=== PATIENT | female | born 1960 | race American Indian/Alaskan Native ===

== ENCOUNTER 2019-02-01 16:46 | Inpatient (IN) | payer MEDICAID, OTHER ==
[2019-02-01] MEDS ORDERED: NACL 0.9% 1000 ML 1,000 ML IV ONE (17:26)
--- NOTE | 2019-02-01 17:33 | Emergency Department Report ---
HPI - General Chief Complaint: Dyspnea/Respdistress Time Seen by Provider: 02/01/19 17:18 - HPI HPI: Room 24 The patient is a 58-year-old female presenting with a chief complaint of chest pain. Patient states she has felt weak for a long time. When asked for how long she's felt weak the patient replies "forever." The patient states she came to the emergency department this for the past week she's had a constant chest pain. Patient will not describe the quality of pain but states she also feels short of breath and dizzy. Patient denies nausea or vomiting. The patient has a history of metastatic breast CA and states she last received radiation one week ago HPI update Family at bedside states the patient was recently discharged from [facility] last week and was diagnosed with a lower extremity DVT. They state the patient does not have any advanced directives and she is Full Code Location: [See above] Duration: [See above] Quality: [See above] Severity: [See above] Modifying factors: [see above] Context: [see above] Mode of transportation: [not driving] ED Past Medical Hx - Past Medical History Hx of Cancer: Yes (breast CA) - Family History Family history: no significant - Social History Smoking Status: Never Smoker Substance Use Type: None - Medications Home Medications: Home Medications Medication Instructions Recorded Confirmed Last Taken Type No Known Home Medications [No 02/06/19 02/06/19 Unknown History Reported Home Medications] ED Review of Systems ROS: Stated complaint: SOB OF BREATH Other details as noted in HPI Constitutional: weakness Eyes: denies: eye pain ENT: denies: throat pain Respiratory: shortness of breath Cardiovascular: chest pain Endocrine: no symptoms reported Gastrointestinal: denies: nausea, vomiting Genitourinary: denies: dysuria Musculoskeletal: denies: back pain Neurological: denies: headache Physical Exam - Physical Exam Vital Signs: Vital Signs 02/01/19 02/01/19 17:11 17:14 Temperature 98.6 F 98.6 F Pulse Rate 125 H 125 H Respiratory 27 H 27 H Rate Blood Pressure 131/83 Blood Pressure 131/83 [Right] O2 Sat by Pulse 97 97 Oximetry Physical Exam: GENERAL: The patient is well-developed well-nourished female lying on stretcher exhibiting increased work of breathing. [] HEENT: Normocephalic. Atraumatic. Extraocular motions are intact. Patient has moist mucous membranes. NECK: Trachea midline CHEST/LUNGS: Increased work of breathing. Accessory muscle use HEART/CARDIOVASCULAR: Regular. There is tachycardia. There is no gallop rub or murmur. ABDOMEN: Abdomen is soft, nontender. Patient has normal bowel sounds. There is no abdominal distention. SKIN: There is no rash. There is no diaphoresis. NEURO: The patient is awake, alert, and oriented. The patient is cooperative. The patient has normal speech MUSCULOSKELETAL: There is no evidence of acute injury. ED Course Vital Signs 02/01/19 02/01/19 17:11 17:14 Temperature 98.6 F 98.6 F Pulse Rate 125 H 125 H Respiratory 27 H 27 H Rate Blood Pressure 131/83 Blood Pressure 131/83 [Right] O2 Sat by Pulse 97 97 Oximetry ED Medical Decision Making - Lab Data Result diagrams: 02/05/19 04:35 02/05/19 04:35 - EKG Data -: EKG Interpreted by Me EKG shows normal: sinus rhythm Rate: tachycardia - EKG Data When compared to previous EKG there are: previous EKG unavailable Interpretation: other (no ischemic changes seen) - Radiology Data Radiology results: report reviewed (chest x-ray), image reviewed (chest x-ray) interpreted by me: Chest x-ray-left lower lobe haziness. No pneumothorax [facility] [address] [place] [address] XRay Report Signed Patient: SUSAN MÉNDEZ MR#: [id number] 3 : 1960 Acct:[id number] Age/Sex: 58 / F ADM Date: 02/01/19 Loc: ED Attending Dr: Ordering Physician: PASCALE ANTOINE MD Date of Service: 02/01/19 Procedure(s): XR chest 1V ap Accession Number(s): [id number] cc: PASCALE ANTOINE MD Fluoro Time In Minutes: CHEST 1 VIEW 5:34 PM INDICATION / CLINICAL INFORMATION: Shortness of breath. COMPARISON: None available. FINDINGS: SUPPORT DEVICES: None. HEART / MEDIASTINUM: There is mild cardiomegaly with a left ventricular configuration. Pulmonary vasculature is borderline. LUNGS / PLEURA: There is dense consolidation in the left lower lobe with obscuration of the hemidiaphragm. There may be a small left pleural effusion. No pneumothorax. ADDITIONAL FINDINGS: There are bilateral rib fractures which are of uncertain age. There is moderate thoracolumbar scoliosis. There is mild mottled lucency in the distal right clavicle with a possible fracture present. There are also may be a lytic lesion in the distal left clavicle. IMPRESSION: 1. Left lower lobe pneumonia. 2. Bilateral rib fractures. Possible fracture of the distal right clavicle could be pathologic. Possible lytic lesion in the distal left clavicle. Signer Name: Mango Llanes MD Signed: 02/01/2019 5:53 PM Workstation Name: [id number] Transcribed By: RT Dictated By: Mango Llanes MD Electronically Authenticated By: Mango Llanes MD Signed Date/Time: 02/01/191752 DD/ 48 TD/TT: [facility] [address] [id number] Cat Scan Report Signed Patient: SUSAN MÉNDEZ MR#: [id number] 3 : 1960 Acct:[id number] Age/Sex: 58 / F ADM Date: 02/01/19 Loc: ED Attending Dr: Ordering Physician: PASCALE ANTOINE MD Date of Service: 02/01/19 Procedure(s): CT angio chest Accession Number(s): [id number] cc: PASCALE ANTOINE MD CTA CHEST WITH IV CONTRAST INDICATION: shortness of breath. Metastatic breast CA. TECHNIQUE: Axial CT images were obtained through the chest after injection of 100 cc Omni 350 IV contrast. 3 plane MIP reconstructions were produced. All CT scans at this location are performed using CT dose reduction for ALARA by means of automated exposure control. COMPARISON: None available. FINDINGS: PULMONARY ARTERIES: No pulmonary emboli. THORACIC AORTA: No acute abnormality. HEART: Heart is moderately enlarged CORONARY ARTERIES: No significant calcification. PLEURA: Small bilateral pleural effusions No pneumothorax. LYMPH NODES: No significant adenopathy. LUNGS: Compressive and linear bilateral atelectasis. ADDITIONAL FINDINGS: None. UPPER ABDOMEN: No acute findings. SKELETAL STRUCTURES: Extensive lytic metastases are seen throughout the rib cage bilaterally and along the th oracic vertebral bodies. There is an acute displaced fracture involving the left 10th rib. Multiple old healed bilateral rib fracture deformities are noted. IMPRESSION: 1. No CT evidence for pulmonary embolism. 2. Extensive lytic skeletal metastases with acute probable pathologic fracture involving the left 10th posterior rib. 3. Cardiomegaly with small bilateral pleural effusions. Signer Name: Yair Jansen MD Signed: 02/01/2019 10:08 PM Workstation Name: [id number] Transcribed By: TL Dictated By: Yair Jansen MD Electronically Authenticated By: Yair Jansen MD Signed Date/Time: 02/01/192207 DD/ 99 TD/TT: - Differential Diagnosis ACS, PE, pneumonia, sepsis Critical care attestation.: If time is entered above; I have spent that time in minutes in the direct care of this critically ill patient, excluding procedure time. ED Disposition Clinical Impression: Chest pain, Rib fractures, Pathologic fracture of clavicle Disposition: OP ADMIT IP TO THIS HOSP Is pt being admited?: Yes Does the pt Need Aspirin: Yes Condition: Fair
--- NOTE | 2019-02-01 17:57 | XRay Report ---
CHEST 1 VIEW 5:34 PM INDICATION / CLINICAL INFORMATION: Shortness of breath. COMPARISON: None available. FINDINGS: SUPPORT DEVICES: None. HEART / MEDIASTINUM: There is mild cardiomegaly with a left ventricular configuration. Pulmonary vasc ulature is borderline. LUNGS / PLEURA: There is dense consolidation in the left lower lobe with obscuration of the hemidiaph ragm. There may be a small left pleural effusion. No pneumothorax. ADDITIONAL FINDINGS: There are bilateral rib fractures which are of uncertain age. There is moderate thoracolumbar scoliosis. There is mild mottled lucency in the distal right clavicle with a possible f racture present. There are also may be a lytic lesion in the distal left clavicle. IMPRESSION: 1. Left lower lobe pneumonia. 2. Bilateral rib fractures. Possible fracture of the distal right clavicle could be pathologic. Possi ble lytic lesion in the distal left clavicle. Signer Name: Mango Llanes MD Signed: 02/01/2019 5:53 PM Workstation Name: [id number]
[2019-02-01 18:08] LABS: Hematocrit 30.1 % (30.3-42.9); Hemoglobin 10.1 gm/dl (10.1-14.3); Mean Corpuscular HGB Conc 34 % (30-34); Mean Corpuscular Volume 95 fl (79-97); Platelet Count 123 K/mm3 (140-440); Red Blood Count 3.18 M/mm3 (3.65-5.03)
[2019-02-01 18:11] LABS: Red Cell Distribution Width 25.1 % (13.2-15.2)
[2019-02-01 18:18] LABS: INR 1.22 (0.87-1.13)
[2019-02-01 18:19] LABS: Partial Thromboplastin Time 27.2 Sec. (24.2-36.6)
[2019-02-01 18:25] LABS: Creatine Kinase MB 3.8 ng/mL (0.0-4.0)
[2019-02-01 18:26] LABS: Alanine Aminotransferase 23 units/L (7-56); Albumin 3.2 g/dL (3.9-5); BUN/Creatinine Ratio 37; Blood Urea Nitrogen 11 mg/dL (7-17); Calcium 9.5 mg/dL (8.4-10.2); Hemolysis Index 36
[2019-02-01] MEDS ORDERED: ZITHROMAX 500 MG in NACL 0.9% 250ML 250 ML IV ONE (18:36)
[2019-02-01] MEDS ORDERED: ROCEPHIN/NS 2 GM/100 ML 2 GM/100 ML BAG IV ONE (18:36)
[2019-02-01 19:16] LABS: Anisocytosis 1+; Basophils % (Manual) 0 % (0.0-1.8); Dimorphic RBC Yes; Eosinophils % (Manual) 0 % (0.0-4.3); Ovalocytes Few; Target Cells 1+; Total Cells Counted 100
[2019-02-01 19:17] LABS: Large Platelets 1+; Platelet Estimate Consistent w Auto
--- NOTE | 2019-02-01 22:12 | Cat Scan Report ---
CTA CHEST WITH IV CONTRAST INDICATION: shortness of breath. Metastatic breast CA. TECHNIQUE: Axial CT images were obtained through the chest after injection of 100 cc Omni 350 IV contrast. 3 sol ne MIP reconstructions were produced. All CT scans at this location are performed using CT dose reduc tion for ALARA by means of automated exposure control. COMPARISON: None available. FINDINGS: PULMONARY ARTERIES: No pulmonary emboli. THORACIC AORTA: No acute abnormality. HEART: Heart is moderately enlarged CORONARY ARTERIES: No significant calcification. PLEURA: Small bilateral pleural effusions No pneumothorax. LYMPH NODES: No significant adenopathy. LUNGS: Compressive and linear bilateral atelectasis. ADDITIONAL FINDINGS: None. UPPER ABDOMEN: No acute findings. SKELETAL STRUCTURES: Extensive lytic metastases are seen throughout the rib cage bilaterally and narinder g the thoracic vertebral bodies. There is an acute displaced fracture involving the left 10th rib. Mu ltiple old healed bilateral rib fracture deformities are noted. IMPRESSION: 1. No CT evidence for pulmonary embolism. 2. Extensive lytic skeletal metastases with acute probable pathologic fracture involving the left 10t h posterior rib. 3. Cardiomegaly with small bilateral pleural effusions. Signer Name: Yair Jansen MD Signed: 02/01/2019 10:08 PM Workstation Name: [id number]
[2019-02-01] MEDS ORDERED: TORADOL IV ONE (22:15)
--- NOTE | 2019-02-01 22:18 | History and Physical Report ---
History of Present Illness Date of examination: 02/01/19 History of present illness: 58-year-old with a history of hypertension, metastatic breast cancer, because emergency room with complaints of chest pain located across the chest that started 3 months ago. francisco was diagnosed with breast cancer in 2013, status post lumpectomy, but over the last 3 months her cancer has metastasized, since then she has been having shortness of breath, started on home oxygen and chest pain secondary to metastases to the ribs and other bones. Also complaining of pain into the shoulders which are sharp, intermittent every 5 minutes, intensity 7/10, no radiation, relieved with Percocet at home. The patient also complaining of shortness of breath 2 months, she was placed on home oxygen. In the ER patient was placed on BiPAP She was admitted at [facility] January 21, she had presenting symptoms are shortness breath, chest pain. I have requested and reviewed the records. She had a V/Q which was negative for PE, Doppler was negative for DVT. 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 The patient was started on palliative radiation treatment 4 days ago. She was discharged to hospice from [facility], unclear if this was started Review of systems Constitutional: no weight loss, chills, fever Ears, eyes, nose, mouth and throat: no nasal congestion, no nasal discharge, no sinus pressure, no vision change, no red eye. Neck: No neck pain or rigidity. Cardiovascular: no palpitations, chest pain Respiratory: no cough, shortness of breath Gastrointestinal: no hematochezia, abdominal pain Genitourinary : no frequency , no hematuria Musculoskeletal: no joint swelling or muscle ache Integumentary: no rash, no pruritis Neurological: no parathesias, no focal weakness Endocrine: no cold or heat intolerance, no polyuria or polydipsia Hematologic/Lymphatic: no easy bruising, no easy bleeding, no gland swelling Allergic/Immunologic: no urticaria, no angioedema. PAST MEDICAL HISTORY:hypertension, metastatic breast cancer PAST SURGICAL HISTORY: Lumpectomy SOCIAL HISTORY: Denies alcohol, drugs, tobacco FAMILY HISTORY: Hypertension Medications and Allergies Allergies Allergy/AdvReac Type Severity Reaction Status Date / Time No Known Allergies Allergy Unverified 07/06/13 15:54 Home Medications Medication Instructions Recorded Confirmed Last Taken Type No Known Home Medications [No 02/06/19 02/06/19 Unknown History Reported Home Medications] Active Meds: Active Medications Ketorolac Tromethamine (Toradol) 15 mg IV ONCE ONE Stop: 02/01/19 22:16 Exam - Physical Exam Narrative exam: General Apperance: The patient lying in bed, breathing comfortable HEENT: Normocephalic, atraumatic. Pupils equally round and reactive to light, EOMI, no sclericterus or JVD or thyromegaly or nodule. , no carotid bruit, mucous membranes moist, no exudate or erythema Heart: S1-S2, regular is rhythm Lungs: Clear to auscultation bilaterally, breathing comfortable Abdomen: Positive bowel sounds, soft, nontender, nondistended, no organomegaly Extremities: No edema cyanosis clubbing Skin: no rash, nodule, warm and dry Neuro: cranial nerves 2-12 intact, speech is fluent, moves all four extremities - Constitutional Vitals: Temp Pulse Resp BP Pulse Ox 98.4 F 133 H 16 116/78 100 02/01/19 19:22 02/01/19 20:30 02/01/19 20:30 02/01/19 20:30 02/01/19 20:30 Results - Labs CBC & Chem 7: 02/08/19 04:20 02/08/19 04:20 Labs: Abnormal lab results 02/01/19 02/01/19 02/01/19 Range/Units 18:00 18:00 18:00 RBC 3.18 L (3.65-5.03) M/mm3 Hct 30.1 L (30.3-42.9) % RDW 25.1 H (13.2-15.2) % Plt Count 123 L (140-440) K/mm3 Seg Neuts % (Manual) 76.0 H (40.0-70.0) % Lymphocytes % (Manual) 12.0 L (13.4-35.0) % Monocytes % (Manual) 10.0 H (0.0-7.3) % Nucleated RBC % 15.0 H (0.0-0.9) % Lymphocytes # (Manual) 1.0 L (1.2-5.4) K/mm3 Monocytes # (Manual) 0.9 H (0.0-0.8) K/mm3 PT 15.1 H (12.2-14.9) Sec. INR 1.22 H (0.87-1.13) D-Dimer 6342.18 H (0-234) ng/mlDDU POC ABG pCO2 (35-45) POC ABG pO2 (80-105) Carbon Dioxide 32 H (22-30) mmol/L Creatinine 0.3 L (0.7-1.2) mg/dL Glucose 106 H (65-100) mg/dL AST 85 H (5-40) units/L NT-Pro-B Natriuret Pep 1304 H (0-900) pg/mL Albumin 3.2 L (3.9-5) g/dL 02/01/19 Range/Units 20:53 RBC (3.65-5.03) M/mm3 Hct (30.3-42.9) % RDW (13.2-15.2) % Plt Count (140-440) K/mm3 Seg Neuts % (Manual) (40.0-70.0) % Lymphocytes % (Manual) (13.4-35.0) % Monocytes % (Manual) (0.0-7.3) % Nucleated RBC % (0.0-0.9) % Lymphocytes # (Manual) (1.2-5.4) K/mm3 Monocytes # (Manual) (0.0-0.8) K/mm3 PT (12.2-14.9) Sec. INR (0.87-1.13) D-Dimer (0-234) ng/mlDDU POC ABG pCO2 52.0 H (35-45) POC ABG pO2 111 H (80-105) Carbon Dioxide (22-30) mmol/L Creatinine (0.7-1.2) mg/dL Glucose (65-100) mg/dL AST (5-40) units/L NT-Pro-B Natriuret Pep (0-900) pg/mL Albumin (3.9-5) g/dL - Imaging and Cardiology EKG: image reviewed Chest x-ray: image reviewed CT scan - chest: report reviewed Assessment and Plan Assessment Acute respiratory failure Chest pain secondary to multiple lytic lesions in the ribs Possible pathological fracture of rib 10 Metastatic breast cancer Plan Admit to medicine Consult sample case porter for hospice Continue BiPAP, DVT rophalaxis
[2019-02-01] MEDS ORDERED: NORCO 5/325 PO PRN (23:33)
[2019-02-01] MEDS ORDERED: SODIUM CHLORIDE FLUSH SYRINGE 10 ML IV PRN (23:33)
[2019-02-01] MEDS ORDERED: ZOFRAN IV PRN (23:33)
[2019-02-01] MEDS ORDERED: TYLENOL PO PRN (23:33)
[2019-02-02 04:59] LABS: Hemoglobin 9.5 gm/dl (10.1-14.3); Mean Corpuscular HGB Conc 34 % (30-34); Mean Corpuscular Volume 94 fl (79-97); Platelet Count 105 K/mm3 (140-440); Red Blood Count 2.97 M/mm3 (3.65-5.03)
[2019-02-02 05:14] LABS: BUN/Creatinine Ratio 37; Blood Urea Nitrogen 11 mg/dL (7-17); Hemolysis Index 4
[2019-02-02 05:27] LABS: Red Cell Distribution Width 24.8 % (13.2-15.2)
[2019-02-02] MEDS ORDERED: LOVENOX SUB-Q SCH (10:00)
[2019-02-02 12:10] LABS: Anisocytosis 2+; Basophils % (Manual) 0 % (0.0-1.8); Eosinophils % (Manual) 0 % (0.0-4.3); Total Cells Counted 100
[2019-02-02 12:11] LABS: Hypochromasia 1+; Macrocytosis 1+; Platelet Estimate Consistent w Auto
[2019-02-02] MEDS: D5/0.45NS 1,000 ML IV SCH (14:16)
[2019-02-02] MEDS: SODIUM CHLORIDE FLUSH SYRINGE 10 ML IV SCH ×2 (14:16→21:12)
--- NOTE | 2019-02-02 14:37 | Event Note ---
Date: 02/02/19 Long discussion at bedside, over 30 minutes discussing Pulmonary status and Intubation. Daughter, Brother and Sister at bedside. They claim to understand the current disease state but feel that the patient should be full code and resuscitated. RT has attempted several times to wean from bipap, each time she has failed. Per report and the daughter at the bedside, she was admitted to [place] with the same diagnosis and given the same prognosis. Per the daughter she was "doped up" and sent home with hospice. They have since rescinded and a re here now. I explained to them that intubation would not fix the underlying problem of Stage IV malignancy of the breast. I also explained to them that doing CPR (chest compressions and shocks) are going to cause more harm than good for the patient as they too do not fix the underlying problem as listed above. I never once told the family that they had to make a choice between breathing and feeding. what I explained to them that feeding is contraindicated on a patient with continuous bipap therapy as they are at a higher risk of aspiration. The family began to ask me about other option for feeding and I had to stop because that is not why I was consulted. The family requests that she remain a full code and this is documented. At this time, she is on 12/6 and 35%. She will likely progress, the time frame I do not know. When she requires intubation, will intubate and then transfer to unit for further care. Daughter was very upset when I left and I apologized if I made her upset, but my job is to explain the current clinical situation to the best of my abilities to help the family understand the severity. Please call if questions.
--- NOTE | 2019-02-02 16:51 | Progress Note ---
Assessment and Plan Assessment and plan: 58-year-old Tuval[place] female with medical history significant for stage IV breast cancer, metastasis to the bone and to the spinal cord with spinal compression is interested to the emergency department with complaints of shortness of breath. CTA was done in the emergency department and no PE was shown. Patient was recently discharged from [facility] to hospice care. I get the record from [facility] and she was admitted with the same problems. patient is full code and family wants everything to be done and don't want hospice care instead they want HH at discharge Acute on chronic hypoxic respiratory failure - Patient was on home oxygen - Continue BiPAP - Pulmonary consult appreciated - If patient deteriorates will intubate her Persistent tachycardia - Continue on Lopressor IV when necessary Stage IV breast cancer, with metastatsis to the bone and spine - Supportive care - Was treated with palliative intent therapy at [facility] - patient is on D5 half normal saline - Patient refused NG tube feeding - We can now take off the BiPAP because patient is desaturating CODE STATUS full Disposition; continue inpatient care. Patient is high risk of deterioration. The high probability of a clinically significant, sudden or life threatening deterioration of the [respiratory, CVS] system(s) required my full and direct attention, intervention and personal management. The aggregate critical care time was [45] minutes. This time is in addition to time spent performing report ed procedures but includes the following: [x] Data Review and interpretation [x] Patient assessment and monitoring of vital signs [x] Documentation [x] Medication orders and management History Interval history: Patient was seen and evaluated this morning, patient is in no respiratory distress. She is on BiPAP. Hospitalist Physical - Physical exam Narrative exam: patient is in respiratory distress. The patient appeared well nourished and normally developed. Vital signs as documented. Head exam is unremarkable. No scleral icterus . Neck is without jugular venous distension, thyromegaly, or carotid bruits. Lungs are clear to auscultation. Cardiac exam reveals tachycardia. Abdominal exam reveals normal bowel sounds, no masses, no organomegaly and no aortic enlargement. Extremities are nonedematous and both femoral and pedal pulses are normal. DIVISION CONTROLLER: Alert and oriented 3. No focal weakness. - Constitutional Vitals: Temp Pulse Resp BP Pulse Ox 97.9 F 133 H 31 H 121/73 98 02/02/19 12:39 02/02/19 15:36 02/02/19 15:36 02/02/19 12:39 02/02/19 15:36 Results - Labs CBC & Chem 7: 02/02/19 03:54 02/02/19 03:54 Labs: Laboratory Last Values WBC 5.6 K/mm3 (4.5-11.0) 02/02/19 03:54 RBC 2.97 M/mm3 (3.65-5.03) L 02/02/19 03:54 Hgb 9.5 gm/dl (10.1-14.3) L 02/02/19 03:54 Hct 28.0 % (30.3-42.9) L 02/02/19 03:54 MCV 94 fl (79-97) 02/02/19 03:54 MCH 32 pg (28-32) 02/02/19 03:54 MCHC 34 % (30-34) 02/02/19 03:54 RDW 24.8 % (13.2-15.2) H 02/02/19 03:54 Plt Count 105 K/mm3 (140-440) L 02/02/19 03:54 [place] % (Auto) Die Cast Operator 02/02/19 03:54 Add Manual Diff Complete 02/02/19 03:54 Total Counted 100 02/02/19 03:54 Seg Neuts % (Manual) 79.0 % (40.0-70.0) H 02/02/19 03:54 3.0 % 02/02/19 03:54 5.0 % (13.4-35.0) L 02/02/19 03:54 Reactive Lymphs % (Man) 0 % 02/02/19 03:54 12.0 % (0.0-7.3) H 02/02/19 03:54 0 % (0.0-4.3) 02/02/19 03:54 0 % (0.0-1.8) 02/02/19 03:54 0 % 02/02/19 03:54 1.0 % 02/02/19 03:54 0 % 02/02/19 03:54 0 % 02/02/19 03:54 Nucleated RBC % 31.0 % (0.0-0.9) H 02/02/19 03:54 Seg Neutrophils # Man 0.0 K/mm3 (1.8-7.7) L 02/02/19 03:54 Band Neutrophils # 0.0 K/mm3 02/02/19 03:54 0.0 K/mm3 (1.2-5.4) L 02/02/19 03:54 Abs React Lymphs (Man) 0.0 K/mm3 02/02/19 03:54 0.0 K/mm3 (0.0-0.8) 02/02/19 03:54 0.0 K/mm3 (0.0-0.4) 02/02/19 03:54 0.0 K/mm3 (0.0-0.1) 02/02/19 03:54 0.0 K/mm3 02/02/19 03:54 0.0 K/mm3 02/02/19 03:54 0.0 K/mm3 02/02/19 03:54 Blast Cells # 0.0 K/mm3 02/02/19 03:54 WBC Morphology Not Reportable 02/02/19 03:54 Hypersegmented Neuts Not Reportable 02/02/19 03:54 Hyposegmented Neuts Not Reportable 02/02/19 03:54 Hypogranular Neuts Not Reportable 02/02/19 03:54 Not Reportable 02/02/19 03:54 Not Reportable 02/02/19 03:54 Not Reportable 02/02/19 03:54 Not Reportable 02/02/19 03:54 Not Reportable 02/02/19 03:54 Not Reportable 02/02/19 03:54 Consistent w auto 02/02/19 03:54 Not Reportable 02/02/19 03:54 Plt Clumps, EDTA Not Reportable 02/02/19 03:54 Not Reportable 02/02/19 03:54 Not Reportable 02/02/19 03:54 Not Reportable 02/02/19 03:54 Plt Morphology Comment Not Reportable 02/02/19 03:54 RBC Morphology Not Reportable 02/02/19 03:54 Dimorphic RBCs Not Reportable 02/02/19 03:54 Few 02/02/19 03:54 1+ 02/02/19 03:54 Not Reportable 02/02/19 03:54 2+ 02/02/19 03:54 Not Reportable 02/02/19 03:54 1+ 02/02/19 03:54 Not Reportable 02/02/19 03:54 Not Reportable 02/02/19 03:54 Not Reportable 02/02/19 03:54 Not Reportable 02/02/19 03:54 Not Reportable 02/02/19 03:54 Not Reportable 02/02/19 03:54 Not Reportable 02/02/19 03:54 Not Reportable 02/02/19 03:54 Not Reportable 02/02/19 03:54 Not Reportable 02/02/19 03:54 Not Reportable 02/02/19 03:54 Not Reportable 02/02/19 03:54 Not Reportable 02/02/19 03:54 Acanthocytes (Spur) Not Reportable 02/02/19 03:54 Rouleaux Not Reportable 02/02/19 03:54 Not Reportable 02/02/19 03:54 Not Reportable 02/02/19 03:54 Not Reportable 02/02/19 03:54 Not Reportable 02/02/19 03:54 Hem Pathologist Commnt No 02/02/19 03:54 PT 15.1 Sec. (12.2-14.9) H 02/01/19 18:00 INR 1.22 (0.87-1.13) H 02/01/19 18:00 APTT 27.2 Sec. (24.2-36.6) 02/01/19 18:00 6342.18 ng/mlDDU (0-234) H 02/01/19 18:00 POC ABG pH 7.449 (7.35-7.45) 02/02/19 09:49 POC ABG pCO2 39.9 (35-45) 02/02/19 09:49 POC ABG pO2 72 (80-105) L 02/02/19 09:49 POC ABG HCO3 27.6 (22-26 mml/L) 02/02/19 09:49 POC ABG Total CO2 29 (23-27mmol/L) 02/02/19 09:49 POC ABG O2 Sat 95 02/02/19 09:49 POC ABG Base Excess 4 ((-2) - (+3)mmol/L) 02/02/19 09:49 35 % 02/02/19 09:49 Sodium 145 mmol/L (137-145) 02/02/19 03:54 Potassium 3.9 mmol/L (3.6-5.0) 02/02/19 03:54 Chloride 105.5 mmol/L (98-107) 02/02/19 03:54 Carbon Dioxide 29 mmol/L (22-30) 02/02/19 03:54 14 mmol/L 02/02/19 03:54 BUN 11 mg/dL (7-17) 02/02/19 03:54 0.3 mg/dL (0.7-1.2) L 02/02/19 03:54 Estimated GFR > 60 ml/min 02/02/19 03:54 37 % 02/02/19 03:54 Glucose 103 mg/dL (65-100) H 02/02/19 03:54 Calcium 9.0 mg/dL (8.4-10.2) 02/02/19 03:54 0.80 mg/dL (0.1-1.2) 02/01/19 18:00 AST 85 units/L (5-40) H 02/01/19 18:00 ALT 23 units/L (7-56) 02/01/19 18:00 99 units/L (35-129) 02/01/19 18:00 132 units/L (30-135) 02/01/19 18:00 CK-MB (CK-2) 3.8 ng/mL (0.0-4.0) 02/01/19 18:00 CK-MB (CK-2) Rel Index 2.8 (0-4) 02/01/19 18:00 < 0.010 ng/mL (0.00-0.029) 02/01/19 18:00 NT-Pro-B Natriuret Pep 1304 pg/mL (0-900) H 02/01/19 18:00 6.6 g/dL (6.3-8.2) 02/01/19 18:00 3.2 g/dL (3.9-5) L 02/01/19 18:00 0.9 % 02/01/19 18:00 Active Medications - Current Medications Current Medications: Generic Name Dose Route Start Last Admin Trade Name Freq PRN Reason Stop Dose Admin Acetaminophen 650 mg 02/01/19 23:33 Tylenol PO Q4H PRN Pain MILD(1-3)/Fever >100.5/PEREZ Acetaminophen/Hydrocodone Bitart 2 each 02/01/19 23:33 [place] 5/325 PO Q6H PRN Pain, Moderate (4-6) Hydromorphone HCl 0.5 mg 02/02/19 09:04 Dilaudid IV Q3H PRN Pain , Severe (7-10) Dextrose/Sodium Chloride 1,000 mls @ 75 mls/hr 02/02/19 14:00 02/02/19 14:16 D5/0.45ns IV 75 mls/hr DIRECT AYO Administration Metoprolol Tartrate 2.5 mg 02/02/19 16:33 Lopressor IV Q6HR PRN tachycardia Ondansetron HCl 4 mg 02/01/19 23:33 Zofran IV Q8H PRN Nausea And Vomiting Sodium Chloride 10 ml 02/02/19 10:00 02/02/19 14:16 Sodium Chloride Flush Syringe 10 Ml IV 10 ml BID AYO Administration Sodium Chloride 10 ml 02/01/19 23:33 Sodium Chloride Flush Syringe 10 Ml IV PRN PRN LINE FLUSH Nutrition/Malnutrition Assess - Dietary Evaluation Nutrition/Malnutrition Findings: Nutrition Notes Start: 02/02/19 15:14 Freq: Status: Active Protocol: Document 02/02/19 15:14 RM (Rec: 02/02/19 15:15 RM [id number]) Nutrition Notes Need for Assessment generated from: [facility] Initial or Follow up Brief Note Subjective/Other Information Screened for malnutrition. Pt w/MD at time of visit. Nutrition Intervention Follow-Up By: 02/03/19 Additional Comments Follow for malnutrition assessment
[2019-02-02] MEDS: DILAUDID IV PRN (16:59)
[2019-02-02] MEDS: LOPRESSOR IV PRN (17:43)
[2019-02-03] MEDS: D5/0.45NS 1,000 ML IV SCH ×2 (02:26→17:53)
[2019-02-03] MEDS: LOPRESSOR IV PRN (05:14)
[2019-02-03 05:40] LABS: Hematocrit 26.5 % (30.3-42.9); Hemoglobin 8.7 gm/dl (10.1-14.3); Mean Corpuscular HGB Conc 33 % (30-34); Mean Corpuscular Volume 95 fl (79-97)
[2019-02-03 05:43] LABS: Red Cell Distribution Width 24.5 % (13.2-15.2)
[2019-02-03 05:48] LABS: BUN/Creatinine Ratio 43; Blood Urea Nitrogen 13 mg/dL (7-17); Calcium 8.7 mg/dL (8.4-10.2); Hemolysis Index 83
[2019-02-03] MEDS: DILAUDID IV PRN (06:10)
[2019-02-03 08:26] LABS: Anisocytosis 2+; Basophils % (Manual) 0 % (0.0-1.8); Total Cells Counted 100
[2019-02-03 08:27] LABS: Poikilocytosis 1+; Target Cells 1+
[2019-02-03 08:28] LABS: Platelet Count 108 K/mm3 (140-440); Platelet Estimate Consistent w Auto; Schistocytes Rare
--- NOTE | 2019-02-03 15:28 | Progress Note ---
Assessment and Plan Assessment and plan: 58-year-old [place] female with medical history significant for stage IV breast cancer, metastasis to the bone and to the spinal cord with spinal compression is interested to the emergency department with complaints of shortness of breath. CTA was done in the emergency department and no PE was shown. Patient was recently discharged from [facility] to hospice care. I get the record from [facility] and she was admitted with the same problems. patient is full code and family wants everything to be done and don't want hospice care instead they want HH at discharge Acute on chronic hypoxic respiratory failure - Patient was on home oxygen - Continue BiPAP - Pulmonary consult appreciated - If patient deteriorates will intubate her Persistent tachycardia - Continue on Lopressor IV when necessary Stage IV breast cancer, with metastatsis to the bone and spine, paraplegia - Supportive care - Was treated with palliative intent therapy at [facility] - patient is on D5 half normal saline - Patient refused NG tube feeding - We can now take off the BiPAP because patient is desaturating CODE STATUS full Disposition; continue inpatient care. History Interval history: Patient was seen and evaluated this morning, patient is in no respiratory distress. She is on BiPAP. Hospitalist Physical - Physical exam Narrative exam: patient is in respiratory distress. The patient appeared well nourished and normally developed. Vital signs as documented. Head exam is unremarkable. No scleral icterus . Neck is without jugular venous distension, thyromegaly, or carotid bruits. Lungs are clear to auscultation. Cardiac exam reveals tachycardia. Abdominal exam reveals normal bowel sounds, no masses, no organomegaly and no aortic enlargement. Extremities are nonedematous and both femoral and pedal pulses are normal. 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 - Constitutional Vitals: Temp Pulse Resp BP Pulse Ox 97.3 F L 117 H 19 114/76 98 02/02/19 23:54 02/03/19 07:03 02/03/19 07:03 02/02/19 23:54 02/03/19 07:03 Results - Labs CBC & Chem 7: 02/03/19 04:43 02/03/19 04:43 Labs: Laboratory Last Values WBC 6.5 K/mm3 (4.5-11.0) 02/03/19 04:43 RBC 2.80 M/mm3 (3.65-5.03) L 02/03/19 04:43 Hgb 8.7 gm/dl (10.1-14.3) L 02/03/19 04:43 Hct 26.5 % (30.3-42.9) L 02/03/19 04:43 MCV 95 fl (79-97) 02/03/19 04:43 MCH 31 pg (28-32) 02/03/19 04:43 MCHC 33 % (30-34) 02/03/19 04:43 RDW 24.5 % (13.2-15.2) H 02/03/19 04:43 Plt Count 108 K/mm3 (140-440) L 02/03/19 04:43 Lymph % (Auto) Swine Nutritionist 02/03/19 04:43 [place] % (Auto) Swine Nutritionist 02/03/19 04:43 Eos % (Auto) Swine Nutritionist 02/03/19 04:43 Baso % (Auto) Swine Nutritionist 02/03/19 04:43 Lymph # Swine Nutritionist 02/03/19 04:43 [place] # Swine Nutritionist 02/03/19 04:43 Eos # Swine Nutritionist 02/03/19 04:43 Baso # Swine Nutritionist 02/03/19 04:43 Add Manual Diff Complete 02/03/19 04:43 Total Counted 100 02/03/19 04:43 Seg Neutrophils % Swine Nutritionist 02/03/19 04:43 Seg Neuts % (Manual) 70.0 % (40.0-70.0) 02/03/19 04:43 2.0 % 02/03/19 04:43 8.0 % (13.4-35.0) L 02/03/19 04:43 Reactive Lymphs % (Man) 0 % 02/03/19 04:43 16.0 % (0.0-7.3) H 02/03/19 04:43 1.0 % (0.0-4.3) 02/03/19 04:43 0 % (0.0-1.8) 02/03/19 04:43 3.0 % 02/03/19 04:43 0 % 02/03/19 04:43 0 % 02/03/19 04:43 0 % 02/03/19 04:43 Nucleated RBC % 43.0 % (0.0-0.9) H 02/03/19 04:43 Seg Neutrophils # Swine Nutritionist 02/03/19 04:43 Seg Neutrophils # Man 0.0 K/mm3 (1.8-7.7) L 02/03/19 04:43 Band Neutrophils # 0.0 K/mm3 02/03/19 04:43 0.0 K/mm3 (1.2-5.4) L 02/03/19 04:43 Abs React Lymphs (Man) 0.0 K/mm3 02/03/19 04:43 0.0 K/mm3 (0.0-0.8) 02/03/19 04:43 0.0 K/mm3 (0.0-0.4) 02/03/19 04:43 0.0 K/mm3 (0.0-0.1) 02/03/19 04:43 0.0 K/mm3 02/03/19 04:43 0.0 K/mm3 02/03/19 04:43 0.0 K/mm3 02/03/19 04:43 Blast Cells # 0.0 K/mm3 02/03/19 04:43 WBC Morphology Not Reportable 02/03/19 04:43 Hypersegmented Neuts Not Reportable 02/03/19 04:43 Hyposegmented Neuts Not Reportable 02/03/19 04:43 Hypogranular Neuts Not Reportable 02/03/19 04:43 Not Reportable 02/03/19 04:43 Not Reportable 02/03/19 04:43 Not Reportable 02/03/19 04:43 Not Reportable 02/03/19 04:43 Not Reportable 02/03/19 04:43 Not Reportable 02/03/19 04:43 Consistent w auto 02/03/19 04:43 Not Reportable 02/03/19 04:43 Plt Clumps, EDTA Not Reportable 02/03/19 04:43 Not Reportable 02/03/19 04:43 Not Reportable 02/03/19 04:43 Not Reportable 02/03/19 04:43 Plt Morphology Comment Not Reportable 02/03/19 04:43 RBC Morphology Not Reportable 02/03/19 04:43 Dimorphic RBCs Not Reportable 02/03/19 04:43 Few 02/03/19 04:43 Not Reportable 02/03/19 04:43 1+ 02/03/19 04:43 2+ 02/03/19 04:43 Not Reportable 02/03/19 04:43 Not Reportable 02/03/19 04:43 Not Reportable 02/03/19 04:43 Not Reportable 02/03/19 04:43 Not Reportable 02/03/19 04:43 1+ 02/03/19 04:43 Not Reportable 02/03/19 04:43 Not Reportable 02/03/19 04:43 Not Reportable 02/03/19 04:43 Not Reportable 02/03/19 04:43 Not Reportable 02/03/19 04:43 Not Reportable 02/03/19 04:43 Not Reportable 02/03/19 04:43 Not Reportable 02/03/19 04:43 Not Reportable 02/03/19 04:43 Acanthocytes (Spur) Not Reportable 02/03/19 04:43 Rouleaux Not Reportable 02/03/19 04:43 Not Reportable 02/03/19 04:43 Rare 02/03/19 04:43 Not Reportable 02/03/19 04:43 Not Reportable 02/03/19 04:43 Hem Pathologist Commnt No 02/03/19 04:43 PT 15.1 Sec. (12.2-14.9) H 02/01/19 18:00 INR 1.22 (0.87-1.13) H 02/01/19 18:00 APTT 27.2 Sec. (24.2-36.6) 02/01/19 18:00 6342.18 ng/mlDDU (0-234) H 02/01/19 18:00 POC ABG pH 7.449 (7.35-7.45) 02/02/19 09:49 POC ABG pCO2 39.9 (35-45) 02/02/19 09:49 POC ABG pO2 72 (80-105) L 02/02/19 09:49 POC ABG HCO3 27.6 (22-26 mml/L) 02/02/19 09:49 POC ABG Total CO2 29 (23-27mmol/L) 02/02/19 09:49 POC ABG O2 Sat 95 02/02/19 09:49 POC ABG Base Excess 4 ((-2) - (+3)mmol/L) 02/02/19 09:49 35 % 02/02/19 09:49 Sodium 145 mmol/L (137-145) 02/03/19 04:43 Potassium 4.4 mmol/L (3.6-5.0) 02/03/19 04:43 Chloride 108.1 mmol/L (98-107) H 02/03/19 04:43 Carbon Dioxide 26 mmol/L (22-30) 02/03/19 04:43 15 mmol/L 02/03/19 04:43 BUN 13 mg/dL (7-17) 02/03/19 04:43 0.3 mg/dL (0.7-1.2) L 02/03/19 04:43 Estimated GFR > 60 ml/min 02/03/19 04:43 43 % 02/03/19 04:43 Glucose 145 mg/dL (65-100) H 02/03/19 04:43 Calcium 8.7 mg/dL (8.4-10.2) 02/03/19 04:43 0.80 mg/dL (0.1-1.2) 02/01/19 18:00 AST 85 units/L (5-40) H 02/01/19 18:00 ALT 23 units/L (7-56) 02/01/19 18:00 99 units/L (35-129) 02/01/19 18:00 132 units/L (30-135) 02/01/19 18:00 CK-MB (CK-2) 3.8 ng/mL (0.0-4.0) 02/01/19 18:00 CK-MB (CK-2) Rel Index 2.8 (0-4) 02/01/19 18:00 < 0.010 ng/mL (0.00-0.029) 02/01/19 18:00 NT-Pro-B Natriuret Pep 1304 pg/mL (0-900) H 02/01/19 18:00 6.6 g/dL (6.3-8.2) 02/01/19 18:00 3.2 g/dL (3.9-5) L 02/01/19 18:00 0.9 % 02/01/19 18:00 Active Medications - Current Medications Current Medications: Generic Name Dose Route Start Last Admin Trade Name Freq PRN Reason Stop Dose Admin Acetaminophen 650 mg 02/01/19 23:33 Tylenol PO Q4H PRN Pain MILD(1-3)/Fever >100.5/PEREZ Acetaminophen/Hydrocodone Bitart 2 each 02/01/19 23:33 [place] 5/325 PO Q6H PRN Pain, Moderate (4-6) Hydromorphone HCl 0.5 mg 02/02/19 09:04 02/03/19 06:10 Dilaudid IV 0.5 mg Q3H PRN Administration Pain , Severe (7-10) Dextrose/Sodium Chloride 1,000 mls @ 75 mls/hr 02/02/19 14:00 02/03/19 02:26 D5/0.45ns IV 75 mls/hr DIRECT AYO Administration Metoprolol Tartrate 2.5 mg 02/02/19 16:33 02/03/19 05:14 Lopressor IV 2.5 mg Q6HR PRN Administration tachycardia Ondansetron HCl 4 mg 02/01/19 23:33 Zofran IV Q8H PRN Nausea And Vomiting Sodium Chloride 10 ml 02/02/19 10:00 02/02/19 21:12 Sodium Chloride Flush Syringe 10 Ml IV 10 ml BID AYO Administration Sodium Chloride 10 ml 02/01/19 23:33 Sodium Chloride Flush Syringe 10 Ml IV PRN PRN LINE FLUSH Nutrition/Malnutrition Assess - Dietary Evaluation Nutrition/Malnutrition Findings: Nutrition Notes Start: 02/02/19 15:14 Freq: Status: Active Protocol: Document 02/02/19 15:14 RM (Rec: 02/02/19 15:15 [id number]) Nutrition Notes Need for Assessment generated from: [facility] Initial or Follow up Brief Note Subjective/Other Information Screened for malnutrition. Pt w/MD at time of visit. Nutrition Intervention Follow-Up By: 02/03/19 Additional Comments Follow for malnutrition assessment
[2019-02-03] MEDS: SODIUM CHLORIDE FLUSH SYRINGE 10 ML IV SCH (17:53)
[2019-02-04] MEDS: DILAUDID IV PRN ×2 (00:25→19:58)
[2019-02-04] MEDS: SODIUM CHLORIDE FLUSH SYRINGE 10 ML IV SCH ×3 (00:26→21:19)
[2019-02-04] MEDS: D5/0.45NS 1,000 ML IV SCH (04:57)
--- NOTE | 2019-02-04 13:30 | Progress Note ---
Assessment and Plan Assessment and plan: 58-year-old [place] female with medical history significant for stage IV breast cancer, metastasis to the bone and to the spinal cord with spinal compression is interested to the emergency department with complaints of shortness of breath. CTA was done in the emergency department and no PE was shown. Patient was recently discharged from [facility] to hospice care. I get the record from [facility] and she was admitted with the same problems. patient is full code and family wants everything to be done and don't want hospice care instead they want HH at discharge Acute on chronic hypoxic respiratory failure - Patient was on home oxygen - Continue BiPAP - Pulmonary consult appreciated - If patient deteriorates will intubate her Persistent tachycardia - Continue on Lopressor IV when necessary Stage IV breast cancer, with metastatsis to the bone and spine, paraplegia - Supportive care - Was treated with palliative intent therapy at [facility] - patient is on D5 half normal saline - Patient refused NG tube feeding - We can now take off the BiPAP because patient is desaturating CODE STATUS full Disposition; continue inpatient care. History Interval history: Patient was seen and evaluated this morning, patient is in no respiratory distress. She is on BiPAP. Hospitalist Physical - Physical exam Narrative exam: patient is in respiratory distress. The patient appeared well nourished and normally developed. Vital signs as documented. Head exam is unremarkable. No scleral icterus . Neck is without jugular venous distension, thyromegaly, or carotid bruits. Lungs are clear to auscultation. Cardiac exam reveals tachycardia. Abdominal exam reveals normal bowel sounds, no masses, no organomegaly and no aortic enlargement. Extremities are nonedematous and both femoral and pedal pulses are normal. ACCESS CONTROL OFFICER:paraplegic. - Constitutional Vitals: Temp Pulse Resp BP Pulse Ox 97.8 F 101 H 20 126/75 99 02/04/19 08:57 02/04/19 10:00 02/04/19 08:57 02/04/19 08:57 02/04/19 08:57 Results - Labs CBC & Chem 7: 02/03/19 04:43 02/03/19 04:43 Labs: Laboratory Last Values WBC 6.5 K/mm3 (4.5-11.0) 02/03/19 04:43 RBC 2.80 M/mm3 (3.65-5.03) L 02/03/19 04:43 Hgb 8.7 gm/dl (10.1-14.3) L 02/03/19 04:43 Hct 26.5 % (30.3-42.9) L 02/03/19 04:43 MCV 95 fl (79-97) 02/03/19 04:43 MCH 31 pg (28-32) 02/03/19 04:43 MCHC 33 % (30-34) 02/03/19 04:43 RDW 24.5 % (13.2-15.2) H 02/03/19 04:43 Plt Count 108 K/mm3 (140-440) L 02/03/19 04:43 Lymph % (Auto) Bilingual Instructor 02/03/19 04:43 [place] % (Auto) Bilingual Instructor 02/03/19 04:43 Eos % (Auto) Bilingual Instructor 02/03/19 04:43 Baso % (Auto) Bilingual Instructor 02/03/19 04:43 Lymph # Bilingual Instructor 02/03/19 04:43 Mobile # Bilingual Instructor 02/03/19 04:43 Eos # Bilingual Instructor 02/03/19 04:43 Baso # Bilingual Instructor 02/03/19 04:43 Add Manual Diff Complete 02/03/19 04:43 Total Counted 100 02/03/19 04:43 Seg Neutrophils % Bilingual Instructor 02/03/19 04:43 Seg Neuts % (Manual) 70.0 % (40.0-70.0) 02/03/19 04:43 2.0 % 02/03/19 04:43 8.0 % (13.4-35.0) L 02/03/19 04:43 Reactive Lymphs % (Man) 0 % 02/03/19 04:43 16.0 % (0.0-7.3) H 02/03/19 04:43 1.0 % (0.0-4.3) 02/03/19 04:43 0 % (0.0-1.8) 02/03/19 04:43 3.0 % 02/03/19 04:43 0 % 02/03/19 04:43 0 % 02/03/19 04:43 0 % 02/03/19 04:43 Nucleated RBC % 43.0 % (0.0-0.9) H 02/03/19 04:43 Seg Neutrophils # Bilingual Instructor 02/03/19 04:43 Seg Neutrophils # Man 0.0 K/mm3 (1.8-7.7) L 02/03/19 04:43 Band Neutrophils # 0.0 K/mm3 02/03/19 04:43 0.0 K/mm3 (1.2-5.4) L 02/03/19 04:43 Abs React Lymphs (Man) 0.0 K/mm3 02/03/19 04:43 0.0 K/mm3 (0.0-0.8) 02/03/19 04:43 0.0 K/mm3 (0.0-0.4) 02/03/19 04:43 0.0 K/mm3 (0.0-0.1) 02/03/19 04:43 0.0 K/mm3 02/03/19 04:43 0.0 K/mm3 02/03/19 04:43 0.0 K/mm3 02/03/19 04:43 Blast Cells # 0.0 K/mm3 02/03/19 04:43 WBC Morphology Not Reportable 02/03/19 04:43 Hypersegmented Neuts Not Reportable 02/03/19 04:43 Hyposegmented Neuts Not Reportable 02/03/19 04:43 Hypogranular Neuts Not Reportable 02/03/19 04:43 Not Reportable 02/03/19 04:43 Not Reportable 02/03/19 04:43 Not Reportable 02/03/19 04:43 Not Reportable 02/03/19 04:43 Not Reportable 02/03/19 04:43 Not Reportable 02/03/19 04:43 Consistent w auto 02/03/19 04:43 Not Reportable 02/03/19 04:43 Plt Clumps, EDTA Not Reportable 02/03/19 04:43 Not Reportable 02/03/19 04:43 Not Reportable 02/03/19 04:43 Not Reportable 02/03/19 04:43 Plt Morphology Comment Not Reportable 02/03/19 04:43 RBC Morphology Not Reportable 02/03/19 04:43 Dimorphic RBCs Not Reportable 02/03/19 04:43 Few 02/03/19 04:43 Not Reportable 02/03/19 04:43 1+ 02/03/19 04:43 2+ 02/03/19 04:43 Not Reportable 02/03/19 04:43 Not Reportable 02/03/19 04:43 Not Reportable 02/03/19 04:43 Not Reportable 02/03/19 04:43 Not Reportable 02/03/19 04:43 1+ 02/03/19 04:43 Not Reportable 02/03/19 04:43 Not Reportable 02/03/19 04:43 Not Reportable 02/03/19 04:43 Not Reportable 02/03/19 04:43 Not Reportable 02/03/19 04:43 Not Reportable 02/03/19 04:43 Not Reportable 02/03/19 04:43 Not Reportable 02/03/19 04:43 Not Reportable 02/03/19 04:43 Acanthocytes (Spur) Not Reportable 02/03/19 04:43 Rouleaux Not Reportable 02/03/19 04:43 Not Reportable 02/03/19 04:43 Rare 02/03/19 04:43 Not Reportable 02/03/19 04:43 Not Reportable 02/03/19 04:43 Hem Pathologist Commnt No 02/03/19 04:43 PT 15.1 Sec. (12.2-14.9) H 02/01/19 18:00 INR 1.22 (0.87-1.13) H 02/01/19 18:00 APTT 27.2 Sec. (24.2-36.6) 02/01/19 18:00 6342.18 ng/mlDDU (0-234) H 02/01/19 18:00 POC ABG pH 7.449 (7.35-7.45) 02/02/19 09:49 POC ABG pCO2 39.9 (35-45) 02/02/19 09:49 POC ABG pO2 72 (80-105) L 02/02/19 09:49 POC ABG HCO3 27.6 (22-26 mml/L) 02/02/19 09:49 POC ABG Total CO2 29 (23-27mmol/L) 02/02/19 09:49 POC ABG O2 Sat 95 02/02/19 09:49 POC ABG Base Excess 4 ((-2) - (+3)mmol/L) 02/02/19 09:49 35 % 02/02/19 09:49 Sodium 145 mmol/L (137-145) 02/03/19 04:43 Potassium 4.4 mmol/L (3.6-5.0) 02/03/19 04:43 Chloride 108.1 mmol/L (98-107) H 02/03/19 04:43 Carbon Dioxide 26 mmol/L (22-30) 02/03/19 04:43 15 mmol/L 02/03/19 04:43 BUN 13 mg/dL (7-17) 02/03/19 04:43 0.3 mg/dL (0.7-1.2) L 02/03/19 04:43 Estimated GFR > 60 ml/min 02/03/19 04:43 43 % 02/03/19 04:43 Glucose 145 mg/dL (65-100) H 02/03/19 04:43 Calcium 8.7 mg/dL (8.4-10.2) 02/03/19 04:43 0.80 mg/dL (0.1-1.2) 02/01/19 18:00 AST 85 units/L (5-40) H 02/01/19 18:00 ALT 23 units/L (7-56) 02/01/19 18:00 99 units/L (35-129) 02/01/19 18:00 132 units/L (30-135) 02/01/19 18:00 CK-MB (CK-2) 3.8 ng/mL (0.0-4.0) 02/01/19 18:00 CK-MB (CK-2) Rel Index 2.8 (0-4) 02/01/19 18:00 < 0.010 ng/mL (0.00-0.029) 02/01/19 18:00 NT-Pro-B Natriuret Pep 1304 pg/mL (0-900) H 02/01/19 18:00 6.6 g/dL (6.3-8.2) 02/01/19 18:00 3.2 g/dL (3.9-5) L 02/01/19 18:00 0.9 % 02/01/19 18:00 Active Medications - Current Medications Current Medications: Generic Name Dose Route Start Last Admin Trade Name Freq PRN Reason Stop Dose Admin Acetaminophen 650 mg 07/17/19 23:33 Tylenol PO Q4H PRN Pain MILD(1-3)/Fever >100.5/PEREZ Acetaminophen/Hydrocodone Bitart 2 each 02/01/19 23:33 [place] 5/325 PO Q6H PRN Pain, Moderate (4-6) Hydromorphone HCl 0.5 mg 02/02/19 09:04 02/04/19 00:25 Dilaudid IV 0.5 mg Q3H PRN Administration Pain , Severe (7-10) Dextrose/Sodium Chloride 1,000 mls @ 75 mls/hr 02/02/19 14:00 02/04/19 04:57 D5/0.45ns IV 75 mls/hr DIRECT AYO Administration Metoprolol Tartrate 2.5 mg 02/02/19 16:33 02/03/19 05:14 Lopressor IV 2.5 mg Q6HR PRN Administration tachycardia Ondansetron HCl 4 mg 02/01/19 23:33 Zofran IV Q8H PRN Nausea And Vomiting Sodium Chloride 10 ml 02/02/19 10:00 02/04/19 09:20 Sodium Chloride Flush Syringe 10 Ml IV 10 ml BID AYO Administration Sodium Chloride 10 ml 02/01/19 23:33 Sodium Chloride Flush Syringe 10 Ml IV PRN PRN LINE FLUSH Nutrition/Malnutrition Assess - Dietary Evaluation Nutrition/Malnutrition Findings: Nutrition Notes Start: 02/02/19 15:14 Freq: Status: Active Protocol: Document 02/03/19 17:55 RM (Rec: 02/03/19 18:27 RM [id number]) Nutrition Notes Initial or Follow up Assessment Current Diagnosis Hypertension,Respiratory Failure Other Pertinent Diagnosis Metastatic breast CA, CP Current Diet Regular Labs/Tests Reviewed Pertinent Medications Reviewed Height 5 ft 6 in Weight 69.3 kg Usual Body Weight 81.82 kg [place] Body Weight (kg) 59.09 BMI 24.6 Weight change and time frame 15.3% wt loss X 1 year Subjective/Other Information Pt and pt daughter in room at time of visit. Pt on BiPAP at time of visit. Pt daughter helped answer questions. Pt has been drinking 3 Ensure daily w/fruit METAL MOULDER'S ASSISTANT. Pt has also drunk an Ensure since admission. Nurse told bid writer that pt does not tolerate being off BiPAP well for even brief periods of time and oxygen levels drop. Pt daughter stated pt UBW was 180 lbs 1 year ago. Noted slight temporal wasting. Pt daughter requested that pt be started on TPN. Insurance Customer Service Specialist explained that TPN is not appropriate yet d/t pt being able to tolerate PO intake recently METAL MOULDER'S ASSISTANT. Insurance Customer Service Specialist recommended to wait to see if breathing improves first. Burn Absent Trauma Absent #1 Nutrition Diagnosis Malnutrition Etiology metastatic breast CA As Evidenced by Signs and Symptoms pt METAL MOULDER'S ASSISTANT only consuming 3 Ensure Enlive w/fruit daily, slight temporal wasting Is patient on ventilator? No Is Patient Ambulatory and/or Out of Bed No REE-([place]-St. Jeor-confined to bed) 1546.536 [facility] Additional Notes Protein Needs: 83-104g (1.2-1. 5g/kg) Fluid Needs: 1 ml/kcal Nutrition Intervention Change Diet Order: Diet advancement/Improvement of SOB Goal #1 Diet advancement Follow-Up By: 02/06/19 Additional Comments Follow for diet advancement/ improvement of SOB
[2019-02-05] MEDS: LOPRESSOR IV PRN (00:35)
[2019-02-05 06:04] LABS: Hematocrit 24.8 % (30.3-42.9); Hemoglobin 8.3 gm/dl (10.1-14.3); Mean Corpuscular HGB Conc 34 % (30-34); Mean Corpuscular Volume 94 fl (79-97); Platelet Count 134 K/mm3 (140-440); Red Blood Count 2.65 M/mm3 (3.65-5.03)
[2019-02-05 06:10] LABS: Red Cell Distribution Width 24.3 % (13.2-15.2)
[2019-02-05 06:24] LABS: BUN/Creatinine Ratio 33; Blood Urea Nitrogen 10 mg/dL (7-17); Calcium 8.8 mg/dL (8.4-10.2); Hemolysis Index 1
[2019-02-05 09:22] LABS: Basophils % (Manual) 0 % (0.0-1.8); Total Cells Counted 100
[2019-02-05 09:23] LABS: Hypochromasia Few; Target Cells 1+
[2019-02-05 09:24] LABS: Giant Platelets Few; Platelet Estimate Consistent w Auto
[2019-02-05] MEDS: D5/0.45NS 1,000 ML IV SCH ×2 (12:02→18:56)
[2019-02-05] MEDS: SODIUM CHLORIDE FLUSH SYRINGE 10 ML IV SCH ×2 (15:13→21:37)
--- NOTE | 2019-02-05 16:29 | Progress Note ---
Assessment and Plan Assessment and plan: 58-year-old [place] female with medical history significant for stage IV breast cancer, metastasis to the bone and to the spinal cord with spinal compression is interested to the emergency department with complaints of shortness of breath. CTA was done in the emergency department and no PE was shown. Patient was recently discharged from [facility] to hospice care. I get the record from [facility] and she was admitted with the same problems. patient is full code and family wants everything to be done and don't want hospice care instead they want HH at discharge Acute on chronic hypoxic respiratory failure - Patient was on home oxygen - Continue BiPAP - Pulmonary consult appreciated - If patient deteriorates will intubate her Persistent tachycardia - Continue on Lopressor IV when necessary Stage IV breast cancer, with metastatsis to the bone and spine, paraplegia - Supportive care - Was treated with palliative intent therapy at [facility] - patient is on D5 half normal saline - Patient refused NG tube feeding - We can now take off the BiPAP because patient is desaturating CODE STATUS full Disposition; continue inpatient care. History Interval history: Patient was seen and evaluated this morning, patient is in no respiratory distress. She is on BiPAP. Hospitalist Physical - Physical exam Narrative exam: patient is in respiratory distress. The patient appeared well nourished and normally developed. Vital signs as documented. Head exam is unremarkable. No scleral icterus . Neck is without jugular venous distension, thyromegaly, or carotid bruits. Lungs are clear to auscultation. Cardiac exam reveals tachycardia. Abdominal exam reveals normal bowel sounds, no masses, no organomegaly and no aortic enlargement. Extremities are nonedematous and both femoral and pedal pulses are normal. PARKING ATTENDANT:paraplegic. Hospitalist Physical - Constitutional Vitals: Temp Pulse Resp BP Pulse Ox 98.2 F 111 H 22 123/72 96 02/05/19 12:54 02/05/19 12:54 02/05/19 12:54 02/05/19 12:54 02/05/19 12:54 Results - Labs CBC & Chem 7: 02/05/19 04:35 02/05/19 04:35 Labs: Laboratory Last Values WBC 9.6 K/mm3 (4.5-11.0) 02/05/19 04:35 RBC 2.65 M/mm3 (3.65-5.03) L 02/05/19 04:35 Hgb 8.3 gm/dl (10.1-14.3) L 02/05/19 04:35 Hct 24.8 % (30.3-42.9) L 02/05/19 04:35 MCV 94 fl (79-97) 02/05/19 04:35 MCH 32 pg (28-32) 02/05/19 04:35 MCHC 34 % (30-34) 02/05/19 04:35 RDW 24.3 % (13.2-15.2) H 02/05/19 04:35 Plt Count 134 K/mm3 (140-440) L 02/05/19 04:35 Lymph % (Auto) Harbor Department Manager 02/03/19 04:43 [place] % (Auto) Harbor Department Manager 02/03/19 04:43 Eos % (Auto) Harbor Department Manager 02/03/19 04:43 Baso % (Auto) Harbor Department Manager 02/03/19 04:43 Lymph # Harbor Department Manager 02/03/19 04:43 [place] # Harbor Department Manager 02/03/19 04:43 Eos # Harbor Department Manager 02/03/19 04:43 Baso # Harbor Department Manager 02/03/19 04:43 Add Manual Diff Complete 02/05/19 04:35 Total Counted 100 02/05/19 04:35 Seg Neutrophils % Harbor Department Manager 02/03/19 04:43 Seg Neuts % (Manual) 83.0 % (40.0-70.0) H 02/05/19 04:35 0 % 02/05/19 04:35 9.0 % (13.4-35.0) L 02/05/19 04:35 Reactive Lymphs % (Man) 1.0 % 02/05/19 04:35 5.0 % (0.0-7.3) 02/05/19 04:35 1.0 % (0.0-4.3) 02/05/19 04:35 0 % (0.0-1.8) 02/05/19 04:35 1.0 % 02/05/19 04:35 0 % 02/05/19 04:35 0 % 02/05/19 04:35 0 % 02/05/19 04:35 Nucleated RBC % 29.0 % (0.0-0.9) H 02/05/19 04:35 Seg Neutrophils # Harbor Department Manager 02/03/19 04:43 Seg Neutrophils # Man 8.0 K/mm3 (1.8-7.7) H 02/05/19 04:35 Band Neutrophils # 0.0 K/mm3 02/05/19 04:35 0.9 K/mm3 (1.2-5.4) L 02/05/19 04:35 Abs React Lymphs (Man) 0.1 K/mm3 02/05/19 04:35 0.5 K/mm3 (0.0-0.8) 02/05/19 04:35 0.1 K/mm3 (0.0-0.4) 02/05/19 04:35 0.0 K/mm3 (0.0-0.1) 02/05/19 04:35 0.1 K/mm3 02/05/19 04:35 0.0 K/mm3 02/05/19 04:35 0.0 K/mm3 02/05/19 04:35 Blast Cells # 0.0 K/mm3 02/05/19 04:35 WBC Morphology Not Reportable 02/05/19 04:35 Hypersegmented Neuts Not Reportable 02/05/19 04:35 Hyposegmented Neuts Not Reportable 02/05/19 04:35 Hypogranular Neuts Not Reportable 02/05/19 04:35 Not Reportable 02/05/19 04:35 Not Reportable 02/05/19 04:35 Not Reportable 02/05/19 04:35 Not Reportable 02/05/19 04:35 Not Reportable 02/05/19 04:35 Not Reportable 02/05/19 04:35 Consistent w auto 02/05/19 04:35 Not Reportable 02/05/19 04:35 Plt Clumps, EDTA Not Reportable 02/05/19 04:35 Not Reportable 02/05/19 04:35 Few 02/05/19 04:35 Not Reportable 02/05/19 04:35 Plt Morphology Comment Not Reportable 02/05/19 04:35 RBC Morphology Not Reportable 02/05/19 04:35 Dimorphic RBCs Not Reportable 02/05/19 04:35 Few 02/05/19 04:35 Few 02/05/19 04:35 Not Reportable 02/05/19 04:35 Not Reportable 02/05/19 04:35 Not Reportable 02/05/19 04:35 Not Reportable 02/05/19 04:35 Not Reportable 02/05/19 04:35 Not Reportable 02/05/19 04:35 Not Reportable 02/05/19 04:35 1+ 02/05/19 04:35 Not Reportable 02/05/19 04:35 Not Reportable 02/05/19 04:35 Not Reportable 02/05/19 04:35 Not Reportable 02/05/19 04:35 Not Reportable 02/05/19 04:35 Not Reportable 02/05/19 04:35 Not Reportable 02/05/19 04:35 Not Reportable 02/05/19 04:35 Not Reportable 02/05/19 04:35 Acanthocytes (Spur) Not Reportable 02/05/19 04:35 Rouleaux Not Reportable 02/05/19 04:35 Not Reportable 02/05/19 04:35 Not Reportable 02/05/19 04:35 Not Reportable 02/05/19 04:35 Not Reportable 02/05/19 04:35 Hem Pathologist Commnt No 02/05/19 04:35 PT 15.1 Sec. (12.2-14.9) H 02/01/19 18:00 INR 1.22 (0.87-1.13) H 02/01/19 18:00 APTT 27.2 Sec. (24.2-36.6) 02/01/19 18:00 6342.18 ng/mlDDU (0-234) H 02/01/19 18:00 POC ABG pH 7.449 (7.35-7.45) 02/02/19 09:49 POC ABG pCO2 39.9 (35-45) 02/02/19 09:49 POC ABG pO2 72 (80-105) L 02/02/19 09:49 POC ABG HCO3 27.6 (22-26 mml/L) 02/02/19 09:49 POC ABG Total CO2 29 (23-27mmol/L) 02/02/19 09:49 POC ABG O2 Sat 95 02/02/19 09:49 POC ABG Base Excess 4 ((-2) - (+3)mmol/L) 02/02/19 09:49 35 % 02/02/19 09:49 Sodium 139 mmol/L (137-145) 02/05/19 04:35 Potassium 3.6 mmol/L (3.6-5.0) 02/05/19 04:35 Chloride 102.2 mmol/L (98-107) 02/05/19 04:35 Carbon Dioxide 26 mmol/L (22-30) 02/05/19 04:35 14 mmol/L 02/05/19 04:35 BUN 10 mg/dL (7-17) 02/05/19 04:35 0.3 mg/dL (0.7-1.2) L 02/05/19 04:35 Estimated GFR > 60 ml/min 02/05/19 04:35 33 % 02/05/19 04:35 Glucose 93 mg/dL (65-100) 02/05/19 04:35 Calcium 8.8 mg/dL (8.4-10.2) 02/05/19 04:35 0.80 mg/dL (0.1-1.2) 02/01/19 18:00 AST 85 units/L (5-40) H 02/01/19 18:00 ALT 23 units/L (7-56) 02/01/19 18:00 99 units/L (35-129) 02/01/19 18:00 132 units/L (30-135) 02/01/19 18:00 CK-MB (CK-2) 3.8 ng/mL (0.0-4.0) 02/01/19 18:00 CK-MB (CK-2) Rel Index 2.8 (0-4) 02/01/19 18:00 < 0.010 ng/mL (0.00-0.029) 02/01/19 18:00 NT-Pro-B Natriuret Pep 1304 pg/mL (0-900) H 02/01/19 18:00 6.6 g/dL (6.3-8.2) 02/01/19 18:00 3.2 g/dL (3.9-5) L 02/01/19 18:00 0.9 % 02/01/19 18:00 Active Medications - Current Medications Current Medications: Generic Name Dose Route Start Last Admin Trade Name Freq PRN Reason Stop Dose Admin Acetaminophen 650 mg 02/01/19 23:33 Tylenol PO Q4H PRN Pain MILD(1-3)/Fever >100.5/PEREZ Acetaminophen/Hydrocodone Bitart 2 each 02/01/19 23:33 [place] 5/325 PO Q6H PRN Pain, Moderate (4-6) Hydromorphone HCl 0.5 mg 02/02/19 09:04 02/04/19 19:58 Dilaudid IV 0.5 mg Q3H PRN Administration Pain , Severe (7-10) Dextrose/Sodium Chloride 1,000 mls @ 75 mls/hr 02/02/19 14:00 02/05/19 12:02 D5/0.45ns IV 75 mls/hr DIRECT AYO Administration Metoprolol Tartrate 2.5 mg 02/02/19 16:33 02/05/19 00:35 Lopressor IV 2.5 mg Q6HR PRN Administration tachycardia Ondansetron HCl 4 mg 02/01/19 23:33 Zofran IV Q8H PRN Nausea And Vomiting Sodium Chloride 10 ml 02/02/19 10:00 02/05/19 15:13 Sodium Chloride Flush Syringe 10 Ml IV 10 ml BID AYO Administration Sodium Chloride 10 ml 02/01/19 23:33 Sodium Chloride Flush Syringe 10 Ml IV PRN PRN LINE FLUSH Nutrition/Malnutrition Assess - Dietary Evaluation Nutrition/Malnutrition Findings: Nutrition Notes Start: 02/02/19 15:14 Freq: Status: Active Protocol: Document 02/03/19 17:55 RM (Rec: 02/03/19 18:27 RM [id number]) Nutrition Notes Initial or Follow up Assessment Current Diagnosis Hypertension,Respiratory Failure Other Pertinent Diagnosis Metastatic breast CA, CP Current Diet Regular Labs/Tests Reviewed Pertinent Medications Reviewed Height 5 ft 6 in Weight 69.3 kg Usual Body Weight 81.82 kg [place] Body Weight (kg) 59.09 BMI 24.6 Weight change and time frame 15.3% wt loss X 1 year Subjective/Other Information Pt and pt daughter in room at time of visit. Pt on BiPAP at time of visit. Pt daughter helped answer questions. Pt has been drinking 3 Ensure daily w/fruit SANDWICH COUNTER ATTENDANT. Pt has also drunk an Ensure since admission. Nurse told curriculum writer that pt does not tolerate being off BiPAP well for even brief periods of time and oxygen levels drop. Pt daughter stated pt UBW was 180 lbs 1 year ago. Noted slight temporal wasting. Pt daughter requested that pt be started on TPN. Production Machine Shop Supervisor explained that TPN is not appropriate yet d/t pt being able to tolerate PO intake recently SANDWICH COUNTER ATTENDANT. Production Machine Shop Supervisor recommended to wait to see if breathing improves first. Burn Absent Trauma Absent #1 Nutrition Diagnosis Malnutrition Etiology metastatic breast CA As Evidenced by Signs and Symptoms pt SANDWICH COUNTER ATTENDANT only consuming 3 Ensure Enlive w/fruit daily, slight temporal wasting Is patient on ventilator? No Is Patient Ambulatory and/or Out of Bed No REE-([place]-[facility]. Jeor-confined to bed) 1546.536 [facility] Additional Notes Protein Needs: 83-104g (1.2-1. 5g/kg) Fluid Needs: 1 ml/kcal Nutrition Intervention Change Diet Order: Diet advancement/Improvement of SOB Goal #1 Diet advancement Follow-Up By: 02/06/19 Additional Comments Follow for diet advancement/ improvement of SOB
[2019-02-06] MEDS: D5/0.45NS 1,000 ML IV SCH ×2 (08:34→22:12)
[2019-02-06] MEDS: DILAUDID IV PRN (08:44)
[2019-02-06] MEDS: SODIUM CHLORIDE FLUSH SYRINGE 10 ML IV SCH ×2 (13:36→22:14)
--- NOTE | 2019-02-06 14:59 | Progress Note ---
Assessment and Plan Assessment and plan: 58-year-old Afghan female with medical history significant for stage IV breast cancer, metastasis to the bone and to the spinal cord with spinal compression is interested to the emergency department with complaints of shortness of breath. CTA was done in the emergency department and no PE was shown. Patient was recently discharged from [facility] to hospice care. I get the record from [facility] and she was admitted with the same problems. patient is full code and family wants everything to be done and don't want hospice care instead they want HH at discharge Acute on chronic hypoxic respiratory failure - Patient was on home oxygen - Continue BiPAP - Pulmonary consult appreciated - If patient deteriorates will intubate her Persistent tachycardia - Continue on Lopressor IV when necessary Stage IV breast cancer, with metastatsis to the bone and spine, paraplegia - Supportive care - Was treated with palliative intent therapy at [facility] - patient is on D5 half normal saline - Patient refused NG tube feeding - We can not take off the BiPAP because patient is desaturating CODE STATUS full Disposition; continue inpatient care. Poor prognosis, dw family, recommend that she return to hospice History Interval history: Patient was seen and evaluated this morning, patient is in no respiratory distress. She is on BiPAP. Hospitalist Physical - Physical exam Narrative exam: patient is in respiratory distress. The patient appeared well nourished and normally developed. Vital signs as documented. Head exam is unremarkable. No scleral icterus . Neck is without jugular venous distension, thyromegaly, or carotid bruits. Lungs are clear to auscultation. Cardiac exam reveals tachycardia. Abdominal exam reveals normal bowel sounds, no masses, no organomegaly and no aortic enlargement. Extremities are nonedematous and both femoral and pedal pulses are normal. 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 Hospitalist Physical - Constitutional Vitals: Temp Pulse Resp BP Pulse Ox 97.9 F 113 H 19 129/84 99 02/06/19 11:57 02/06/19 12:00 02/06/19 12:00 02/06/19 11:57 02/06/19 12:00 Results - Labs CBC & Chem 7: 02/05/19 04:35 02/05/19 04:35 Labs: Laboratory Last Values WBC 9.6 K/mm3 (4.5-11.0) 02/05/19 04:35 RBC 2.65 M/mm3 (3.65-5.03) L 02/05/19 04:35 Hgb 8.3 gm/dl (10.1-14.3) L 02/05/19 04:35 Hct 24.8 % (30.3-42.9) L 02/05/19 04:35 MCV 94 fl (79-97) 02/05/19 04:35 MCH 32 pg (28-32) 02/05/19 04:35 MCHC 34 % (30-34) 02/05/19 04:35 RDW 24.3 % (13.2-15.2) H 02/05/19 04:35 Plt Count 134 K/mm3 (140-440) L 02/05/19 04:35 Lymph % (Auto) Windows Server Support Technician 02/03/19 04:43 [place] % (Auto) Windows Server Support Technician 02/03/19 04:43 Eos % (Auto) Windows Server Support Technician 02/03/19 04:43 Baso % (Auto) Windows Server Support Technician 02/03/19 04:43 Lymph # Windows Server Support Technician 02/03/19 04:43 [place] # Windows Server Support Technician 02/03/19 04:43 Eos # Windows Server Support Technician 02/03/19 04:43 Baso # Windows Server Support Technician 02/03/19 04:43 Add Manual Diff Complete 02/05/19 04:35 Total Counted 100 02/05/19 04:35 Seg Neutrophils % Windows Server Support Technician 02/03/19 04:43 Seg Neuts % (Manual) 83.0 % (40.0-70.0) H 02/05/19 04:35 0 % 02/05/19 04:35 9.0 % (13.4-35.0) L 02/05/19 04:35 Reactive Lymphs % (Man) 1.0 % 02/05/19 04:35 5.0 % (0.0-7.3) 02/05/19 04:35 1.0 % (0.0-4.3) 02/05/19 04:35 0 % (0.0-1.8) 02/05/19 04:35 1.0 % 02/05/19 04:35 0 % 02/05/19 04:35 0 % 02/05/19 04:35 0 % 02/05/19 04:35 Nucleated RBC % 29.0 % (0.0-0.9) H 02/05/19 04:35 Seg Neutrophils # Windows Server Support Technician 02/03/19 04:43 Seg Neutrophils # Man 8.0 K/mm3 (1.8-7.7) H 02/05/19 04:35 Band Neutrophils # 0.0 K/mm3 02/05/19 04:35 0.9 K/mm3 (1.2-5.4) L 02/05/19 04:35 Abs React Lymphs (Man) 0.1 K/mm3 02/05/19 04:35 0.5 K/mm3 (0.0-0.8) 02/05/19 04:35 0.1 K/mm3 (0.0-0.4) 02/05/19 04:35 0.0 K/mm3 (0.0-0.1) 02/05/19 04:35 0.1 K/mm3 02/05/19 04:35 0.0 K/mm3 02/05/19 04:35 0.0 K/mm3 02/05/19 04:35 Blast Cells # 0.0 K/mm3 02/05/19 04:35 WBC Morphology Not Reportable 02/05/19 04:35 Hypersegmented Neuts Not Reportable 02/05/19 04:35 Hyposegmented Neuts Not Reportable 02/05/19 04:35 Hypogranular Neuts Not Reportable 02/05/19 04:35 Not Reportable 02/05/19 04:35 Not Reportable 02/05/19 04:35 Not Reportable 02/05/19 04:35 Not Reportable 02/05/19 04:35 Not Reportable 02/05/19 04:35 Not Reportable 02/05/19 04:35 Consistent w auto 02/05/19 04:35 Not Reportable 02/05/19 04:35 Plt Clumps, EDTA Not Reportable 02/05/19 04:35 Not Reportable 02/05/19 04:35 Few 02/05/19 04:35 Not Reportable 02/05/19 04:35 Plt Morphology Comment Not Reportable 02/05/19 04:35 RBC Morphology Not Reportable 02/05/19 04:35 Dimorphic RBCs Not Reportable 02/05/19 04:35 Few 02/05/19 04:35 Few 02/05/19 04:35 Not Reportable 02/05/19 04:35 Not Reportable 02/05/19 04:35 Not Reportable 02/05/19 04:35 Not Reportable 02/05/19 04:35 Not Reportable 02/05/19 04:35 Not Reportable 02/05/19 04:35 Not Reportable 02/05/19 04:35 1+ 02/05/19 04:35 Not Reportable 02/05/19 04:35 Not Reportable 02/05/19 04:35 Not Reportable 02/05/19 04:35 Not Reportable 02/05/19 04:35 Not Reportable 02/05/19 04:35 Not Reportable 02/05/19 04:35 Not Reportable 02/05/19 04:35 Not Reportable 02/05/19 04:35 Not Reportable 02/05/19 04:35 Acanthocytes (Spur) Not Reportable 02/05/19 04:35 Rouleaux Not Reportable 02/05/19 04:35 Not Reportable 02/05/19 04:35 Not Reportable 02/05/19 04:35 Not Reportable 02/05/19 04:35 Not Reportable 02/05/19 04:35 Hem Pathologist Commnt No 02/05/19 04:35 PT 15.1 Sec. (12.2-14.9) H 02/01/19 18:00 INR 1.22 (0.87-1.13) H 02/01/19 18:00 APTT 27.2 Sec. (24.2-36.6) 02/01/19 18:00 6342.18 ng/mlDDU (0-234) H 02/01/19 18:00 POC ABG pH 7.449 (7.35-7.45) 02/02/19 09:49 POC ABG pCO2 39.9 (35-45) 02/02/19 09:49 POC ABG pO2 72 (80-105) L 02/02/19 09:49 POC ABG HCO3 27.6 (22-26 mml/L) 02/02/19 09:49 POC ABG Total CO2 29 (23-27mmol/L) 02/02/19 09:49 POC ABG O2 Sat 95 02/02/19 09:49 POC ABG Base Excess 4 ((-2) - (+3)mmol/L) 02/02/19 09:49 35 % 02/02/19 09:49 Sodium 139 mmol/L (137-145) 02/05/19 04:35 Potassium 3.6 mmol/L (3.6-5.0) 02/05/19 04:35 Chloride 102.2 mmol/L (98-107) 02/05/19 04:35 Carbon Dioxide 26 mmol/L (22-30) 02/05/19 04:35 14 mmol/L 02/05/19 04:35 BUN 10 mg/dL (7-17) 02/05/19 04:35 0.3 mg/dL (0.7-1.2) L 02/05/19 04:35 Estimated GFR > 60 ml/min 02/05/19 04:35 33 % 02/05/19 04:35 Glucose 93 mg/dL (65-100) 02/05/19 04:35 POC Glucose 104 (70-105) 02/06/19 12:03 Calcium 8.8 mg/dL (8.4-10.2) 02/05/19 04:35 0.80 mg/dL (0.1-1.2) 02/01/19 18:00 AST 85 units/L (5-40) H 02/01/19 18:00 ALT 23 units/L (7-56) 02/01/19 18:00 99 units/L (35-129) 02/01/19 18:00 132 units/L (30-135) 02/01/19 18:00 CK-MB (CK-2) 3.8 ng/mL (0.0-4.0) 02/01/19 18:00 CK-MB (CK-2) Rel Index 2.8 (0-4) 02/01/19 18:00 < 0.010 ng/mL (0.00-0.029) 02/01/19 18:00 NT-Pro-B Natriuret Pep 1304 pg/mL (0-900) H 02/01/19 18:00 6.6 g/dL (6.3-8.2) 02/01/19 18:00 3.2 g/dL (3.9-5) L 02/01/19 18:00 0.9 % 02/01/19 18:00 Active Medications - Current Medications Current Medications: Generic Name Dose Route Start Last Admin Trade Name Freq PRN Reason Stop Dose Admin Acetaminophen 650 mg 02/01/19 23:33 Tylenol PO Q4H PRN Pain MILD(1-3)/Fever >100.5/PEREZ Acetaminophen/Hydrocodone Bitart 2 each 02/01/19 23:33 [place] 5/325 PO Q6H PRN Pain, Moderate (4-6) Hydromorphone HCl 0.5 mg 02/02/19 09:04 02/06/19 08:44 Dilaudid IV 0.5 mg Q3H PRN Administration Pain , Severe (7-10) Dextrose/Sodium Chloride 1,000 mls @ 75 mls/hr 02/02/19 14:00 02/06/19 08:34 D5/0.45ns IV 75 mls/hr DIRECT AYO Administration Metoprolol Tartrate 2.5 mg 02/02/19 16:33 02/05/19 00:35 Lopressor IV 2.5 mg Q6HR PRN Administration tachycardia Ondansetron HCl 4 mg 02/01/19 23:33 Zofran IV Q8H PRN Nausea And Vomiting Sodium Chloride 10 ml 02/02/19 10:00 02/06/19 13:36 Sodium Chloride Flush Syringe 10 Ml IV 10 ml BID AYO Administration Sodium Chloride 10 ml 02/01/19 23:33 Sodium Chloride Flush Syringe 10 Ml IV PRN PRN LINE FLUSH Nutrition/Malnutrition Assess - Dietary Evaluation Nutrition/Malnutrition Findings: Nutrition Notes Start: 02/02/19 15:14 Freq: Status: Active Protocol: Document 02/06/19 13:52 NIECY (Rec: 02/06/19 13:57 NIECY [email or web address]) Nutrition Notes Initial or Follow up Reassessment Other Pertinent Diagnosis Acute on chronic resp failure, metastatic breast CA Current Diet Regular Labs/Tests Reviewed Pertinent Medications Reviewed Height 5 ft 6 in Weight 72.4 kg [place] Body Weight (kg) 59.09 BMI 25.7 Subjective/Other Information Pt BiPap at time of visit this am. Pt agrees that it is easier to drink than chew food at this time. Her son has been feeding her smoothies made from whole foods; says pt is on a "holistic" diet and cannot eat the foods served in [facility]. Burn Absent Trauma Absent #1 Nutrition Diagnosis Malnutrition Diagnosis Progress(for reassessment Continues documentation) Is patient on ventilator? No Is Patient Ambulatory and/or Out of Bed No REE-([facility]-confined to bed) [phone] Calculation Used for Recommendations [facility] Additional Notes Pro needs 1-1.2g/k-87g/ day Fluid needs 1ml/kcal Nutrition Intervention Change Diet Order: Continue current diet order Goal #1 PO intakes to meet nutrient needs as best possible Follow-Up By: 02/09/19 Additional Comments F/U: intakes
[2019-02-07] MEDS: DILAUDID IV PRN ×2 (08:53→18:50)
[2019-02-07] MEDS: SODIUM CHLORIDE FLUSH SYRINGE 10 ML IV SCH ×2 (09:05→23:32)
[2019-02-07] MEDS: D5/0.45NS 1,000 ML IV SCH ×2 (10:23→23:33)
--- NOTE | 2019-02-07 13:44 | Progress Note ---
Assessment and Plan Assessment and plan: 58-year-old Cypriot female with medical history significant for stage IV breast cancer, metastasis to the bone and to the spinal cord with spinal compression is interested to the emergency department with complaints of shortness of breath. CTA was done in the emergency department and no PE was shown. Patient was recently discharged from [facility] to hospice care. I get the record from [facility] and she was admitted with the same problems. patient is full code and family wants everything to be done and don't want hospice care instead they want HH at discharge Acute on chronic hypoxic respiratory failure - Patient was on home oxygen - Continue BiPAP - Pulmonary consult appreciated - If patient deteriorates will intubate her Persistent tachycardia - Continue on Lopressor IV when necessary Stage IV breast cancer, with metastatsis to the bone and spine, paraplegia - Supportive care - Was treated with palliative intent therapy at [facility] - patient is on D5 half normal saline - Patient refused NG tube feeding - We can not take off the BiPAP because patient is desaturating CODE STATUS full Disposition; continue inpatient care. Poor prognosis, dw family, recommend that she return to hospice History Interval history: Patient was seen and evaluated this morning, patient is in no respiratory distress. She is on BiPAP. Hospitalist Physical - Physical exam Narrative exam: patient is in respiratory distress. The patient appeared well nourished and normally developed. Vital signs as documented. Head exam is unremarkable. No scleral icterus . Neck is without jugular venous distension, thyromegaly, or carotid bruits. Lungs are clear to auscultation. Cardiac exam reveals tachycardia. Abdominal exam reveals normal bowel sounds, no masses, no organomegaly and no aortic enlargement. Extremities are nonedematous and both femoral and pedal pulses are normal. 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 Hospitalist Physical - Constitutional Vitals: Temp Pulse Resp BP Pulse Ox 98.9 F 110 H 20 106/58 98 02/07/19 11:46 02/07/19 12:00 02/07/19 12:00 02/07/19 11:46 02/07/19 12:00 Results - Labs CBC & Chem 7: 02/05/19 04:35 02/05/19 04:35 Labs: Laboratory Last Values WBC 9.6 K/mm3 (4.5-11.0) 02/05/19 04:35 RBC 2.65 M/mm3 (3.65-5.03) L 02/05/19 04:35 Hgb 8.3 gm/dl (10.1-14.3) L 02/05/19 04:35 Hct 24.8 % (30.3-42.9) L 02/05/19 04:35 MCV 94 fl (79-97) 02/05/19 04:35 MCH 32 pg (28-32) 02/05/19 04:35 MCHC 34 % (30-34) 02/05/19 04:35 RDW 24.3 % (13.2-15.2) H 02/05/19 04:35 Plt Count 134 K/mm3 (140-440) L 02/05/19 04:35 Lymph % (Auto) Top Printing Press Operator 02/03/19 04:43 Door % (Auto) Top Printing Press Operator 02/03/19 04:43 Eos % (Auto) Top Printing Press Operator 02/03/19 04:43 Baso % (Auto) Top Printing Press Operator 02/03/19 04:43 Lymph # [employer] Printing Press Operator 02/03/19 04:43 Door # Top Printing Press Operator 02/03/19 04:43 Eos # Top Printing Press Operator 02/03/19 04:43 Baso # Top Printing Press Operator 02/03/19 04:43 Add Manual Diff Complete 02/05/19 04:35 Total Counted 100 02/05/19 04:35 Seg Neutrophils % [employer] Printing Press Operator 02/03/19 04:43 Seg Neuts % (Manual) 83.0 % (40.0-70.0) H 02/05/19 04:35 0 % 02/05/19 04:35 9.0 % (13.4-35.0) L 02/05/19 04:35 Reactive Lymphs % (Man) 1.0 % 02/05/19 04:35 5.0 % (0.0-7.3) 02/05/19 04:35 1.0 % (0.0-4.3) 02/05/19 04:35 0 % (0.0-1.8) 02/05/19 04:35 1.0 % 02/05/19 04:35 0 % 02/05/19 04:35 0 % 02/05/19 04:35 0 % 02/05/19 04:35 Nucleated RBC % 29.0 % (0.0-0.9) H 02/05/19 04:35 Seg Neutrophils # Top Printing Press Operator 02/03/19 04:43 Seg Neutrophils # Man 8.0 K/mm3 (1.8-7.7) H 02/05/19 04:35 Band Neutrophils # 0.0 K/mm3 02/05/19 04:35 0.9 K/mm3 (1.2-5.4) L 02/05/19 04:35 Abs React Lymphs (Man) 0.1 K/mm3 02/05/19 04:35 0.5 K/mm3 (0.0-0.8) 02/05/19 04:35 0.1 K/mm3 (0.0-0.4) 02/05/19 04:35 0.0 K/mm3 (0.0-0.1) 02/05/19 04:35 0.1 K/mm3 02/05/19 04:35 0.0 K/mm3 02/05/19 04:35 0.0 K/mm3 02/05/19 04:35 Blast Cells # 0.0 K/mm3 02/05/19 04:35 WBC Morphology Not Reportable 02/05/19 04:35 Hypersegmented Neuts Not Reportable 02/05/19 04:35 Hyposegmented Neuts Not Reportable 02/05/19 04:35 Hypogranular Neuts Not Reportable 02/05/19 04:35 Not Reportable 02/05/19 04:35 Not Reportable 02/05/19 04:35 Not Reportable 02/05/19 04:35 Not Reportable 02/05/19 04:35 Not Reportable 02/05/19 04:35 Not Reportable 02/05/19 04:35 Consistent w auto 02/05/19 04:35 Not Reportable 02/05/19 04:35 Plt Clumps, EDTA Not Reportable 02/05/19 04:35 Not Reportable 02/05/19 04:35 Few 02/05/19 04:35 Not Reportable 02/05/19 04:35 Plt Morphology Comment Not Reportable 02/05/19 04:35 RBC Morphology Not Reportable 02/05/19 04:35 Dimorphic RBCs Not Reportable 02/05/19 04:35 Few 02/05/19 04:35 Few 02/05/19 04:35 Not Reportable 02/05/19 04:35 Not Reportable 02/05/19 04:35 Not Reportable 02/05/19 04:35 Not Reportable 02/05/19 04:35 Not Reportable 02/05/19 04:35 Not Reportable 02/05/19 04:35 Not Reportable 02/05/19 04:35 1+ 02/05/19 04:35 Not Reportable 02/05/19 04:35 Not Reportable 02/05/19 04:35 Not Reportable 02/05/19 04:35 Not Reportable 02/05/19 04:35 Not Reportable 02/05/19 04:35 Not Reportable 02/05/19 04:35 Not Reportable 02/05/19 04:35 Not Reportable 02/05/19 04:35 Not Reportable 02/05/19 04:35 Acanthocytes (Spur) Not Reportable 02/05/19 04:35 Rouleaux Not Reportable 02/05/19 04:35 Not Reportable 02/05/19 04:35 Not Reportable 02/05/19 04:35 Not Reportable 02/05/19 04:35 Not Reportable 02/05/19 04:35 Hem Pathologist Commnt No 02/05/19 04:35 PT 15.1 Sec. (12.2-14.9) H 02/01/19 18:00 INR 1.22 (0.87-1.13) H 02/01/19 18:00 APTT 27.2 Sec. (24.2-36.6) 02/01/19 18:00 6342.18 ng/mlDDU (0-234) H 02/01/19 18:00 POC ABG pH 7.449 (7.35-7.45) 02/02/19 09:49 POC ABG pCO2 39.9 (35-45) 02/02/19 09:49 POC ABG pO2 72 (80-105) L 02/02/19 09:49 POC ABG HCO3 27.6 (22-26 mml/L) 02/02/19 09:49 POC ABG Total CO2 29 (23-27mmol/L) 02/02/19 09:49 POC ABG O2 Sat 95 02/02/19 09:49 POC ABG Base Excess 4 ((-2) - (+3)mmol/L) 02/02/19 09:49 35 % 02/02/19 09:49 Sodium 139 mmol/L (137-145) 02/05/19 04:35 Potassium 3.6 mmol/L (3.6-5.0) 02/05/19 04:35 Chloride 102.2 mmol/L (98-107) 02/05/19 04:35 Carbon Dioxide 26 mmol/L (22-30) 02/05/19 04:35 14 mmol/L 02/05/19 04:35 BUN 10 mg/dL (7-17) 02/05/19 04:35 0.3 mg/dL (0.7-1.2) L 02/05/19 04:35 Estimated GFR > 60 ml/min 02/05/19 04:35 33 % 02/05/19 04:35 Glucose 93 mg/dL (65-100) 02/05/19 04:35 POC Glucose 134 (70-105) H 02/06/19 16:41 Calcium 8.8 mg/dL (8.4-10.2) 02/05/19 04:35 0.80 mg/dL (0.1-1.2) 02/01/19 18:00 AST 85 units/L (5-40) H 02/01/19 18:00 ALT 23 units/L (7-56) 02/01/19 18:00 99 units/L (35-129) 02/01/19 18:00 132 units/L (30-135) 02/01/19 18:00 CK-MB (CK-2) 3.8 ng/mL (0.0-4.0) 02/01/19 18:00 CK-MB (CK-2) Rel Index 2.8 (0-4) 02/01/19 18:00 < 0.010 ng/mL (0.00-0.029) 02/01/19 18:00 NT-Pro-B Natriuret Pep 1304 pg/mL (0-900) H 02/01/19 18:00 6.6 g/dL (6.3-8.2) 02/01/19 18:00 3.2 g/dL (3.9-5) L 02/01/19 18:00 0.9 % 02/01/19 18:00 Active Medications - Current Medications Current Medications: Generic Name Dose Route Start Last Admin Trade Name Freq PRN Reason Stop Dose Admin Acetaminophen 650 mg 02/01/19 23:33 Tylenol PO Q4H PRN Pain MILD(1-3)/Fever >100.5/PEREZ Acetaminophen/Hydrocodone Bitart 2 each 02/01/19 23:33 [place] 5/325 PO Q6H PRN Pain, Moderate (4-6) Hydromorphone HCl 0.5 mg 02/02/19 09:04 02/07/19 08:53 Dilaudid IV 0.5 mg Q3H PRN Administration Pain , Severe (7-10) Dextrose/Sodium Chloride 1,000 mls @ 75 mls/hr 02/02/19 14:00 02/07/19 10:23 D5/0.45ns IV 75 mls/hr DIRECT AYO Administration Metoprolol Tartrate 2.5 mg 02/02/19 16:33 02/05/19 00:35 Lopressor IV 2.5 mg Q6HR PRN Administration tachycardia Ondansetron HCl 4 mg 02/01/19 23:33 Zofran IV Q8H PRN Nausea And Vomiting Sodium Chloride 10 ml 02/02/19 10:00 02/07/19 09:05 Sodium Chloride Flush Syringe 10 Ml IV 10 ml BID AYO Administration Sodium Chloride 10 ml 02/01/19 23:33 Sodium Chloride Flush Syringe 10 Ml IV PRN PRN LINE FLUSH Nutrition/Malnutrition Assess - Dietary Evaluation Nutrition/Malnutrition Findings: Nutrition Notes Start: 02/02/19 15:14 Freq: Status: Active Protocol: Document 02/06/19 13:52 NIECY (Rec: 02/06/19 13:57 NIECY [email or web address]) Nutrition Notes Initial or Follow up Reassessment Other Pertinent Diagnosis Acute on chronic resp failure, metastatic breast CA Current Diet Regular Labs/Tests Reviewed Pertinent Medications Reviewed Height 5 ft 6 in Weight 72.4 kg [place] Body Weight (kg) 59.09 BMI 25.7 Subjective/Other Information Pt BiPap at time of visit this am. Pt agrees that it is easier to drink than chew food at this time. Her son has been feeding her smoothies made from whole foods; says pt is on a "holistic" diet and cannot eat the foods served in [facility]. Burn Absent Trauma Absent #1 Nutrition Diagnosis Malnutrition Diagnosis Progress(for reassessment Continues documentation) Is patient on ventilator? No Is Patient Ambulatory and/or Out of Bed No REE-([facility]-confined to bed) [phone] Calculation Used for Recommendations [facility] Additional Notes Pro needs 1-1.2g/k-87g/ day Fluid needs 1ml/kcal Nutrition Intervention Change Diet Order: Continue current diet order Goal #1 PO intakes to meet nutrient needs as best possible Follow-Up By: 02/09/19 Additional Comments F/U: intakes
[2019-02-08] MEDS: DILAUDID IV PRN ×3 (03:24→21:08)
[2019-02-08 05:20] LABS: Hematocrit 26.7 % (30.3-42.9); Hemoglobin 8.8 gm/dl (10.1-14.3); Mean Corpuscular HGB Conc 33 % (30-34); Mean Corpuscular Volume 93 fl (79-97); Platelet Count 140 K/mm3 (140-440); Red Blood Count 2.86 M/mm3 (3.65-5.03)
[2019-02-08 05:24] LABS: Red Cell Distribution Width 23.5 % (13.2-15.2)
[2019-02-08 05:48] LABS: BUN/Creatinine Ratio 20; Blood Urea Nitrogen 6 mg/dL (7-17); Calcium 8.6 mg/dL (8.4-10.2); Hemolysis Index 7
[2019-02-08 09:20] LABS: Basophils % (Manual) 0 % (0.0-1.8); Eosinophils % (Manual) 0 % (0.0-4.3); Total Cells Counted 100
[2019-02-08 09:21] LABS: Hypochromasia Few; Platelet Estimate Consistent w Auto; Target Cells 1+
[2019-02-08] MEDS: SODIUM CHLORIDE FLUSH SYRINGE 10 ML IV SCH ×2 (11:36→22:39)
[2019-02-08] MEDS: ATIVAN IV PRN ×2 (11:36→17:32)
[2019-02-08] MEDS: D5/0.45NS 1,000 ML IV SCH (13:29)
--- NOTE | 2019-02-08 16:11 | Progress Note ---
Assessment and Plan 58-year-old Ivorian female with medical history significant for stage IV breast cancer, metastasis to the bone and to the spinal cord with spinal compression is interested to the emergency department with complaints of shortness of breath. CTA was done in the emergency department and no PE was shown. Patient was recently discharged from [facility] to hospice care. I get the record from [facility] and she was admitted with the same problems. patient is full code and family wants everything to be done and don't want hospice care instead they want HH at discharge Acute on chronic hypoxic respiratory failure - Patient was on home oxygen - Continue BiPAP - Pulmonary consult appreciated - If patient deteriorates will intubate her Persistent tachycardia - Continue on Lopressor IV when necessary Stage IV breast cancer, with metastatsis to the bone and spine, paraplegia - Supportive care - Was treated with palliative intent therapy at [facility] - patient is on D5 half normal saline - Patient refused NG tube feeding - We can not take off the BiPAP because patient is desaturating CODE STATUS full Disposition; continue inpatient care. Poor prognosis, dw family, recommend that she return to hospice Subjective Date of service: 02/08/19 Principal diagnosis: Acute resp failure Interval history: 58-year-old Ivorian female with medical history significant for stage IV breast cancer, metastasis to the bone and to the spinal cord with spinal compression is interested to the emergency department with complaints of shortness of breath. CTA was done in the emergency department and no PE was shown. Patient was recently discharged from [facility] to hospice care. I get the record from [facility] and she was admitted with the same problems. patient is full code and family wants everything to be done and don't want hospice care instead they want HH at discharge Objective - Exam Narrative Exam: On Bipap - Constitutional Vitals: Vital Signs - 12hr 02/08/19 02/08/19 02/08/19 04:13 04:25 07:55 Temperature 98.2 F Pulse Rate 111 H 118 H Respiratory 24 26 H 20 Rate Blood Pressure 126/85 O2 Sat by Pulse 98 92 Oximetry 02/08/19 02/08/19 02/08/19 08:00 08:39 13:06 Temperature 98.3 F 97.7 F Pulse Rate 110 H 96 H 119 H Respiratory 20 20 20 Rate Blood Pressure 100/64 116/80 O2 Sat by Pulse 92 96 99 Oximetry 02/08/19 02/08/19 13:38 15:31 Temperature Pulse Rate 103 H Respiratory 26 H Rate Blood Pressure O2 Sat by Pulse 97 97 Oximetry General appearance: Present: mild distress, well-nourished - EENT Eyes: PERRL, EOM intact ENT: hearing intact, clear oral mucosa Ears: bilateral: normal - Neck Neck: supple, normal ROM - Respiratory Respiratory effort: normal Respiratory: bilateral: CTA - Breasts Breasts: normal - Cardiovascular Heart rate: 78 Rhythm: regular Heart Sounds: Present: S1 & S2. Absent: gallop, rub Extremities: pulses intact, No edema, normal color, Full ROM - Gastrointestinal General gastrointestinal: Present: soft, non-tender, non-distended, normal bowel sounds - Genitourinary Female genitourinary: normal - Integumentary Integumentary: clear, warm, dry - Musculoskeletal Musculoskeletal: 1, strength equal bilaterally - Neurologic Neurologic: moves all extremities - Psychiatric Psychiatric: memory intact, appropriate mood/affect, intact judgment & insight - Labs CBC & Chem 7: 02/08/19 04:20 02/08/19 04:20 Labs: Abnormal lab results 02/08/19 02/08/19 Range/Units 04:20 04:20 RBC 2.86 L (3.65-5.03) M/mm3 Hgb 8.8 L (10.1-14.3) gm/dl Hct 26.7 L (30.3-42.9) % RDW 23.5 H (13.2-15.2) % Seg Neuts % (Manual) 83.0 H (40.0-70.0) % Lymphocytes % (Manual) 7.0 L (13.4-35.0) % Monocytes % (Manual) 8.0 H (0.0-7.3) % Nucleated RBC % 14.0 H (0.0-0.9) % Seg Neutrophils # Man 8.2 H (1.8-7.7) K/mm3 Lymphocytes # (Manual) 0.7 L (1.2-5.4) K/mm3 Sodium 134 L (137-145) mmol/L BUN 6 L (7-17) mg/dL Creatinine 0.3 L (0.7-1.2) mg/dL Glucose 106 H (65-100) mg/dL
[2019-02-09] MEDS: D5/0.45NS 1,000 ML IV SCH ×2 (02:43→16:31)
[2019-02-09] MEDS: ATIVAN IV PRN ×3 (04:30→17:49)
[2019-02-09] MEDS ORDERED: ATIVAN IV NR (08:27)
[2019-02-09] MEDS: SODIUM CHLORIDE FLUSH SYRINGE 10 ML IV SCH ×2 (09:43→22:20)
[2019-02-09] MEDS: DILAUDID IV PRN ×2 (12:21→17:48)
--- NOTE | 2019-02-09 18:30 | Progress Note ---
Assessment and Plan 58-year-old Bangladeshi female with medical history significant for stage IV breast cancer, metastasis to the bone and to the spinal cord with spinal compression is interested to the emergency department with complaints of shortness of breath. CTA was done in the emergency department and no PE was shown. Patient was recently discharged from [facility] to hospice care. I get the record from [facility] and she was admitted with the same problems. patient is full code and family wants everything to be done and don't want hospice care instead they want HH at discharge Acute on chronic hypoxic respiratory failure - Patient was on home oxygen - Continue BiPAP - Pulmonary consult appreciated - If patient deteriorates will intubate her Persistent tachycardia - Continue on Lopressor IV when necessary Stage IV breast cancer, with metastatsis to the bone and spine, paraplegia - Supportive care - Was treated with palliative intent therapy at [facility] - patient is on D5 half normal saline - Patient refused NG tube feeding - We can not take off the BiPAP because patient is desaturating CODE STATUS full Disposition; continue inpatient care. Poor prognosis, dw family, recommend that she return to hospice Subjective Date of service: 02/09/19 Principal diagnosis: Acute resp failure Interval history: 58-year-old Banglades[place] female with medical history significant for stage IV breast cancer, metastasis to the bone and to the spinal cord with spinal compression is interested to the emergency department with complaints of shortness of breath. CTA was done in the emergency department and no PE was shown. Patient was recently discharged from [facility] to hospice care. I get the record from [facility] and she was admitted with the same problems. patient is full code and family wants everything to be done and don't want hospice care instead they want HH at discharge Objective - Constitutional Vitals: Vital Signs - 12hr 02/09/19 02/09/19 02/09/19 07:29 07:33 07:38 Temperature 98.0 F Pulse Rate 109 H 109 H Pulse Rate [ Apical] Pulse Rate [ Left Posterior Tibial] Pulse Rate [ Left Radial] Pulse Rate [ Right Posterior Tibial] Pulse Rate [ Right Radial] Respiratory 18 26 H 26 H Rate Blood Pressure 105/81 O2 Sat by Pulse 100 100 Oximetry 02/09/19 02/09/19 02/09/19 08:47 10:00 12:00 Temperature Pulse Rate 111 H 108 H 100 H Pulse Rate [ 113 H Apical] Pulse Rate [ 113 H Left Posterior Tibial] Pulse Rate [ 113 H Left Radial] Pulse Rate [ 113 H Right Posterior Tibial] Pulse Rate [ 113 H Right Radial] Respiratory 24 Rate Blood Pressure 95/60 O2 Sat by Pulse 96 98 Oximetry 02/09/19 02/09/19 13:05 17:07 Temperature Pulse Rate 105 H 102 H Pulse Rate [ Apical] Pulse Rate [ Left Posterior Tibial] Pulse Rate [ Left Radial] Pulse Rate [ Right Posterior Tibial] Pulse Rate [ Right Radial] Respiratory 16 16 Rate Blood Pressure O2 Sat by Pulse 100 99 Oximetry - Labs CBC & Chem 7: 02/08/19 04:20 02/08/19 04:20
[2019-02-10] MEDS: D5/0.45NS 1,000 ML IV SCH ×2 (05:47→18:43)
[2019-02-10] MEDS: ATIVAN IV PRN ×3 (05:58→22:54)
[2019-02-10] MEDS: SODIUM CHLORIDE FLUSH SYRINGE 10 ML IV SCH ×2 (10:19→22:50)
[2019-02-10] MEDS: LOPRESSOR IV PRN (13:51)
--- NOTE | 2019-02-10 18:01 | Progress Note ---
Assessment and Plan 58-year-old Tong[place] female with medical history significant for stage IV breast cancer, metastasis to the bone and to the spinal cord with spinal compression is interested to the emergency department with complaints of shortness of breath. CTA was done in the emergency department and no PE was shown. Patient was recently discharged from [facility] to hospice care. I get the record from [facility] and she was admitted with the same problems. patient is full code and family wants everything to be done and don't want hospice care instead they want HH at discharge Acute on chronic hypoxic respiratory failure - Patient was on home oxygen - Continue BiPAP - Pulmonary consult appreciated - If patient deteriorates will intubate her Persistent tachycardia - Continue on Lopressor IV when necessary Stage IV breast cancer, with metastatsis to the bone and spine, paraplegia - Supportive care - Was treated with palliative intent therapy at [facility] - patient is on D5 half normal saline - Patient refused NG tube feeding - We can not take off the BiPAP because patient is desaturating CODE STATUS full Disposition; continue inpatient care. Poor prognosis, dw family, recommend that she return to hospice Subjective Date of service: 02/10/19 Principal diagnosis: Acute resp failure Interval history: 58-year-old [place] female with medical history significant for stage IV breast cancer, metastasis to the bone and to the spinal cord with spinal compression is interested to the emergency department with complaints of shortness of breath. CTA was done in the emergency department and no PE was shown. Patient was recently discharged from [facility] to hospice care. I get the record from [facility] and she was admitted with the same problems. patient is full code and family wants everything to be done and don't want hospice care instead they want HH at discharge Objective - Constitutional Vitals: Vital Signs - 12hr 02/10/19 02/10/19 02/10/19 08:54 09:07 10:00 Temperature 97.4 F L Pulse Rate 125 H 129 H Pulse Rate [ 115 H Apical] Pulse Rate [ 115 H Left Posterior Tibial] Pulse Rate [ 115 H Left Radial] Pulse Rate [ 115 H Right Posterior Tibial] Pulse Rate [ 115 H Right Radial] Respiratory 44 H 27 H Rate Blood Pressure 186/96 108/69 O2 Sat by Pulse 74 L 94 Oximetry 02/10/19 02/10/19 02/10/19 12:49 13:51 13:53 Temperature Pulse Rate 115 H 126 H 98 H Pulse Rate [ Apical] Pulse Rate [ Left Posterior Tibial] Pulse Rate [ Left Radial] Pulse Rate [ Right Posterior Tibial] Pulse Rate [ Right Radial] Respiratory 20 Rate Blood Pressure 151/85 151/85 O2 Sat by Pulse 96 91 Oximetry 02/10/19 17:09 Temperature Pulse Rate 96 H Pulse Rate [ Apical] Pulse Rate [ Left Posterior Tibial] Pulse Rate [ Left Radial] Pulse Rate [ Right Posterior Tibial] Pulse Rate [ Right Radial] Respiratory 27 H Rate Blood Pressure O2 Sat by Pulse 98 Oximetry General appearance: Present: no acute distress, well-nourished - EENT Eyes: PERRL, EOM intact ENT: hearing intact, clear oral mucosa Ears: bilateral: normal - Neck Neck: supple, normal ROM - Respiratory Respiratory effort: normal Respiratory: bilateral: CTA - Breasts Breasts: normal - Cardiovascular Rhythm: regular Heart Sounds: Present: S1 & S2. Absent: gallop, rub Extremities: pulses intact, No edema, normal color, Full ROM - Gastrointestinal General gastrointestinal: Present: soft, non-tender, non-distended, normal bowel sounds - Genitourinary Female genitourinary: normal - Integumentary Integumentary: clear, warm, dry - Musculoskeletal Musculoskeletal: 1, strength equal bilaterally - Neurologic Neurologic: moves all extremities - Psychiatric Psychiatric: memory intact, appropriate mood/affect, intact judgment & insight - Labs CBC & Chem 7: 02/08/19 04:20 02/08/19 04:20
[2019-02-11] MEDS: SODIUM CHLORIDE FLUSH SYRINGE 10 ML IV SCH ×2 (10:37→22:54)
[2019-02-11] MEDS: ATIVAN IV PRN (15:49)
--- NOTE | 2019-02-11 16:24 | Progress Note ---
Assessment and Plan Assesment and plan Acute on chronic hypoxic respiratory failure - Patient was on home oxygen - Continue BiPAP - Pulmonary consult appreciated - If patient deteriorates will intubate her Needs to be in Hospice Persistent tachycardia - Continue on Lopressor IV when necessary Stage IV breast cancer, with metastatsis to the bone and spine, paraplegia - Supportive care - Was treated with palliative intent therapy at [facility] - patient is on D5 half normal saline - Patient refused NG tube feeding - We can not take off the BiPAP because patient is desaturating CODE STATUS full Disposition; continue inpatient care. Poor prognosis, dw family, recommend that she return to hospice Subjective Date of service: 02/11/19 Principal diagnosis: Acute resp failure Interval history: 58-year-old [place] female with medical history significant for stage IV breast cancer, metastasis to the bone and to the spinal cord with spinal compression is interested to the emergency department with complaints of shortness of breath. CTA was done in the emergency department and no PE was shown. Patient was recently discharged from [facility] to hospice care. I get the record from [facility] and she was admitted with the same problems. patient is full code and family wants everything to be done and don't want hospice care instead they want HH at discharge Objective - Exam Narrative Exam: On Bipap - Constitutional Vitals: Vital Signs - 12hr 02/11/19 02/11/19 02/11/19 04:41 07:40 07:53 Temperature 98.3 F Pulse Rate 116 H 106 H Pulse Rate [ Apical] Pulse Rate [ Left Posterior Tibial] Pulse Rate [ Left Radial] Pulse Rate [ Right Posterior Tibial] Pulse Rate [ Right Radial] Respiratory 23 18 Rate Blood Pressure 88/58 Blood Pressure [Left] O2 Sat by Pulse 91 97 99 Oximetry 02/11/19 02/11/19 02/11/19 10:00 12:00 12:33 Temperature 97.8 F Pulse Rate 116 H 108 H 113 H Pulse Rate [ 116 H Apical] Pulse Rate [ 116 H Left Posterior Tibial] Pulse Rate [ 116 H Left Radial] Pulse Rate [ 116 H Right Posterior Tibial] Pulse Rate [ 116 H Right Radial] Respiratory 27 H 25 H 21 Rate Blood Pressure Blood Pressure 100/60 [Left] O2 Sat by Pulse 96 94 100 Oximetry General appearance: Present: mild distress, well-nourished - EENT Eyes: PERRL, EOM intact ENT: hearing intact, clear oral mucosa Ears: bilateral: normal - Neck Neck: supple, normal ROM - Respiratory Respiratory effort: normal Respiratory: bilateral: diminished, rhonchi, wheezing - Breasts Breasts: normal - Cardiovascular Heart rate: 98 Rhythm: regular Heart Sounds: Present: S1 & S2. Absent: gallop, rub Extremities: no ischemia, pulses intact, No edema, normal color, Full ROM - Gastrointestinal General gastrointestinal: Present: soft, non-tender, non-distended, normal bowel sounds - Genitourinary Female genitourinary: normal - Integumentary Integumentary: clear, warm, dry - Musculoskeletal Musculoskeletal: 1, strength equal bilaterally - Neurologic Neurologic: moves all extremities - Psychiatric Psychiatric: memory intact, appropriate mood/affect, intact judgment & insight - Labs CBC & Chem 7: 02/08/19 04:20 02/08/19 04:20
[2019-02-11] MEDS ORDERED: LASIX IV ONE (17:30)
[2019-02-12] MEDS: DILAUDID IV PRN (00:49)
--- NOTE | 2019-02-12 09:12 | Progress Note ---
Assessment and Plan Assesment and plan Acute on chronic hypoxic respiratory failure - Patient was on home oxygen - Continue BiPAP - Pulmonary consult appreciated - If patient deteriorates will intubate her Needs to be in Hospice Persistent tachycardia - Continue on Lopressor IV when necessary Stage IV breast cancer, with metastatsis to the bone and spine, paraplegia - Supportive care - Was treated with palliative intent therapy at [facility] - patient is on D5 half normal saline - Patient refused NG tube feeding - We can not take off the BiPAP because patient is desaturating CODE STATUS full Disposition; continue inpatient care. Poor prognosis, dw family, recommend that she return to hospice Subjective Date of service: 02/12/19 Principal diagnosis: Acute resp failure Interval history: 58-year-old [place] female with medical history significant for stage IV breast cancer, metastasis to the bone and to the spinal cord with spinal compression is interested to the emergency department with complaints of shortness of breath. CTA was done in the emergency department and no PE was shown. Patient was recently discharged from [facility] to hospice care. I get the record from [facility] and she was admitted with the same problems. patient is full code and family wants everything to be done and don't want hospice care instead they want HH at discharge Objective - Exam Narrative Exam: On Bipap - Constitutional Vitals: Vital Signs - 12hr 02/11/19 02/11/19 02/11/19 22:00 23:00 23:54 Temperature 98.6 F Pulse Rate 116 H 107 H Respiratory 16 Rate Blood Pressure 99/56 O2 Sat by Pulse 95 96 100 Oximetry 02/12/19 02/12/19 02/12/19 00:00 00:49 03:49 Temperature 99.4 F Pulse Rate 110 H 105 H Respiratory 33 H 22 18 Rate Blood Pressure 100/65 O2 Sat by Pulse 96 100 Oximetry 02/12/19 02/12/19 02/12/19 07:31 07:42 07:47 Temperature 98.4 F Pulse Rate 112 H 110 H Respiratory 18 27 H Rate Blood Pressure 97/63 O2 Sat by Pulse 94 100 100 Oximetry 02/12/19 08:40 Temperature Pulse Rate Respiratory 20 Rate Blood Pressure O2 Sat by Pulse 95 Oximetry General appearance: Present: no acute distress, well-nourished - EENT Eyes: PERRL, EOM intact ENT: hearing intact, clear oral mucosa Ears: bilateral: normal - Neck Neck: supple, normal ROM - Respiratory Respiratory effort: normal Respiratory: bilateral: CTA, rhonchi, wheezing - Breasts Breasts: normal - Cardiovascular Heart rate: 78 Rhythm: regular Heart Sounds: Present: S1 & S2. Absent: gallop, rub Extremities: no ischemia, pulses intact, No edema, normal color, Full ROM - Gastrointestinal General gastrointestinal: Present: soft, non-tender, non-distended, normal bowel sounds - Genitourinary Female genitourinary: normal - Integumentary Integumentary: clear, warm, dry - Musculoskeletal Musculoskeletal: 1, strength equal bilaterally - Neurologic Neurologic: moves all extremities - Psychiatric Psychiatric: memory intact, appropriate mood/affect, intact judgment & insight - Labs CBC & Chem 7: 02/08/19 04:20 02/08/19 04:20
[2019-02-12] MEDS: SODIUM CHLORIDE FLUSH SYRINGE 10 ML IV SCH (09:30)
[2019-02-12] MEDS: ATIVAN IV PRN (15:11)
[2019-02-12] MEDS ORDERED: LASIX IV ONE (16:00)
[2019-02-12] MEDS ORDERED: TYLENOL PR PRN (22:18)
[2019-02-13] MEDS: LOPRESSOR IV PRN (00:15)
[2019-02-13] MEDS: DILAUDID IV PRN (00:17)
[2019-02-13] MEDS: SODIUM CHLORIDE FLUSH SYRINGE 10 ML IV SCH ×2 (00:18→10:32)
[2019-02-13] MEDS: ATIVAN IV PRN ×2 (05:42→12:22)
[2019-02-13 05:59] LABS: Hematocrit 22.7 % (30.3-42.9); Hemoglobin 7.5 gm/dl (10.1-14.3); Mean Corpuscular HGB Conc 33 % (30-34); Mean Corpuscular Volume 93 fl (79-97); Red Blood Count 2.43 M/mm3 (3.65-5.03)
[2019-02-13 06:10] LABS: Platelet Count 91 K/mm3 (140-440); Red Cell Distribution Width 24.3 % (13.2-15.2)
[2019-02-13 06:25] LABS: Alanine Aminotransferase 25 units/L (7-56); Albumin 2.2 g/dL (3.9-5); BUN/Creatinine Ratio 33; Blood Urea Nitrogen 10 mg/dL (7-17); Calcium 8.8 mg/dL (8.4-10.2); Hemolysis Index 0
[2019-02-13 07:42] LABS: Basophils % (Manual) 0 % (0.0-1.8); Eosinophils % (Manual) 0 % (0.0-4.3); Total Cells Counted 100
[2019-02-13 07:43] LABS: Anisocytosis 2+; Poikilocytosis 1+
[2019-02-13 07:44] LABS: Platelet Estimate Consistent w Auto; Tear Drop Cells Few
--- NOTE | 2019-02-13 16:39 | Progress Note ---
Assessment and Plan 58-year-old Uz[place] female with medical history significant for stage IV breast cancer, metastasis to the bone and to the spinal cord with spinal compression is interested to the emergency department with complaints of shortness of breath. CTA was done in the emergency department and no PE was shown. Patient was recently discharged from [facility] to hospice care. I get the record from [facility] and she was admitted with the same problems. patient is full code and family wants everything to be done and don't want hospice care instead they want HH at discharge Acute on chronic hypoxic respiratory failure - Patient was on home oxygen - Continue BiPAP - Pulmonary consult appreciated - If patient deteriorates will intubate her Persistent tachycardia - Continue on Lopressor IV when necessary Stage IV breast cancer, with metastatsis to the bone and spine, paraplegia - Supportive care - Was treated with palliative intent therapy at [facility] - patient is on D5 half normal saline - Patient refused NG tube feeding - We can not take off the BiPAP because patient is desaturating CODE STATUS full Disposition; continue inpatient care. Poor prognosis, dw family, recommend that she return to hospice nEEDS icu AND THEN ltac d/W dR Che Subjective Date of service: 02/13/19 Principal diagnosis: Acute resp failure Interval history: 58-year-old Uz[place] female with medical history significant for stage IV breast cancer, metastasis to the bone and to the spinal cord with spinal compression is interested to the emergency department with complaints of shortness of breath. CTA was done in the emergency department and no PE was shown. Patient was recently discharged from [facility] [place] to hospice care. I get the record from [facility] and she was admitted with the same problems. patient is full code and family wants everything to be done and don't want hospice care instead they want HH at discharge sTILL ON bIPAP Objective - Constitutional Vitals: Vital Signs - 12hr 02/13/19 02/13/19 02/13/19 04:43 04:45 08:07 Temperature 98.6 F Pulse Rate 119 H 123 H Pulse Rate [ Apical] Pulse Rate [ Left Posterior Tibial] Pulse Rate [ Left Radial] Pulse Rate [ Right Posterior Tibial] Pulse Rate [ Right Radial] Respiratory 16 19 Rate Blood Pressure 106/67 O2 Sat by Pulse 96 96 Oximetry 02/13/19 02/13/19 02/13/19 08:21 10:00 11:00 Temperature 97.6 F Pulse Rate 125 H 129 H Pulse Rate [ 129 H Apical] Pulse Rate [ 129 H Left Posterior Tibial] Pulse Rate [ 129 H Left Radial] Pulse Rate [ 129 H Right Posterior Tibial] Pulse Rate [ 129 H Right Radial] Respiratory 18 16 Rate Blood Pressure 109/70 O2 Sat by Pulse 95 94 96 Oximetry 02/13/19 02/13/19 12:13 16:12 Temperature Pulse Rate 117 H 116 H Pulse Rate [ Apical] Pulse Rate [ Left Posterior Tibial] Pulse Rate [ Left Radial] Pulse Rate [ Right Posterior Tibial] Pulse Rate [ Right Radial] Respiratory 16 16 Rate Blood Pressure O2 Sat by Pulse 97 99 Oximetry General appearance: Present: severe distress - Cardiovascular Heart rate: 98 Rhythm: regular Extremities: no ischemia, pulses intact - Labs CBC & Chem 7: 02/13/19 05:22 02/13/19 05:22 Labs: Abnormal lab results 02/13/19 02/13/19 Range/Units 05:22 05:22 RBC 2.43 L (3.65-5.03) M/mm3 Hgb 7.5 L (10.1-14.3) gm/dl Hct 22.7 L (30.3-42.9) % RDW 24.3 H (13.2-15.2) % Plt Count 91 L (140-440) K/mm3 Seg Neuts % (Manual) 87.0 H (40.0-70.0) % Lymphocytes % (Manual) 3.0 L (13.4-35.0) % Nucleated RBC % 29.0 H (0.0-0.9) % Seg Neutrophils # Man 0.0 L (1.8-7.7) K/mm3 Lymphocytes # (Manual) 0.0 L (1.2-5.4) K/mm3 Creatinine 0.3 L (0.7-1.2) mg/dL Total Bilirubin 1.70 H (0.1-1.2) mg/dL AST 72 H (5-40) units/L Alkaline Phosphatase 138 H (35-129) units/L Total Protein 4.9 L (6.3-8.2) g/dL Albumin 2.2 L (3.9-5) g/dL
[2019-02-14] MEDS: DILAUDID IV PRN (01:35)
[2019-02-14] MEDS: SODIUM CHLORIDE FLUSH SYRINGE 10 ML IV SCH ×2 (01:36→11:43)
[2019-02-14] MEDS: ATIVAN IV PRN (11:41)
--- NOTE | 2019-02-14 12:48 | Progress Note ---
Assessment and Plan Assessment and plan: Acute on chronic hypoxic respiratory failure -Patient was on home oxygen -Continue BiPAP and taper off as tolerated -Poor prognosis Persistent sinus tachycardia -Continue Lopressor IV when necessary Stage IV breast cancer, with metastasis to the bone and spine -Status post lumpectomy -Cont supportive care. Pt was treated with palliative therapy at [facility] Chest pain/Dyspnea -CTA chest negative for acute PE Mild hyponatremia -Improved Abnormal LFT -Probably secondary to metastasis Anemia of chronic disease -We'll monitor his H&H Paraplegia -Continue supportive care Nutrition -cont IV D5 normal saline -Patient refused NG tube placement. However, she can't be taken off BiPAP for oral diet because she's desaturating CODE STATUS: full Disposition: Poor prognosis, hospice recommended. Plan is to continue discussion with family about discharge planning History Interval history: Patient seen today. She is unable to communicate appropriately. No significant change or new issues overnight. Hospitalist Physical - Constitutional Vitals: Temp Pulse Resp BP Pulse Ox 98.0 F 127 H 18 113/76 98 02/14/19 11:12 02/14/19 11:12 02/14/19 11:12 02/14/19 11:12 02/14/19 11:12 General appearance: Present: no acute distress - EENT Eyes: Present: PERRL, EOM intact ENT: clear oral mucosa - Neck Neck: Present: supple - Respiratory Respiratory effort: normal Respiratory: bilateral: diminished - Cardiovascular Rhythm: regular (with tachycardia) Heart Sounds: Present: S1 & S2 - Extremities Extremity abnormal: edema (in BLE) - Abdominal General gastrointestinal: soft, non-tender, normal bowel sounds - Integumentary Integumentary: Present: warm, dry - Neurologic Neurologic: other (paraplegic) Results - Labs CBC & Chem 7: 02/13/19 05:22 02/13/19 05:22 Labs: Laboratory Last Values WBC 10.6 K/mm3 (4.5-11.0) 02/13/19 05:22 RBC 2.43 M/mm3 (3.65-5.03) L 02/13/19 05:22 Hgb 7.5 gm/dl (10.1-14.3) L 02/13/19 05:22 Hct 22.7 % (30.3-42.9) L 02/13/19 05:22 MCV 93 fl (79-97) 02/13/19 05:22 MCH 31 pg (28-32) 02/13/19 05:22 MCHC 33 % (30-34) 02/13/19 05:22 RDW 24.3 % (13.2-15.2) H 02/13/19 05:22 Plt Count 91 K/mm3 (140-440) L 02/13/19 05:22 Lymph % (Auto) [employer] Cross[employer]ter 02/03/19 04:43 [place] % (Auto) [employer] Cross[employer]ter 02/03/19 04:43 Eos % (Auto) [employer] Cross[employer] 02/03/19 04:43 Baso % (Auto) [employer] 02/03/19 04:43 Lymph # [employer] 02/03/19 04:43 [place] # [employer] 02/03/19 04:43 Eos # [employer] 02/03/19 04:43 Baso # [employer] Cross[employer] 02/03/19 04:43 Add Manual Diff Complete 02/13/19 05:22 Total Counted 100 02/13/19 05:22 Seg Neutrophils % [employer] 02/03/19 04:43 Seg Neuts % (Manual) 87.0 % (40.0-70.0) H 02/13/19 05:22 1.0 % 02/13/19 05:22 3.0 % (13.4-35.0) L 02/13/19 05:22 Reactive Lymphs % (Man) 0 % 02/13/19 05:22 5.0 % (0.0-7.3) 02/13/19 05:22 0 % (0.0-4.3) 02/13/19 05:22 0 % (0.0-1.8) 02/13/19 05:22 4.0 % 02/13/19 05:22 0 % 02/13/19 05:22 0 % 02/13/19 05:22 0 % 02/13/19 05:22 Nucleated RBC % 29.0 % (0.0-0.9) H 02/13/19 05:22 Seg Neutrophils # [employer] Cross[employer] 02/03/19 04:43 Seg Neutrophils # Man 0.0 K/mm3 (1.8-7.7) L 02/13/19 05:22 Band Neutrophils # 0.0 K/mm3 02/13/19 05:22 0.0 K/mm3 (1.2-5.4) L 02/13/19 05:22 Abs React Lymphs (Man) 0.0 K/mm3 02/13/19 05:22 0.0 K/mm3 (0.0-0.8) 02/13/19 05:22 0.0 K/mm3 (0.0-0.4) 02/13/19 05:22 0.0 K/mm3 (0.0-0.1) 02/13/19 05:22 0.0 K/mm3 02/13/19 05:22 0.0 K/mm3 02/13/19 05:22 0.0 K/mm3 02/13/19 05:22 Blast Cells # 0.0 K/mm3 02/13/19 05:22 WBC Morphology Not Reportable 02/13/19 05:22 Hypersegmented Neuts Not Reportable 02/13/19 05:22 Hyposegmented Neuts Not Reportable 02/13/19 05:22 Hypogranular Neuts Not Reportable 02/13/19 05:22 Not Reportable 02/13/19 05:22 Not Reportable 02/13/19 05:22 Not Reportable 02/13/19 05:22 Not Reportable 02/13/19 05:22 Not Reportable 02/13/19 05:22 Not Reportable 02/13/19 05:22 Consistent w auto 02/13/19 05:22 Not Reportable 02/13/19 05:22 Plt Clumps, EDTA Not Reportable 02/13/19 05:22 Not Reportable 02/13/19 05:22 Not Reportable 02/13/19 05:22 Not Reportable 02/13/19 05:22 Plt Morphology Comment Not Reportable 02/13/19 05:22 RBC Morphology Not Reportable 02/13/19 05:22 Dimorphic RBCs Not Reportable 02/13/19 05:22 Not Reportable 02/13/19 05:22 Not Reportable 02/13/19 05:22 1+ 02/13/19 05:22 2+ 02/13/19 05:22 Not Reportable 02/13/19 05:22 Not Reportable 02/13/19 05:22 Not Reportable 02/13/19 05:22 Not Reportable 02/13/19 05:22 Not Reportable 02/13/19 05:22 Not Reportable 02/13/19 05:22 Few 02/13/19 05:22 Not Reportable 02/13/19 05:22 Not Reportable 02/13/19 05:22 Not Reportable 02/13/19 05:22 Not Reportable 02/13/19 05:22 Not Reportable 02/13/19 05:22 Not Reportable 02/13/19 05:22 Not Reportable 02/13/19 05:22 Few 02/13/19 05:22 Acanthocytes (Spur) Not Reportable 02/13/19 05:22 Rouleaux Not Reportable 02/13/19 05:22 Not Reportable 02/13/19 05:22 Not Reportable 02/13/19 05:22 Not Reportable 02/13/19 05:22 Not Reportable 02/13/19 05:22 Hem Pathologist Commnt No 02/13/19 05:22 PT 15.1 Sec. (12.2-14.9) H 02/01/19 18:00 INR 1.22 (0.87-1.13) H 02/01/19 18:00 APTT 27.2 Sec. (24.2-36.6) 02/01/19 18:00 6342.18 ng/mlDDU (0-234) H 02/01/19 18:00 POC ABG pH 7.449 (7.35-7.45) 02/02/19 09:49 POC ABG pCO2 39.9 (35-45) 02/02/19 09:49 POC ABG pO2 72 (80-105) L 02/02/19 09:49 POC ABG HCO3 27.6 (22-26 mml/L) 02/02/19 09:49 POC ABG Total CO2 29 (23-27mmol/L) 02/02/19 09:49 POC ABG O2 Sat 95 02/02/19 09:49 POC ABG Base Excess 4 ((-2) - (+3)mmol/L) 02/02/19 09:49 35 % 02/02/19 09:49 Sodium 137 mmol/L (137-145) 02/13/19 05:22 Potassium 4.7 mmol/L (3.6-5.0) 02/13/19 05:22 Chloride 104.0 mmol/L (98-107) 02/13/19 05:22 Carbon Dioxide 22 mmol/L (22-30) 02/13/19 05:22 16 mmol/L 02/13/19 05:22 BUN 10 mg/dL (7-17) 02/13/19 05:22 0.3 mg/dL (0.7-1.2) L 02/13/19 05:22 Estimated GFR > 60 ml/min 02/13/19 05:22 33 % 02/13/19 05:22 Glucose 75 mg/dL (65-100) 02/13/19 05:22 POC Glucose 134 (70-105) H 02/06/19 16:41 Calcium 8.8 mg/dL (8.4-10.2) 02/13/19 05:22 1.70 mg/dL (0.1-1.2) H 02/13/19 05:22 AST 72 units/L (5-40) H 02/13/19 05:22 ALT 25 units/L (7-56) 02/13/19 05:22 138 units/L (35-129) H 02/13/19 05:22 132 units/L (30-135) 02/01/19 18:00 CK-MB (CK-2) 3.8 ng/mL (0.0-4.0) 02/01/19 18:00 CK-MB (CK-2) Rel Index 2.8 (0-4) 02/01/19 18:00 < 0.010 ng/mL (0.00-0.029) 02/01/19 18:00 NT-Pro-B Natriuret Pep 1304 pg/mL (0-900) H 02/01/19 18:00 4.9 g/dL (6.3-8.2) L 02/13/19 05:22 2.2 g/dL (3.9-5) L 02/13/19 05:22 0.8 % 02/13/19 05:22 Active Medications - Current Medications Current Medications: Generic Name Dose Route Start Last Admin Trade Name Freq PRN Reason Stop Dose Admin Acetaminophen 650 mg 02/01/19 23:33 Tylenol PO Q4H PRN Pain MILD(1-3)/Fever >100.5/PEREZ Acetaminophen 650 mg 02/12/19 22:18 02/13/19 00:15 Tylenol [place] 650 mg Q4H PRN Administration Pain, Mild (1-3) Acetaminophen/Hydrocodone Bitart 2 each 02/01/19 23:33 [place] 5/325 PO Q6H PRN Pain, Moderate (4-6) Hydromorphone HCl 0.5 mg 02/02/19 09:04 02/14/19 01:35 Dilaudid IV 0.5 mg Q3H PRN Administration Pain , Severe (7-10) Lorazepam 1 mg 02/08/19 11:30 02/14/19 11:41 Ativan IV 1 mg Q6H PRN Administration Anxiety Metoprolol Tartrate 2.5 mg 02/02/19 16:33 02/13/19 00:15 Lopressor IV 2.5 mg Q6HR PRN Administration tachycardia Ondansetron HCl 4 mg 02/01/19 23:33 Zofran IV Q8H PRN Nausea And Vomiting Sodium Chloride 10 ml 02/02/19 10:00 02/14/19 11:43 Sodium Chloride Flush Syringe 10 Ml IV 10 ml BID AYO Administration Sodium Chloride 10 ml 02/01/19 23:33 Sodium Chloride Flush Syringe 10 Ml IV PRN PRN LINE FLUSH Nutrition/Malnutrition Assess - Dietary Evaluation Nutrition/Malnutrition Findings: Nutrition Notes Start: 02/02/19 15:14 Freq: Status: Active Protocol: Document 02/13/19 15:09 RM (Rec: 02/13/19 15:11 RM [id number]) Nutrition Notes Initial or Follow up Reassessment Current Diagnosis Hypertension,Respiratory Failure Other Pertinent Diagnosis Acute on chronic resp failure, metastatic breast CA, Sacral PU Current Diet Regular w/Ensure Enlive BID Labs/Tests Reviewed Pertinent Medications Lasix Height 5 ft 6 in Weight 80.6 kg [place] Body Weight (kg) 59.09 BMI 28.6 Subjective/Other Information Per nurse pt is only sipping fluids including the Ensure Enlive d/t being unable to come off BiPAP for more that a few seconds. Per nurse MD is planning to speak with family about starting hospice. Burn Absent Trauma Absent #1 Nutrition Diagnosis Malnutrition Diagnosis Progress(for reassessment Continues documentation) Is patient on ventilator? No Is Patient Ambulatory and/or Out of Bed No REE-([facility]-confined to bed) 6721.691 Calculation Used for Recommendations Helena Newell Additional Notes Pro needs 1-1.2g/k-87g/ day Fluid needs 1ml/kcal Nutrition Intervention Change Diet Order: Continue current diet order Add Supplement/Snack (indicate name/kcal Ensure Enlive 1 daily /protein ) Provides kCal: 350 Provides Protein (gm) 20 Goal #1 PO intakes to meet nutrient needs as best possible Follow-Up By: 02/15/19 Additional Comments Follow for POC
[2019-02-14] MEDS: LOPRESSOR IV PRN ×2 (13:52→23:35)
[2019-02-14] MEDS: D5NS 1,000 ML IV SCH (17:12)
[2019-02-15] MEDS: D5NS 1,000 ML IV SCH (08:37)
--- NOTE | 2019-02-15 14:35 | Progress Note ---
Assessment and Plan Assessment and plan: Acute on chronic hypoxic respiratory failure -Continue BiPAP, unable to taper off -Poor prognosis Persistent sinus tachycardia -Continue Lopressor IV when necessary Stage IV breast cancer, with metastasis to the bone and spine -Status post lumpectomy -Cont supportive care. Pt was treated with palliative therapy at [facility] Chest pain/Dyspnea -CTA chest negative for acute PE Mild hyponatremia -Improved Abnormal LFT -Probably secondary to metastasis Anemia of chronic disease -H&H stable Paraplegia -Continue supportive care Nutrition -IV dextrose fluid -Patient refused NG tube placement. However, she can't be taken off BiPAP for oral diet because she's desaturating CODE STATUS: full Disposition: Poor prognosis, hospice recommended. A meeting is scheduled with the family members today. History Interval history: Patient is unable to communicate appropriately. She is more tachypneic this morning. It was also reported that PICC line placement was unsuccessful and that patient is without any IV access. Hospitalist Physical - Constitutional Vitals: Temp Pulse Resp BP Pulse Ox 97.9 F 101 H 18 115/61 100 02/15/19 07:30 02/15/19 12:00 02/15/19 12:00 02/15/19 07:30 02/15/19 12:00 General appearance: Present: mild distress - EENT Eyes: Present: PERRL ENT: clear oral mucosa - Neck Neck: Present: supple - Respiratory Respiratory effort: labored Respiratory: bilateral: diminished - Cardiovascular Rhythm: regular (with tachycardia) Heart Sounds: Present: S1 & S2 - Extremities Extremity abnormal: edema (in bilateral upper and lower extremities) - Abdominal General gastrointestinal: soft, non-tender, normal bowel sounds - Integumentary Integumentary: Present: clear, warm, dry - Psychiatric Psychiatric: other (unable to communicate) - Neurologic Neurologic: moves all extremities Results - Labs CBC & Chem 7: 02/13/19 05:22 02/13/19 05:22 Labs: Laboratory Last Values WBC 10.6 K/mm3 (4.5-11.0) 02/13/19 05:22 RBC 2.43 M/mm3 (3.65-5.03) L 02/13/19 05:22 Hgb 7.5 gm/dl (10.1-14.3) L 02/13/19 05:22 Hct 22.7 % (30.3-42.9) L 02/13/19 05:22 MCV 93 fl (79-97) 02/13/19 05:22 MCH 31 pg (28-32) 02/13/19 05:22 MCHC 33 % (30-34) 02/13/19 05:22 RDW 24.3 % (13.2-15.2) H 02/13/19 05:22 Plt Count 91 K/mm3 (140-440) L 02/13/19 05:22 Lymph % (Auto) [employer] 02/03/19 04:43 [place] % (Auto) [employer] 02/03/19 04:43 Eos % (Auto) [place] [place] [employer] 02/03/19 04:43 Baso % (Auto) [place] [place] [employer] 02/03/19 04:43 Lymph # [place] 02/03/19 04:43 [place] # [employer] 02/03/19 04:43 Eos # [place] 02/03/19 04:43 Baso # [place] 02/03/19 04:43 Add Manual Diff Complete 02/13/19 05:22 Total Counted 100 02/13/19 05:22 Seg Neutrophils % [employer] 02/03/19 04:43 Seg Neuts % (Manual) 87.0 % (40.0-70.0) H 02/13/19 05:22 1.0 % 02/13/19 05:22 3.0 % (13.4-35.0) L 02/13/19 05:22 Reactive Lymphs % (Man) 0 % 02/13/19 05:22 5.0 % (0.0-7.3) 02/13/19 05:22 0 % (0.0-4.3) 02/13/19 05:22 0 % (0.0-1.8) 02/13/19 05:22 4.0 % 02/13/19 05:22 0 % 02/13/19 05:22 0 % 02/13/19 05:22 0 % 02/13/19 05:22 Nucleated RBC % 29.0 % (0.0-0.9) H 02/13/19 05:22 Seg Neutrophils # [place] [place] [employer] 02/03/19 04:43 Seg Neutrophils # Man 0.0 K/mm3 (1.8-7.7) L 02/13/19 05:22 Band Neutrophils # 0.0 K/mm3 02/13/19 05:22 0.0 K/mm3 (1.2-5.4) L 02/13/19 05:22 Abs React Lymphs (Man) 0.0 K/mm3 02/13/19 05:22 0.0 K/mm3 (0.0-0.8) 02/13/19 05:22 0.0 K/mm3 (0.0-0.4) 02/13/19 05:22 0.0 K/mm3 (0.0-0.1) 02/13/19 05:22 0.0 K/mm3 02/13/19 05:22 0.0 K/mm3 02/13/19 05:22 0.0 K/mm3 02/13/19 05:22 Blast Cells # 0.0 K/mm3 02/13/19 05:22 WBC Morphology Not Reportable 02/13/19 05:22 Hypersegmented Neuts Not Reportable 02/13/19 05:22 Hyposegmented Neuts Not Reportable 02/13/19 05:22 Hypogranular Neuts Not Reportable 02/13/19 05:22 Not Reportable 02/13/19 05:22 Not Reportable 02/13/19 05:22 Not Reportable 02/13/19 05:22 Not Reportable 02/13/19 05:22 Not Reportable 02/13/19 05:22 Not Reportable 02/13/19 05:22 Consistent w auto 02/13/19 05:22 Not Reportable 02/13/19 05:22 Plt Clumps, EDTA Not Reportable 02/13/19 05:22 Not Reportable 02/13/19 05:22 Not Reportable 02/13/19 05:22 Not Reportable 02/13/19 05:22 Plt Morphology Comment Not Reportable 02/13/19 05:22 RBC Morphology Not Reportable 02/13/19 05:22 Dimorphic RBCs Not Reportable 02/13/19 05:22 Not Reportable 02/13/19 05:22 Not Reportable 02/13/19 05:22 1+ 02/13/19 05:22 2+ 02/13/19 05:22 Not Reportable 02/13/19 05:22 Not Reportable 02/13/19 05:22 Not Reportable 02/13/19 05:22 Not Reportable 02/13/19 05:22 Not Reportable 02/13/19 05:22 Not Reportable 02/13/19 05:22 Few 02/13/19 05:22 Not Reportable 02/13/19 05:22 Not Reportable 02/13/19 05:22 Not Reportable 02/13/19 05:22 Not Reportable 02/13/19 05:22 Not Reportable 02/13/19 05:22 Not Reportable 02/13/19 05:22 Not Reportable 02/13/19 05:22 Few 02/13/19 05:22 Acanthocytes (Spur) Not Reportable 02/13/19 05:22 Rouleaux Not Reportable 02/13/19 05:22 Not Reportable 02/13/19 05:22 Not Reportable 02/13/19 05:22 Not Reportable 02/13/19 05:22 Not Reportable 02/13/19 05:22 Hem Pathologist Commnt No 02/13/19 05:22 PT 15.1 Sec. (12.2-14.9) H 02/01/19 18:00 INR 1.22 (0.87-1.13) H 02/01/19 18:00 APTT 27.2 Sec. (24.2-36.6) 02/01/19 18:00 6342.18 ng/mlDDU (0-234) H 02/01/19 18:00 POC ABG pH 7.449 (7.35-7.45) 02/02/19 09:49 POC ABG pCO2 39.9 (35-45) 02/02/19 09:49 POC ABG pO2 72 (80-105) L 02/02/19 09:49 POC ABG HCO3 27.6 (22-26 mml/L) 02/02/19 09:49 POC ABG Total CO2 29 (23-27mmol/L) 02/02/19 09:49 POC ABG O2 Sat 95 02/02/19 09:49 POC ABG Base Excess 4 ((-2) - (+3)mmol/L) 02/02/19 09:49 35 % 02/02/19 09:49 Sodium 137 mmol/L (137-145) 02/13/19 05:22 Potassium 4.7 mmol/L (3.6-5.0) 02/13/19 05:22 Chloride 104.0 mmol/L (98-107) 02/13/19 05:22 Carbon Dioxide 22 mmol/L (22-30) 02/13/19 05:22 16 mmol/L 02/13/19 05:22 BUN 10 mg/dL (7-17) 02/13/19 05:22 0.3 mg/dL (0.7-1.2) L 02/13/19 05:22 Estimated GFR > 60 ml/min 02/13/19 05:22 33 % 02/13/19 05:22 Glucose 75 mg/dL (65-100) 02/13/19 05:22 POC Glucose 140 (70-105) H 02/15/19 05:28 Calcium 8.8 mg/dL (8.4-10.2) 02/13/19 05:22 1.70 mg/dL (0.1-1.2) H 02/13/19 05:22 AST 72 units/L (5-40) H 02/13/19 05:22 ALT 25 units/L (7-56) 02/13/19 05:22 138 units/L (35-129) H 02/13/19 05:22 132 units/L (30-135) 02/01/19 18:00 CK-MB (CK-2) 3.8 ng/mL (0.0-4.0) 02/01/19 18:00 CK-MB (CK-2) Rel Index 2.8 (0-4) 02/01/19 18:00 < 0.010 ng/mL (0.00-0.029) 02/01/19 18:00 NT-Pro-B Natriuret Pep 1304 pg/mL (0-900) H 02/01/19 18:00 4.9 g/dL (6.3-8.2) L 02/13/19 05:22 2.2 g/dL (3.9-5) L 02/13/19 05:22 0.8 % 02/13/19 05:22 Active Medications - Current Medications Current Medications: Generic Name Dose Route Start Last Admin Trade Name Freq PRN Reason Stop Dose Admin Acetaminophen 650 mg 02/01/19 23:33 Tylenol PO Q4H PRN Pain MILD(1-3)/Fever >100.5/PEREZ Acetaminophen 650 mg 02/12/19 22:18 02/13/19 00:15 Tylenol [place] 650 mg Q4H PRN Administration Pain, Mild (1-3) Acetaminophen/Hydrocodone Bitart 2 each 02/01/19 23:33 [place] 5/325 PO Q6H PRN Pain, Moderate (4-6) Hydromorphone HCl 0.5 mg 02/02/19 09:04 02/14/19 01:35 Dilaudid IV 0.5 mg Q3H PRN Administration Pain , Severe (7-10) Dextrose/Sodium Chloride 1,000 mls @ 75 mls/hr 02/14/19 13:00 02/15/19 08:37 D5ns IV 75 mls/hr DIRECT AYO Administration Lorazepam 1 mg 02/08/19 11:30 02/14/19 11:41 Ativan IV 1 mg Q6H PRN Administration Anxiety Metoprolol Tartrate 2.5 mg 02/02/19 16:33 02/14/19 23:35 Lopressor IV 2.5 mg Q6HR PRN Administration tachycardia Ondansetron HCl 4 mg 02/01/19 23:33 Zofran IV Q8H PRN Nausea And Vomiting Sodium Chloride 10 ml 02/02/19 10:00 02/14/19 11:43 Sodium Chloride Flush Syringe 10 Ml IV 10 ml BID AYO Administration Sodium Chloride 10 ml 02/01/19 23:33 Sodium Chloride Flush Syringe 10 Ml IV PRN PRN LINE FLUSH Nutrition/Malnutrition Assess - Dietary Evaluation Nutrition/Malnutrition Findings: Nutrition Notes Start: 02/02/19 15:14 Freq: Status: Active Protocol: Document 02/13/19 15:09 RM (Rec: 02/13/19 15:11 RM [id number]) Nutrition Notes Initial or Follow up Reassessment Current Diagnosis Hypertension,Respiratory Failure Other Pertinent Diagnosis Acute on chronic resp failure, metastatic breast CA, Sacral PU Current Diet Regular w/Ensure Enlive BID Labs/Tests Reviewed Pertinent Medications Lasix Height 5 ft 6 in Weight 80.6 kg [place] Body Weight (kg) 59.09 BMI 28.6 Subjective/Other Information Per nurse pt is only sipping fluids including the Ensure Enlive d/t being unable to come off BiPAP for more that a few seconds. Per nurse MD is planning to speak with family about starting hospice. Burn Absent Trauma Absent #1 Nutrition Diagnosis Malnutrition Diagnosis Progress(for reassessment Continues documentation) Is patient on ventilator? No Is Patient Ambulatory and/or Out of Bed No REE-([facility]-confined to bed) [phone] Calculation Used for Recommendations [facility] Additional Notes Pro needs 1-1.2g/k-87g/ day Fluid needs 1ml/kcal Nutrition Intervention Change Diet Order: Continue current diet order Add Supplement/Snack (indicate name/kcal Ensure Enlive 1 daily /protein ) Provides kCal: 350 Provides Protein (gm) 20 Goal #1 PO intakes to meet nutrient needs as best possible Follow-Up By: 02/15/19 Additional Comments Follow for POC
--- NOTE | 2019-02-15 20:09 | Event Note ---
Date: 02/15/19 Patient is a 58-year-old female that I was asked to see for IV access. IV access needed but the nurse was unable to gain access. Multiple attempts have been done by the nurses. The hospitalist asked me to start a line. Timeout done with nurse and family. Consent received from family. Patient had a left EJ placed. Done under sterile conditions. Patient tolerated procedure well. 20 Gauge Placed. Line secured with tape and Tegaderm. patient is noted. Good blood return noted.
[2019-02-16] MEDS: SODIUM CHLORIDE FLUSH SYRINGE 10 ML IV SCH ×5 (02:31→23:18)
[2019-02-16] MEDS: ATIVAN IV PRN (04:34)
--- NOTE | 2019-02-16 12:17 | Progress Note ---
Assessment and Plan Assessment and plan: Acute on chronic hypoxic respiratory failure -On continuous BiPAP, unable to taper off -Poor prognosis Acute metabolic encephalopathy -No significant change, will continue to monitor clinically Persistent sinus tachycardia -Continue Lopressor IV when necessary Stage IV breast cancer, with metastasis to the bone and spine -Status post lumpectomy -Cont supportive care. Pt was recently treated with palliative therapy at [facility] Chest pain/Dyspnea -CTA chest negative for acute PE Mild hyponatremia -Improved Abnormal LFT -Probably secondary to metastasis Anemia of chronic disease -H&H stable Paraplegia -Continue supportive care History of hypertension -Blood pressure stable Nutrition -Patient refused NG tube placement. However, she can't be taken off BiPAP for oral diet because she's desaturating CODE STATUS: full Disposition: Poor prognosis, hospice recommended. However, despite extensive discussion with the family, they stated that they still want her to be full code and do not want hospice. CM looking for NHF that can accept BIPAP which is very challenging. History Interval history: Patient is nonverbal. No reported issues overnight per the nursing staff. IV access placed yesterday Hospitalist Physical - Constitutional Vitals: Temp Pulse Resp BP Pulse Ox 98.9 F 117 H 50 H 124/69 98 02/16/19 07:46 02/16/19 07:46 02/16/19 07:46 02/16/19 07:46 02/16/19 07:46 General appearance: Present: mild distress, other (on BIPAP) - EENT Eyes: Present: PERRL, EOM intact ENT: clear oral mucosa - Neck Neck: Present: supple - Respiratory Respiratory effort: labored Respiratory: bilateral: rales - Cardiovascular Rhythm: regular (with tachycardia) Heart Sounds: Present: S1 & S2 - Extremities Extremity abnormal: edema (in BLE and BUE) - Abdominal General gastrointestinal: soft, non-tender, normal bowel sounds - Integumentary Integumentary: Present: clear, warm, dry - Neurologic Neurologic: other (patient is altered and unable to communicate) Results - Labs CBC & Chem 7: 02/13/19 05:22 02/13/19 05:22 Labs: Laboratory Last Values WBC 10.6 K/mm3 (4.5-11.0) 02/13/19 05:22 RBC 2.43 M/mm3 (3.65-5.03) L 02/13/19 05:22 Hgb 7.5 gm/dl (10.1-14.3) L 02/13/19 05:22 Hct 22.7 % (30.3-42.9) L 02/13/19 05:22 MCV 93 fl (79-97) 02/13/19 05:22 MCH 31 pg (28-32) 02/13/19 05:22 MCHC 33 % (30-34) 02/13/19 05:22 RDW 24.3 % (13.2-15.2) H 02/13/19 05:22 Plt Count 91 K/mm3 (140-440) L 02/13/19 05:22 Lymph % (Auto) Notch Grinder 02/03/19 04:43 [place] % (Auto) Notch Grinder 02/03/19 04:43 Eos % (Auto) [place] 02/03/19 04:43 Baso % (Auto) [place] Gr[place] 02/03/19 04:43 Lymph # [place] Grinder 02/03/19 04:43 [place] # Notch Grinder 02/03/19 04:43 Eos # Notch Grinder 02/03/19 04:43 Baso # Notch Grinder 02/03/19 04:43 Add Manual Diff Complete 02/13/19 05:22 Total Counted 100 02/13/19 05:22 Seg Neutrophils % Notch Grinder 02/03/19 04:43 Seg Neuts % (Manual) 87.0 % (40.0-70.0) H 02/13/19 05:22 1.0 % 02/13/19 05:22 3.0 % (13.4-35.0) L 02/13/19 05:22 Reactive Lymphs % (Man) 0 % 02/13/19 05:22 5.0 % (0.0-7.3) 02/13/19 05:22 0 % (0.0-4.3) 02/13/19 05:22 0 % (0.0-1.8) 02/13/19 05:22 4.0 % 02/13/19 05:22 0 % 02/13/19 05:22 0 % 02/13/19 05:22 0 % 02/13/19 05:22 Nucleated RBC % 29.0 % (0.0-0.9) H 02/13/19 05:22 Seg Neutrophils # Notch Grinder 02/03/19 04:43 Seg Neutrophils # Man 0.0 K/mm3 (1.8-7.7) L 02/13/19 05:22 Band Neutrophils # 0.0 K/mm3 02/13/19 05:22 0.0 K/mm3 (1.2-5.4) L 02/13/19 05:22 Abs React Lymphs (Man) 0.0 K/mm3 02/13/19 05:22 0.0 K/mm3 (0.0-0.8) 02/13/19 05:22 0.0 K/mm3 (0.0-0.4) 02/13/19 05:22 0.0 K/mm3 (0.0-0.1) 02/13/19 05:22 0.0 K/mm3 02/13/19 05:22 0.0 K/mm3 02/13/19 05:22 0.0 K/mm3 02/13/19 05:22 Blast Cells # 0.0 K/mm3 02/13/19 05:22 WBC Morphology Not Reportable 02/13/19 05:22 Hypersegmented Neuts Not Reportable 02/13/19 05:22 Hyposegmented Neuts Not Reportable 02/13/19 05:22 Hypogranular Neuts Not Reportable 02/13/19 05:22 Not Reportable 02/13/19 05:22 Not Reportable 02/13/19 05:22 Not Reportable 02/13/19 05:22 Not Reportable 02/13/19 05:22 Not Reportable 02/13/19 05:22 Not Reportable 02/13/19 05:22 Consistent w auto 02/13/19 05:22 Not Reportable 02/13/19 05:22 Plt Clumps, EDTA Not Reportable 02/13/19 05:22 Not Reportable 02/13/19 05:22 Not Reportable 02/13/19 05:22 Not Reportable 02/13/19 05:22 Plt Morphology Comment Not Reportable 02/13/19 05:22 RBC Morphology Not Reportable 02/13/19 05:22 Dimorphic RBCs Not Reportable 02/13/19 05:22 Not Reportable 02/13/19 05:22 Not Reportable 02/13/19 05:22 1+ 02/13/19 05:22 2+ 02/13/19 05:22 Not Reportable 02/13/19 05:22 Not Reportable 02/13/19 05:22 Not Reportable 02/13/19 05:22 Not Reportable 02/13/19 05:22 Not Reportable 02/13/19 05:22 Not Reportable 02/13/19 05:22 Few 02/13/19 05:22 Not Reportable 02/13/19 05:22 Not Reportable 02/13/19 05:22 Not Reportable 02/13/19 05:22 Not Reportable 02/13/19 05:22 Not Reportable 02/13/19 05:22 Not Reportable 02/13/19 05:22 Not Reportable 02/13/19 05:22 Few 02/13/19 05:22 Acanthocytes (Spur) Not Reportable 02/13/19 05:22 Rouleaux Not Reportable 02/13/19 05:22 Not Reportable 02/13/19 05:22 Not Reportable 02/13/19 05:22 Not Reportable 02/13/19 05:22 Not Reportable 02/13/19 05:22 Hem Pathologist Commnt No 02/13/19 05:22 PT 15.1 Sec. (12.2-14.9) H 02/01/19 18:00 INR 1.22 (0.87-1.13) H 02/01/19 18:00 APTT 27.2 Sec. (24.2-36.6) 02/01/19 18:00 6342.18 ng/mlDDU (0-234) H 02/01/19 18:00 POC ABG pH 7.449 (7.35-7.45) 02/02/19 09:49 POC ABG pCO2 39.9 (35-45) 02/02/19 09:49 POC ABG pO2 72 (80-105) L 02/02/19 09:49 POC ABG HCO3 27.6 (22-26 mml/L) 02/02/19 09:49 POC ABG Total CO2 29 (23-27mmol/L) 02/02/19 09:49 POC ABG O2 Sat 95 02/02/19 09:49 POC ABG Base Excess 4 ((-2) - (+3)mmol/L) 02/02/19 09:49 35 % 02/02/19 09:49 Sodium 137 mmol/L (137-145) 02/13/19 05:22 Potassium 4.7 mmol/L (3.6-5.0) 02/13/19 05:22 Chloride 104.0 mmol/L (98-107) 02/13/19 05:22 Carbon Dioxide 22 mmol/L (22-30) 02/13/19 05:22 16 mmol/L 02/13/19 05:22 BUN 10 mg/dL (7-17) 02/13/19 05:22 0.3 mg/dL (0.7-1.2) L 02/13/19 05:22 Estimated GFR > 60 ml/min 02/13/19 05:22 33 % 02/13/19 05:22 Glucose 75 mg/dL (65-100) 02/13/19 05:22 POC Glucose 134 (70-105) H 02/16/19 05:45 Calcium 8.8 mg/dL (8.4-10.2) 02/13/19 05:22 1.70 mg/dL (0.1-1.2) H 02/13/19 05:22 AST 72 units/L (5-40) H 02/13/19 05:22 ALT 25 units/L (7-56) 02/13/19 05:22 138 units/L (35-129) H 02/13/19 05:22 132 units/L (30-135) 02/01/19 18:00 CK-MB (CK-2) 3.8 ng/mL (0.0-4.0) 02/01/19 18:00 CK-MB (CK-2) Rel Index 2.8 (0-4) 02/01/19 18:00 < 0.010 ng/mL (0.00-0.029) 02/01/19 18:00 NT-Pro-B Natriuret Pep 1304 pg/mL (0-900) H 02/01/19 18:00 4.9 g/dL (6.3-8.2) L 02/13/19 05:22 2.2 g/dL (3.9-5) L 02/13/19 05:22 0.8 % 02/13/19 05:22 Active Medications - Current Medications Current Medications: Generic Name Dose Route Start Last Admin Trade Name Freq PRN Reason Stop Dose Admin Acetaminophen 650 mg 02/01/19 23:33 Tylenol PO Q4H PRN Pain MILD(1-3)/Fever >100.5/PEREZ Acetaminophen 650 mg 02/12/19 22:18 02/13/19 00:15 Tylenol [place] 650 mg Q4H PRN Administration Pain, Mild (1-3) Acetaminophen/Hydrocodone Bitart 2 each 02/01/19 23:33 [place] 5/325 PO Q6H PRN Pain, Moderate (4-6) Hydromorphone HCl 0.5 mg 02/02/19 09:04 02/14/19 01:35 Dilaudid IV 0.5 mg Q3H PRN Administration Pain , Severe (7-10) Dextrose/Sodium Chloride 1,000 mls @ 75 mls/hr 02/14/19 13:00 02/15/19 08:37 D5ns IV 75 mls/hr DIRECT AYO Administration Lorazepam 1 mg 02/08/19 11:30 02/16/19 04:34 Ativan IV 1 mg Q6H PRN Administration Anxiety Metoprolol Tartrate 2.5 mg 02/02/19 16:33 02/14/19 23:35 Lopressor IV 2.5 mg Q6HR PRN Administration tachycardia Ondansetron HCl 4 mg 02/01/19 23:33 Zofran IV Q8H PRN Nausea And Vomiting Sodium Chloride 10 ml 02/02/19 10:00 02/16/19 02:31 Sodium Chloride Flush Syringe 10 Ml IV Not Given BID AYO Sodium Chloride 10 ml 02/01/19 23:33 02/16/19 04:35 Sodium Chloride Flush Syringe 10 Ml IV 10 ml PRN PRN Administration LINE FLUSH Nutrition/Malnutrition Assess - Dietary Evaluation Nutrition/Malnutrition Findings: Nutrition Notes Start: 02/02/19 15:14 Freq: Status: Active Protocol: Document 02/15/19 15:51 RM (Rec: 02/15/19 15:53 RM [id number]) Nutrition Notes Initial or Follow up Brief Note Subjective/Other Information Per director of caseworksenior insight manager international w/ family to discuss hospice is planned for 3 pm today. Nutrition Intervention Follow-Up By: 02/17/19 Additional Comments Follow for POC
[2019-02-17] MEDS: D5NS 1,000 ML IV SCH ×2 (03:18→17:35)
[2019-02-17] MEDS: LOPRESSOR IV PRN ×2 (09:20→17:52)
[2019-02-17] MEDS: SODIUM CHLORIDE FLUSH SYRINGE 10 ML IV SCH ×2 (09:22→22:00)
[2019-02-17 10:24] LABS: Hematocrit 24.2 % (30.3-42.9); Mean Corpuscular HGB Conc 33 % (30-34); Mean Corpuscular Volume 96 fl (79-97); Red Blood Count 2.53 M/mm3 (3.65-5.03)
[2019-02-17 10:37] LABS: Platelet Count 81 K/mm3 (140-440); Red Cell Distribution Width 25.2 % (13.2-15.2)
[2019-02-17 10:43] LABS: BUN/Creatinine Ratio 30; Blood Urea Nitrogen 6 mg/dL (7-17); Calcium 8.8 mg/dL (8.4-10.2); Hemolysis Index 11
[2019-02-17 11:52] LABS: Anisocytosis 2+; Basophils % (Manual) 0 % (0.0-1.8); Macrocytosis 1+; Platelet Estimate Consistent w Auto; Target Cells 2+; Total Cells Counted 100
--- NOTE | 2019-02-17 13:37 | Progress Note ---
Assessment and Plan Assessment and plan: Acute on chronic hypoxic respiratory failure -On continuous BiPAP, unable to taper off -Poor prognosis Acute metabolic encephalopathy, not present on admission -MS slightly improved today, will continue to monitor clinically Persistent sinus tachycardia -Continue Lopressor IV when necessary Bilateral pleural effusion -Likely malignant SIRS, present on admission -Probably due to noninfectious cause -Chest x-ray on 02/01 suspicious for LLL pneumonia, however CTA chest on same day negative for pneumonia Elevated BNP on admission -Probably due to volume overload -No reported history of CHF Stage IV breast cancer, with metastasis to the bone and spine -Status post lumpectomy -Cont supportive care. Pt was recently treated with palliative therapy at [facility] Chest pain/Dyspnea -Probably due to pathological fracture of left 10th rib -CTA chest negative for acute PE Mild hyponatremia -Improved Abnormal LFT -Probably secondary to metastasis Anemia of chronic disease -H&H stable Paraplegia -Continue supportive care History of hypertension -Blood pressure stable Nutrition -Patient refused NG tube placement. However, she can't be taken off BiPAP for oral diet because she's desaturates to the 60's. Family providing her with sips of drink. CODE STATUS: full Disposition: Poor prognosis, hospice recommended. However, despite extensive discussion with the family, they stated that they still want her to be full code and do not want hospice. CM looking for NHF that can accept BIPAP which is very challenging. History Interval history: Patient more awake today but more short of breath. However, still unable to communicate appropriately. Hospitalist Physical - Constitutional Vitals: Temp Pulse Resp BP Pulse Ox 98.2 F 102 H 20 120/74 945 H 02/17/19 08:06 02/17/19 13:27 02/17/19 13:27 02/17/19 09:20 02/17/19 13:27 General appearance: Present: mild distress, other (on BIPAP) - EENT Eyes: Present: PERRL, EOM intact ENT: clear oral mucosa - Neck Neck: Present: supple - Respiratory Respiratory effort: labored Respiratory: bilateral: rales - Cardiovascular Rhythm: regular (with tachycardia) Heart Sounds: Present: S1 & S2 - Extremities Extremity abnormal: edema (in BLE and BUE) - Abdominal General gastrointestinal: soft, non-tender, normal bowel sounds - Integumentary Integumentary: Present: clear, warm, dry - Neurologic Neurologic: moves all extremities Results - Labs CBC & Chem 7: 02/17/19 10:08 02/17/19 10:08 Labs: Laboratory Last Values WBC 10.4 K/mm3 (4.5-11.0) 02/17/19 10:08 RBC 2.53 M/mm3 (3.65-5.03) L 02/17/19 10:08 Hgb 8.0 gm/dl (10.1-14.3) L 02/17/19 10:08 Hct 24.2 % (30.3-42.9) L 02/17/19 10:08 MCV 96 fl (79-97) 02/17/19 10:08 MCH 32 pg (28-32) 02/17/19 10:08 MCHC 33 % (30-34) 02/17/19 10:08 RDW 25.2 % (13.2-15.2) H 02/17/19 10:08 Plt Count 81 K/mm3 (140-440) L 02/17/19 10:08 Lymph % (Auto) Eligibility Technician 02/03/19 04:43 [place] % (Auto) Eligibility Technician 02/03/19 04:43 Eos % (Auto) Eligibility Technician 02/03/19 04:43 Baso % (Auto) Eligibility Technician 02/03/19 04:43 Lymph # Eligibility Technician 02/03/19 04:43 [place] # Eligibility Technician 02/03/19 04:43 Eos # Eligibility Technician 02/03/19 04:43 Baso # Eligibility Technician 02/03/19 04:43 Add Manual Diff Complete 02/17/19 10:08 Total Counted 100 02/17/19 10:08 Seg Neutrophils % Eligibility Technician 02/03/19 04:43 Seg Neuts % (Manual) 91.0 % (40.0-70.0) H 02/17/19 10:08 2.0 % 02/17/19 10:08 2.0 % (13.4-35.0) L 02/17/19 10:08 Reactive Lymphs % (Man) 0 % 02/17/19 10:08 1.0 % (0.0-7.3) 02/17/19 10:08 2.0 % (0.0-4.3) 02/17/19 10:08 0 % (0.0-1.8) 02/17/19 10:08 1.0 % 02/17/19 10:08 1.0 % 02/17/19 10:08 0 % 02/17/19 10:08 0 % 02/17/19 10:08 Nucleated RBC % 32.0 % (0.0-0.9) H 02/17/19 10:08 Seg Neutrophils # Eligibility Technician 02/03/19 04:43 Seg Neutrophils # Man 0.0 K/mm3 (1.8-7.7) L 02/17/19 10:08 Band Neutrophils # 0.0 K/mm3 02/17/19 10:08 0.0 K/mm3 (1.2-5.4) L 02/17/19 10:08 Abs React Lymphs (Man) 0.0 K/mm3 02/17/19 10:08 0.0 K/mm3 (0.0-0.8) 02/17/19 10:08 0.0 K/mm3 (0.0-0.4) 02/17/19 10:08 0.0 K/mm3 (0.0-0.1) 02/17/19 10:08 0.0 K/mm3 02/17/19 10:08 0.0 K/mm3 02/17/19 10:08 0.0 K/mm3 02/17/19 10:08 Blast Cells # 0.0 K/mm3 02/17/19 10:08 WBC Morphology Not Reportable 02/17/19 10:08 Hypersegmented Neuts Not Reportable 02/17/19 10:08 Hyposegmented Neuts Not Reportable 02/17/19 10:08 Hypogranular Neuts Not Reportable 02/17/19 10:08 Not Reportable 02/17/19 10:08 Not Reportable 02/17/19 10:08 Not Reportable 02/17/19 10:08 Not Reportable 02/17/19 10:08 Not Reportable 02/17/19 10:08 Not Reportable 02/17/19 10:08 Consistent w auto 02/17/19 10:08 Not Reportable 02/17/19 10:08 Plt Clumps, EDTA Not Reportable 02/17/19 10:08 Not Reportable 02/17/19 10:08 Not Reportable 02/17/19 10:08 Not Reportable 02/17/19 10:08 Plt Morphology Comment Not Reportable 02/17/19 10:08 RBC Morphology Not Reportable 02/17/19 10:08 Dimorphic RBCs Not Reportable 02/17/19 10:08 2+ 02/17/19 10:08 Not Reportable 02/17/19 10:08 Not Reportable 02/17/19 10:08 2+ 02/17/19 10:08 Not Reportable 02/17/19 10:08 1+ 02/17/19 10:08 Not Reportable 02/17/19 10:08 Not Reportable 02/17/19 10:08 Not Reportable 02/17/19 10:08 2+ 02/17/19 10:08 Not Reportable 02/17/19 10:08 Not Reportable 02/17/19 10:08 Not Reportable 02/17/19 10:08 Not Reportable 02/17/19 10:08 Not Reportable 02/17/19 10:08 Not Reportable 02/17/19 10:08 Not Reportable 02/17/19 10:08 Not Reportable 02/17/19 10:08 Not Reportable 02/17/19 10:08 Acanthocytes (Spur) Not Reportable 02/17/19 10:08 Rouleaux Not Reportable 02/17/19 10:08 Not Reportable 02/17/19 10:08 Not Reportable 02/17/19 10:08 Not Reportable 02/17/19 10:08 1+ 02/17/19 10:08 Hem Pathologist Commnt No 02/17/19 10:08 PT 15.1 Sec. (12.2-14.9) H 02/01/19 18:00 INR 1.22 (0.87-1.13) H 02/01/19 18:00 APTT 27.2 Sec. (24.2-36.6) 02/01/19 18:00 6342.18 ng/mlDDU (0-234) H 02/01/19 18:00 POC ABG pH 7.449 (7.35-7.45) 02/02/19 09:49 POC ABG pCO2 39.9 (35-45) 02/02/19 09:49 POC ABG pO2 72 (80-105) L 02/02/19 09:49 POC ABG HCO3 27.6 (22-26 mml/L) 02/02/19 09:49 POC ABG Total CO2 29 (23-27mmol/L) 02/02/19 09:49 POC ABG O2 Sat 95 02/02/19 09:49 POC ABG Base Excess 4 ((-2) - (+3)mmol/L) 02/02/19 09:49 35 % 02/02/19 09:49 Sodium 139 mmol/L (137-145) 02/17/19 10:08 Potassium 4.0 mmol/L (3.6-5.0) 02/17/19 10:08 Chloride 109.3 mmol/L (98-107) H 02/17/19 10:08 Carbon Dioxide 24 mmol/L (22-30) 02/17/19 10:08 10 mmol/L 02/17/19 10:08 BUN 6 mg/dL (7-17) L 02/17/19 10:08 0.2 mg/dL (0.7-1.2) L 02/17/19 10:08 Estimated GFR > 60 ml/min 02/17/19 10:08 30 % 02/17/19 10:08 Glucose 138 mg/dL (65-100) H 02/17/19 10:08 POC Glucose 150 (70-105) H 02/17/19 12:41 Calcium 8.8 mg/dL (8.4-10.2) 02/17/19 10:08 Magnesium 2.30 mg/dL (1.7-2.3) 02/17/19 10:08 1.70 mg/dL (0.1-1.2) H 02/13/19 05:22 AST 72 units/L (5-40) H 02/13/19 05:22 ALT 25 units/L (7-56) 02/13/19 05:22 138 units/L (35-129) H 02/13/19 05:22 132 units/L (30-135) 02/01/19 18:00 CK-MB (CK-2) 3.8 ng/mL (0.0-4.0) 02/01/19 18:00 CK-MB (CK-2) Rel Index 2.8 (0-4) 02/01/19 18:00 < 0.010 ng/mL (0.00-0.029) 02/01/19 18:00 NT-Pro-B Natriuret Pep 1304 pg/mL (0-900) H 02/01/19 18:00 4.9 g/dL (6.3-8.2) L 02/13/19 05:22 2.2 g/dL (3.9-5) L 02/13/19 05:22 0.8 % 02/13/19 05:22 Active Medications - Current Medications Current Medications: Generic Name Dose Route Start Last Admin Trade Name Freq PRN Reason Stop Dose Admin Acetaminophen 650 mg 02/01/19 23:33 Tylenol PO Q4H PRN Pain MILD(1-3)/Fever >100.5/PEREZ Acetaminophen 650 mg 02/12/19 22:18 02/13/19 00:15 Tylenol [place] 650 mg Q4H PRN Administration Pain, Mild (1-3) Acetaminophen/Hydrocodone Bitart 2 each 02/01/19 23:33 [place] 5/325 PO Q6H PRN Pain, Moderate (4-6) Hydromorphone HCl 0.5 mg 02/02/19 09:04 02/14/19 01:35 Dilaudid IV 0.5 mg Q3H PRN Administration Pain , Severe (7-10) Dextrose/Sodium Chloride 1,000 mls @ 75 mls/hr 02/14/19 13:00 02/17/19 03:18 D5ns IV 75 mls/hr DIRECT AYO Administration Lorazepam 1 mg 02/08/19 11:30 02/16/19 04:34 Ativan IV 1 mg Q6H PRN Administration Anxiety Metoprolol Tartrate 2.5 mg 02/02/19 16:33 02/17/19 09:20 Lopressor IV 2.5 mg Q6HR PRN Administration tachycardia Ondansetron HCl 4 mg 02/01/19 23:33 Zofran IV Q8H PRN Nausea And Vomiting Sodium Chloride 10 ml 02/02/19 10:00 02/17/19 09:22 Sodium Chloride Flush Syringe 10 Ml IV 10 ml BID AYO Administration Sodium Chloride 10 ml 02/01/19 23:33 02/16/19 04:35 Sodium Chloride Flush Syringe 10 Ml IV 10 ml PRN PRN Administration LINE FLUSH Nutrition/Malnutrition Assess - Dietary Evaluation Nutrition/Malnutrition Findings: Nutrition Notes Start: 02/02/19 15:14 Freq: Status: Active Protocol: Document 02/15/19 15:51 RM (Rec: 02/15/19 15:53 RM [id number]) Nutrition Notes Initial or Follow up Brief Note Subjective/Other Information Per assistant case managerblood bank business manager w/ family to discuss hospice is planned for 3 pm today. Nutrition Intervention Follow-Up By: 02/17/19 Additional Comments Follow for POC
[2019-02-18] MEDS: DILAUDID IV PRN (04:46)
[2019-02-18] MEDS: SODIUM CHLORIDE FLUSH SYRINGE 10 ML IV SCH ×2 (10:10→21:06)
--- NOTE | 2019-02-18 12:41 | Progress Note ---
Assessment and Plan Assessment and plan: Acute on chronic hypoxic respiratory failure -On continuous BiPAP, unable to taper off -Poor prognosis Acute metabolic encephalopathy, not present on admission -MS slightly improved today, will continue to monitor clinically Persistent sinus tachycardia -Continue Lopressor IV when necessary Bilateral pleural effusion -Likely malignant SIRS, present on admission -Probably due to noninfectious cause -Chest x-ray on 02/01 suspicious for LLL pneumonia, however CTA chest on same day negative for pneumonia Elevated BNP on admission -Probably due to volume overload -No reported history of CHF Stage IV breast cancer, with metastasis to the bone and spine -Status post lumpectomy -Cont supportive care. Pt was recently treated with palliative therapy at [facility] Chest pain/Dyspnea -Probably due to pathological fracture of left 10th rib -CTA chest negative for acute PE Mild hyponatremia -Improved Abnormal LFT -Probably secondary to metastasis Anemia of chronic disease -H&H stable Paraplegia -Continue supportive care History of hypertension -Blood pressure stable Nutrition -Patient refused NG tube placement. However, she can't be taken off BiPAP for oral diet because she's desaturates to the 60's. Family providing her with sips of drink. CODE STATUS: full Disposition: Poor prognosis, hospice recommended. However, despite extensive discussion with the family, they still want her to be full code and do not want hospice. Patient does not qualify for LTAC due to 3 nights ICU stay rule which she does not have. CM looking for NHF that can accept BIPAP which is very chal lenging. History Interval history: Patient is unable to communicate appropriately. No significant change or new issues reported overnight Hospitalist Physical - Constitutional Vitals: Temp Pulse Resp BP Pulse Ox 98.2 F 134 H 20 147/106 94 02/18/19 07:47 02/18/19 10:00 02/18/19 10:00 02/18/19 07:47 02/18/19 10:00 General appearance: Present: severe distress, other (on BIPAP) - EENT Eyes: Present: PERRL, EOM intact ENT: clear oral mucosa - Neck Neck: Present: supple - Respiratory Respiratory effort: labored Respiratory: bilateral: diminished - Cardiovascular Rhythm: regular (with tachycardia) Heart Sounds: Present: S1 & S2 - Extremities Extremity abnormal: edema (in BUE and BLE) - Abdominal General gastrointestinal: soft, non-tender, normal bowel sounds - Integumentary Integumentary: Present: clear, warm - Neurologic Neurologic: other (patient opens eyes to external rub but unable to follow commands) Results - Labs CBC & Chem 7: 02/17/19 10:08 02/17/19 10:08 Labs: Laboratory Last Values WBC 10.4 K/mm3 (4.5-11.0) 02/17/19 10:08 RBC 2.53 M/mm3 (3.65-5.03) L 02/17/19 10:08 Hgb 8.0 gm/dl (10.1-14.3) L 02/17/19 10:08 Hct 24.2 % (30.3-42.9) L 02/17/19 10:08 MCV 96 fl (79-97) 02/17/19 10:08 MCH 32 pg (28-32) 02/17/19 10:08 MCHC 33 % (30-34) 02/17/19 10:08 RDW 25.2 % (13.2-15.2) H 02/17/19 10:08 Plt Count 81 K/mm3 (140-440) L 02/17/19 10:08 Lymph % (Auto) Furnace Repairer 02/03/19 04:43 [place] % (Auto) Furnace Repairer 02/03/19 04:43 Eos % (Auto) Furnace Repairer 02/03/19 04:43 Baso % (Auto) Furnace Repairer 02/03/19 04:43 Lymph # Furnace Repairer 02/03/19 04:43 Starr # Furnace Repairer 02/03/19 04:43 Eos # Furnace Repairer 02/03/19 04:43 Baso # Furnace Repairer 02/03/19 04:43 Add Manual Diff Complete 02/17/19 10:08 Total Counted 100 02/17/19 10:08 Seg Neutrophils % Furnace Repairer 02/03/19 04:43 Seg Neuts % (Manual) 91.0 % (40.0-70.0) H 02/17/19 10:08 2.0 % 02/17/19 10:08 2.0 % (13.4-35.0) L 02/17/19 10:08 Reactive Lymphs % (Man) 0 % 02/17/19 10:08 1.0 % (0.0-7.3) 02/17/19 10:08 2.0 % (0.0-4.3) 02/17/19 10:08 0 % (0.0-1.8) 02/17/19 10:08 1.0 % 02/17/19 10:08 1.0 % 02/17/19 10:08 0 % 02/17/19 10:08 0 % 02/17/19 10:08 Nucleated RBC % 32.0 % (0.0-0.9) H 02/17/19 10:08 Seg Neutrophils # Furnace Repairer 02/03/19 04:43 Seg Neutrophils # Man 0.0 K/mm3 (1.8-7.7) L 02/17/19 10:08 Band Neutrophils # 0.0 K/mm3 02/17/19 10:08 0.0 K/mm3 (1.2-5.4) L 02/17/19 10:08 Abs React Lymphs (Man) 0.0 K/mm3 02/17/19 10:08 0.0 K/mm3 (0.0-0.8) 02/17/19 10:08 0.0 K/mm3 (0.0-0.4) 02/17/19 10:08 0.0 K/mm3 (0.0-0.1) 02/17/19 10:08 0.0 K/mm3 02/17/19 10:08 0.0 K/mm3 02/17/19 10:08 0.0 K/mm3 02/17/19 10:08 Blast Cells # 0.0 K/mm3 02/17/19 10:08 WBC Morphology Not Reportable 02/17/19 10:08 Hypersegmented Neuts Not Reportable 02/17/19 10:08 Hyposegmented Neuts Not Reportable 02/17/19 10:08 Hypogranular Neuts Not Reportable 02/17/19 10:08 Not Reportable 02/17/19 10:08 Not Reportable 02/17/19 10:08 Not Reportable 02/17/19 10:08 Not Reportable 02/17/19 10:08 Not Reportable 02/17/19 10:08 Not Reportable 02/17/19 10:08 Consistent w auto 02/17/19 10:08 Not Reportable 02/17/19 10:08 Plt Clumps, EDTA Not Reportable 02/17/19 10:08 Not Reportable 02/17/19 10:08 Not Reportable 02/17/19 10:08 Not Reportable 02/17/19 10:08 Plt Morphology Comment Not Reportable 02/17/19 10:08 RBC Morphology Not Reportable 02/17/19 10:08 Dimorphic RBCs Not Reportable 02/17/19 10:08 2+ 02/17/19 10:08 Not Reportable 02/17/19 10:08 Not Reportable 02/17/19 10:08 2+ 02/17/19 10:08 Not Reportable 02/17/19 10:08 1+ 02/17/19 10:08 Not Reportable 02/17/19 10:08 Not Reportable 02/17/19 10:08 Not Reportable 02/17/19 10:08 2+ 02/17/19 10:08 Not Reportable 02/17/19 10:08 Not Reportable 02/17/19 10:08 Not Reportable 02/17/19 10:08 Not Reportable 02/17/19 10:08 Not Reportable 02/17/19 10:08 Not Reportable 02/17/19 10:08 Not Reportable 02/17/19 10:08 Not Reportable 02/17/19 10:08 Not Reportable 02/17/19 10:08 Acanthocytes (Spur) Not Reportable 02/17/19 10:08 Rouleaux Not Reportable 02/17/19 10:08 Not Reportable 02/17/19 10:08 Not Reportable 02/17/19 10:08 Not Reportable 02/17/19 10:08 1+ 02/17/19 10:08 Hem Pathologist Commnt No 02/17/19 10:08 PT 15.1 Sec. (12.2-14.9) H 02/01/19 18:00 INR 1.22 (0.87-1.13) H 02/01/19 18:00 APTT 27.2 Sec. (24.2-36.6) 02/01/19 18:00 6342.18 ng/mlDDU (0-234) H 02/01/19 18:00 POC ABG pH 7.449 (7.35-7.45) 02/02/19 09:49 POC ABG pCO2 39.9 (35-45) 02/02/19 09:49 POC ABG pO2 72 (80-105) L 02/02/19 09:49 POC ABG HCO3 27.6 (22-26 mml/L) 02/02/19 09:49 POC ABG Total CO2 29 (23-27mmol/L) 02/02/19 09:49 POC ABG O2 Sat 95 02/02/19 09:49 POC ABG Base Excess 4 ((-2) - (+3)mmol/L) 02/02/19 09:49 35 % 02/02/19 09:49 Sodium 139 mmol/L (137-145) 02/17/19 10:08 Potassium 4.0 mmol/L (3.6-5.0) 02/17/19 10:08 Chloride 109.3 mmol/L (98-107) H 02/17/19 10:08 Carbon Dioxide 24 mmol/L (22-30) 02/17/19 10:08 10 mmol/L 02/17/19 10:08 BUN 6 mg/dL (7-17) L 02/17/19 10:08 0.2 mg/dL (0.7-1.2) L 02/17/19 10:08 Estimated GFR > 60 ml/min 02/17/19 10:08 30 % 02/17/19 10:08 Glucose 138 mg/dL (65-100) H 02/17/19 10:08 POC Glucose 169 (70-105) H 02/18/19 12:11 Calcium 8.8 mg/dL (8.4-10.2) 02/17/19 10:08 Magnesium 2.30 mg/dL (1.7-2.3) 02/17/19 10:08 1.70 mg/dL (0.1-1.2) H 02/13/19 05:22 AST 72 units/L (5-40) H 02/13/19 05:22 ALT 25 units/L (7-56) 02/13/19 05:22 138 units/L (35-129) H 02/13/19 05:22 132 units/L (30-135) 02/01/19 18:00 CK-MB (CK-2) 3.8 ng/mL (0.0-4.0) 02/01/19 18:00 CK-MB (CK-2) Rel Index 2.8 (0-4) 02/01/19 18:00 < 0.010 ng/mL (0.00-0.029) 02/01/19 18:00 NT-Pro-B Natriuret Pep 1304 pg/mL (0-900) H 02/01/19 18:00 4.9 g/dL (6.3-8.2) L 02/13/19 05:22 2.2 g/dL (3.9-5) L 02/13/19 05:22 0.8 % 02/13/19 05:22 Active Medications - Current Medications Current Medications: Generic Name Dose Route Start Last Admin Trade Name Freq PRN Reason Stop Dose Admin Acetaminophen 650 mg 02/01/19 23:33 Tylenol PO Q4H PRN Pain MILD(1-3)/Fever >100.5/PEREZ Acetaminophen 650 mg 02/12/19 22:18 02/13/19 00:15 Tylenol [place] 650 mg Q4H PRN Administration Pain, Mild (1-3) Acetaminophen/Hydrocodone Bitart 2 each 02/01/19 23:33 [place] 5/325 PO Q6H PRN Pain, Moderate (4-6) Hydromorphone HCl 0.5 mg 02/02/19 09:04 02/18/19 04:46 Dilaudid IV 0.5 mg Q3H PRN Administration Pain , Severe (7-10) Dextrose/Sodium Chloride 1,000 mls @ 75 mls/hr 02/14/19 13:00 02/17/19 17:35 D5ns IV 75 mls/hr DIRECT AYO Administration Lorazepam 1 mg 02/08/19 11:30 02/16/19 04:34 Ativan IV 1 mg Q6H PRN Administration Anxiety Metoprolol Tartrate 2.5 mg 02/02/19 16:33 02/17/19 17:52 Lopressor IV 2.5 mg Q6HR PRN Administration tachycardia Ondansetron HCl 4 mg 02/01/19 23:33 Zofran IV Q8H PRN Nausea And Vomiting Sodium Chloride 10 ml 02/02/19 10:00 02/18/19 10:10 Sodium Chloride Flush Syringe 10 Ml IV 10 ml BID AYO Administration Sodium Chloride 10 ml 02/01/19 23:33 02/16/19 04:35 Sodium Chloride Flush Syringe 10 Ml IV 10 ml PRN PRN Administration LINE FLUSH Nutrition/Malnutrition Assess - Dietary Evaluation Nutrition/Malnutrition Findings: Nutrition Notes Start: 02/02/19 15:14 Freq: Status: Active Protocol: Document 02/17/19 14:50 RM (Rec: 02/17/19 15:03 RM [id number]) Nutrition Notes Initial or Follow up Reassessment Current Diagnosis Hypertension,Respiratory Failure Other Pertinent Diagnosis Acute on chronic resp failure, metastatic breast CA, Sacral PU, paraplegia Current Diet NPO Labs/Tests Reviewed Pertinent Medications Lasix Height 5 ft 6 in Weight 83.4 kg [place] Body Weight (kg) 59.09 BMI 29.7 Subjective/Other Information NPO ordered d/t BiPAP. Per progress note MD recommended hospice to family but family declined. Case management is looking for NH placement. Burn Absent Trauma Absent #1 Nutrition Diagnosis Malnutrition Diagnosis Progress(for reassessment Continues documentation) Is patient on ventilator? No Is Patient Ambulatory and/or Out of Bed No REE-([facility]-confined to bed) [phone] [facility]culation [facility] Additional Notes Pro needs 1-1.2g/k-87g/ day Fluid needs 1ml/kcal Nutrition Intervention Change Diet Order: Diet advancement when medically feasible Goal #1 Diet advancement Follow-Up By: 02/20/19 Additional Comments Follow for POC
[2019-02-18] MEDS: D5NS 1,000 ML IV SCH (21:06)
--- NOTE | 2019-02-19 09:41 | Progress Note ---
Assessment and Plan Assessment and plan: 58-year-old English female with medical history significant for stage IV breast cancer, metastasis to the bone and to the spinal cord with spinal compression is interested to the emergency department with complaints of shortness of breath. CTA was done in the emergency department and no PE was shown. Patient was recently discharged from [facility] to hospice care. I get the record from [facility] and she was admitted with the same problems. patient is full code and family wants everything to be done and don't want hospice care instead they want HH at discharge Acute on chronic hypoxic respiratory failure - Patient was on home oxygen - Continue BiPAP - Pulmonary consult appreciated - If patient deteriorates will intubate her, at this point patient may benefit from trache and vent and NH placement Persistent tachycardia - Continue on Lopressor IV when necessary Stage IV breast cancer, with metastatsis to the bone and spine, paraplegia - Supportive care - Was treated with palliative intent therapy at [facility] Chest pain/Dyspnea - due to pathological fracture of left 10th rib -CTA chest negative for acute PE Mild hyponatremia -Improved Abnormal LFT -Probably secondary to metastasis Anemia of chronic disease -H&H stable Paraplegia -Continue supportive care History of hypertension -Blood pressure stable Nutrition -Patient refused NG tube placement. However, she can't be taken off BiPAP for oral diet because she's desaturates to the 60's. Family providing her with sips of drink. CODE STATUS full Disposition; continue inpatient care. Poor prognosis, dw family, recommend that she return to hospice -her daughter was adamant that the mom was confused on pain meds when she made the decision for hospice and that they do not want hospice, they want full code and continued aggressive mgt CODE STATUS: full Disposition: Poor prognosis, hospice recommended. However, despite extensive discussion with the family, they still want her to be full code and do not want hospice. Patient does not qualify for LTAC due to 3 nights ICU stay rule which she does not have. CM looking for NHF that can accept BIPAP which is very challenging. History Interval history: Patient was seen and evaluated this morning, patient is in no respiratory distress. She is on BiPAP. Hospitalist Physical - Physical exam Narrative exam: patient is in respiratory distress. The patient appeared well nourished and normally developed. Vital signs as documented. Head exam is unremarkable. No scleral icterus . Neck is without jugular venous distension, thyromegaly, or carotid bruits. Lungs are clear to auscultation. Cardiac exam reveals tachycardia. Abdominal exam reveals normal bowel sounds, no masses, no organomegaly and no aortic enlargement. Extremities are nonedematous and both femoral and pedal pulses are normal. PUBLIC RELATIONS PLAYER:paraplegic. Hospitalist Physical - Constitutional Vitals: Temp Pulse Resp BP Pulse Ox 98.5 F 124 H 47 H 97/55 92 02/19/19 07:44 02/19/19 08:00 02/19/19 08:00 02/19/19 07:44 02/19/19 08:00 General appearance: Present: severe distress, other (on BIPAP) Results - Labs CBC & Chem 7: 02/17/19 10:08 02/17/19 10:08 Labs: Laboratory Last Values WBC 10.4 K/mm3 (4.5-11.0) 02/17/19 10:08 RBC 2.53 M/mm3 (3.65-5.03) L 02/17/19 10:08 Hgb 8.0 gm/dl (10.1-14.3) L 02/17/19 10:08 Hct 24.2 % (30.3-42.9) L 02/17/19 10:08 MCV 96 fl (79-97) 02/17/19 10:08 MCH 32 pg (28-32) 02/17/19 10:08 MCHC 33 % (30-34) 02/17/19 10:08 RDW 25.2 % (13.2-15.2) H 02/17/19 10:08 Plt Count 81 K/mm3 (140-440) L 02/17/19 10:08 Lymph % (Auto) Shellfish Meat Separator Operator 02/03/19 04:43 [place] % (Auto) Shellfish Meat Separator Operator 02/03/19 04:43 Eos % (Auto) Shellfish Meat Separator Operator 02/03/19 04:43 Baso % (Auto) Shellfish Meat Separator Operator 02/03/19 04:43 Lymph # Shellfish Meat Separator Operator 02/03/19 04:43 [place] # Shellfish Meat Separator Operator 02/03/19 04:43 Eos # Shellfish Meat Separator Operator 02/03/19 04:43 Baso # Shellfish Meat Separator Operator 02/03/19 04:43 Add Manual Diff Complete 02/17/19 10:08 Total Counted 100 02/17/19 10:08 Seg Neutrophils % Shellfish Meat Separator Operator 02/03/19 04:43 Seg Neuts % (Manual) 91.0 % (40.0-70.0) H 02/17/19 10:08 2.0 % 02/17/19 10:08 2.0 % (13.4-35.0) L 02/17/19 10:08 Reactive Lymphs % (Man) 0 % 02/17/19 10:08 1.0 % (0.0-7.3) 02/17/19 10:08 2.0 % (0.0-4.3) 02/17/19 10:08 0 % (0.0-1.8) 02/17/19 10:08 1.0 % 02/17/19 10:08 1.0 % 02/17/19 10:08 0 % 02/17/19 10:08 0 % 02/17/19 10:08 Nucleated RBC % 32.0 % (0.0-0.9) H 02/17/19 10:08 Seg Neutrophils # Shellfish Meat Separator Operator 02/03/19 04:43 Seg Neutrophils # Man 0.0 K/mm3 (1.8-7.7) L 02/17/19 10:08 Band Neutrophils # 0.0 K/mm3 02/17/19 10:08 0.0 K/mm3 (1.2-5.4) L 02/17/19 10:08 Abs React Lymphs (Man) 0.0 K/mm3 02/17/19 10:08 0.0 K/mm3 (0.0-0.8) 02/17/19 10:08 0.0 K/mm3 (0.0-0.4) 02/17/19 10:08 0.0 K/mm3 (0.0-0.1) 02/17/19 10:08 0.0 K/mm3 02/17/19 10:08 0.0 K/mm3 02/17/19 10:08 0.0 K/mm3 02/17/19 10:08 Blast Cells # 0.0 K/mm3 02/17/19 10:08 WBC Morphology Not Reportable 02/17/19 10:08 Hypersegmented Neuts Not Reportable 02/17/19 10:08 Hyposegmented Neuts Not Reportable 02/17/19 10:08 Hypogranular Neuts Not Reportable 02/17/19 10:08 Not Reportable 02/17/19 10:08 Not Reportable 02/17/19 10:08 Not Reportable 02/17/19 10:08 Not Reportable 02/17/19 10:08 Not Reportable 02/17/19 10:08 Not Reportable 02/17/19 10:08 Consistent w auto 02/17/19 10:08 Not Reportable 02/17/19 10:08 Plt Clumps, EDTA Not Reportable 02/17/19 10:08 Not Reportable 02/17/19 10:08 Not Reportable 02/17/19 10:08 Not Reportable 02/17/19 10:08 Plt Morphology Comment Not Reportable 02/17/19 10:08 RBC Morphology Not Reportable 02/17/19 10:08 Dimorphic RBCs Not Reportable 02/17/19 10:08 2+ 02/17/19 10:08 Not Reportable 02/17/19 10:08 Not Reportable 02/17/19 10:08 2+ 02/17/19 10:08 Not Reportable 02/17/19 10:08 1+ 02/17/19 10:08 Not Reportable 02/17/19 10:08 Not Reportable 02/17/19 10:08 Not Reportable 02/17/19 10:08 2+ 02/17/19 10:08 Not Reportable 02/17/19 10:08 Not Reportable 02/17/19 10:08 Not Reportable 02/17/19 10:08 Not Reportable 02/17/19 10:08 Not Reportable 02/17/19 10:08 Not Reportable 02/17/19 10:08 Not Reportable 02/17/19 10:08 Not Reportable 02/17/19 10:08 Not Reportable 02/17/19 10:08 Acanthocytes (Spur) Not Reportable 02/17/19 10:08 Rouleaux Not Reportable 02/17/19 10:08 Not Reportable 02/17/19 10:08 Not Reportable 02/17/19 10:08 Not Reportable 02/17/19 10:08 1+ 02/17/19 10:08 Hem Pathologist Commnt No 02/17/19 10:08 PT 15.1 Sec. (12.2-14.9) H 02/01/19 18:00 INR 1.22 (0.87-1.13) H 02/01/19 18:00 APTT 27.2 Sec. (24.2-36.6) 02/01/19 18:00 6342.18 ng/mlDDU (0-234) H 02/01/19 18:00 POC ABG pH 7.449 (7.35-7.45) 02/02/19 09:49 POC ABG pCO2 39.9 (35-45) 02/02/19 09:49 POC ABG pO2 72 (80-105) L 02/02/19 09:49 POC ABG HCO3 27.6 (22-26 mml/L) 02/02/19 09:49 POC ABG Total CO2 29 (23-27mmol/L) 02/02/19 09:49 POC ABG O2 Sat 95 02/02/19 09:49 POC ABG Base Excess 4 ((-2) - (+3)mmol/L) 02/02/19 09:49 35 % 02/02/19 09:49 Sodium 139 mmol/L (137-145) 02/17/19 10:08 Potassium 4.0 mmol/L (3.6-5.0) 02/17/19 10:08 Chloride 109.3 mmol/L (98-107) H 02/17/19 10:08 Carbon Dioxide 24 mmol/L (22-30) 02/17/19 10:08 10 mmol/L 02/17/19 10:08 BUN 6 mg/dL (7-17) L 02/17/19 10:08 0.2 mg/dL (0.7-1.2) L 02/17/19 10:08 Estimated GFR > 60 ml/min 02/17/19 10:08 30 % 02/17/19 10:08 Glucose 138 mg/dL (65-100) H 02/17/19 10:08 POC Glucose 152 (70-105) H 02/19/19 06:18 Calcium 8.8 mg/dL (8.4-10.2) 02/17/19 10:08 Magnesium 2.30 mg/dL (1.7-2.3) 02/17/19 10:08 1.70 mg/dL (0.1-1.2) H 02/13/19 05:22 AST 72 units/L (5-40) H 02/13/19 05:22 ALT 25 units/L (7-56) 02/13/19 05:22 138 units/L (35-129) H 02/13/19 05:22 132 units/L (30-135) 02/01/19 18:00 CK-MB (CK-2) 3.8 ng/mL (0.0-4.0) 02/01/19 18:00 CK-MB (CK-2) Rel Index 2.8 (0-4) 02/01/19 18:00 < 0.010 ng/mL (0.00-0.029) 02/01/19 18:00 NT-Pro-B Natriuret Pep 1304 pg/mL (0-900) H 02/01/19 18:00 4.9 g/dL (6.3-8.2) L 02/13/19 05:22 2.2 g/dL (3.9-5) L 02/13/19 05:22 0.8 % 02/13/19 05:22 Active Medications - Current Medications Current Medications: Generic Name Dose Route Start Last Admin Trade Name Freq PRN Reason Stop Dose Admin Acetaminophen 650 mg 02/01/19 23:33 Tylenol PO Q4H PRN Pain MILD(1-3)/Fever >100.5/PEREZ Acetaminophen 650 mg 02/12/19 22:18 02/13/19 00:15 Tylenol [place] 650 mg Q4H PRN Administration Pain, Mild (1-3) Acetaminophen/Hydrocodone Bitart 2 each 02/01/19 23:33 [place] 5/325 PO Q6H PRN Pain, Moderate (4-6) Hydromorphone HCl 0.5 mg 02/02/19 09:04 02/18/19 04:46 Dilaudid IV 0.5 mg Q3H PRN Administration Pain , Severe (7-10) Dextrose/Sodium Chloride 1,000 mls @ 75 mls/hr 02/14/19 13:00 02/18/19 21:06 D5ns IV 75 mls/hr DIRECT AYO Administration Lorazepam 1 mg 02/08/19 11:30 02/16/19 04:34 Ativan IV 1 mg Q6H PRN Administration Anxiety Metoprolol Tartrate 2.5 mg 02/02/19 16:33 02/17/19 17:52 Lopressor IV 2.5 mg Q6HR PRN Administration tachycardia Ondansetron HCl 4 mg 02/01/19 23:33 Zofran IV Q8H PRN Nausea And Vomiting Sodium Chloride 10 ml 02/02/19 10:00 02/18/19 21:06 Sodium Chloride Flush Syringe 10 Ml IV 10 ml BID AYO Administration Sodium Chloride 10 ml 02/01/19 23:33 02/16/19 04:35 Sodium Chloride Flush Syringe 10 Ml IV 10 ml PRN PRN Administration LINE FLUSH Nutrition/Malnutrition Assess - Dietary Evaluation Nutrition/Malnutrition Findings: Nutrition Notes Start: 02/02/19 15: 14 Freq: Status: Active Protocol: Document 02/17/19 14:50 RM (Rec: 02/17/19 15:03 RM [id number]) Nutrition Notes Initial or Follow up Reassessment Current Diagnosis Hypertension,Respiratory Failure Other Pertinent Diagnosis Acute on chronic resp failure, metastatic breast CA, Sacral PU, paraplegia Current Diet NPO Labs/Tests Reviewed Pertinent Medications Lasix Height 5 ft 6 in Weight 83.4 kg [place] Body Weight (kg) 59.09 BMI 29.7 Subjective/Other Information NPO ordered d/t BiPAP. Per progress note MD recommended hospice to family but family declined. Case management is looking for NH placement. Burn Absent Trauma Absent #1 Nutrition Diagnosis Malnutrition Diagnosis Progress(for reassessment Continues documentation) Is patient on ventilator? No Is Patient Ambulatory and/or Out of Bed No REE-([facility]-confined to bed) [phone] Calculation Used for Recommendations [facility] Additional Notes Pro needs 1-1.2g/k-87g/ day Fluid needs 1ml/kcal Nutrition Intervention Change Diet Order: Diet advancement when medically feasible Goal #1 Diet advancement Follow-Up By: 02/20/19 Additional Comments Follow for POC
[2019-02-19] MEDS: SODIUM CHLORIDE FLUSH SYRINGE 10 ML IV SCH (16:47)
[2019-02-19] MEDS: D5NS 1,000 ML IV SCH (18:36)
[2019-02-19] MEDS ORDERED: ADRENALIN ONE (18:50)
[2019-02-19 20:02] VITALS: BP 62/43
--- NOTE | 2019-02-19 20:55 | Event Note ---
Date: 02/19/19 Patient coded twice around 19 hours ACLS protocol was initiated After the first course patient was resuscitated and intubated and was transferred to ICU She had pulse and blood pressure of around [id number] She occurred again and is 1930 hrs. Second time she could not make it Patient was pronounced at 1940 hrs. certificate to be signed by Dr. Tapia Time of expiration 1940 hrs.
--- NOTE | 2019-02-19 22:22 | XRay Report ---
CHEST 1 VIEW 02/19/2019 7:25 PM INDICATION / CLINICAL INFORMATION: ETT PLACEMENT. COMPARISON: 02/01/2019 FINDINGS: SUPPORT DEVICES: ET tube has tip 4.5 cm above evan HEART / MEDIASTINUM: Cardiac silhouette remains moderately enlarged LUNGS / PLEURA: Moderate bilateral pulmonary opacities are present likely secondary to CHF. Small renu ateral pleural effusions, left greater than right No pneumothorax. ADDITIONAL FINDINGS: Marked gaseous distention of stomach without visualized NG tube IMPRESSION: 1. Bilateral pleural-parenchymal disease. 2. Marked gaseous distention of stomach. Recommend NG tube placement Signer Name: Yair Jansen MD Signed: 02/19/2019 10:18 PM Workstation Name: [id number]
--- NOTE | 2019-02-20 07:21 | Death Summary ---
Summary - Providers Consults: 02/02/19 07:18 Consult to Wound/ET Nurse [CONS] Routine Reason For Exam: wound eval - pressure ulcer at sacral area 02/19/19 09:37 Consult to Physician [CONS] Routine Comment: Consulting Provider: CHIKA PEDRO Physician Instructions: Reason For Exam: respiratory failure 02/19/19 10:39 Consult to Ethics Committee [CONS] Routine Reason For Exam: end of life discussion with family Attending: DEBBIE KIMBROUGH MD - summary Date of admission: 02/01/19 22:15 Date of : 02/19/19
[2019-02-20] MEDS ORDERED: LIDOCAINE VISCOUS 2% ONE (13:22)
[2019-02-20] MEDS ORDERED: NACL 0.9% 1000 ML ONE (13:22)
== END 2019-02-19 21:42 | DRG 208 ==
LOC: ED 16:46 → 4A 22:15 → 3A 02-19 12:08 → CC1 02-19 19:08
PROVIDERS: ADMIT Internal Medicine; ATTEND Internal Medicine
PROC: 5A09357 Assistance with Respiratory Ventilation, Less than 24 Consecutive Hours, Continuous Positive Airway Pressure (ICD-10-PCS; 2019-02-01)
PROC: 4A033R1 Measurement of Arterial Saturation, Peripheral, Percutaneous Approach (ICD-10-PCS; 2019-02-01)
PROC: 5A09357 Assistance with Respiratory Ventilation, Less than 24 Consecutive Hours, Continuous Positive Airway Pressure (ICD-10-PCS; 2019-02-02)
PROC: 5A09357 Assistance with Respiratory Ventilation, Less than 24 Consecutive Hours, Continuous Positive Airway Pressure (ICD-10-PCS; 2019-02-03)
PROC: 5A09357 Assistance with Respiratory Ventilation, Less than 24 Consecutive Hours, Continuous Positive Airway Pressure (ICD-10-PCS; 2019-02-04)
PROC: 5A09357 Assistance with Respiratory Ventilation, Less than 24 Consecutive Hours, Continuous Positive Airway Pressure (ICD-10-PCS; 2019-02-05)
PROC: 5A09357 Assistance with Respiratory Ventilation, Less than 24 Consecutive Hours, Continuous Positive Airway Pressure (ICD-10-PCS; 2019-02-06)
PROC: 5A09357 Assistance with Respiratory Ventilation, Less than 24 Consecutive Hours, Continuous Positive Airway Pressure (ICD-10-PCS; 2019-02-07)
PROC: 5A09357 Assistance with Respiratory Ventilation, Less than 24 Consecutive Hours, Continuous Positive Airway Pressure (ICD-10-PCS; 2019-02-08)
PROC: 5A09357 Assistance with Respiratory Ventilation, Less than 24 Consecutive Hours, Continuous Positive Airway Pressure (ICD-10-PCS; 2019-02-09)
PROC: 5A09357 Assistance with Respiratory Ventilation, Less than 24 Consecutive Hours, Continuous Positive Airway Pressure (ICD-10-PCS; 2019-02-10)
PROC: 5A09357 Assistance with Respiratory Ventilation, Less than 24 Consecutive Hours, Continuous Positive Airway Pressure (ICD-10-PCS; 2019-02-11)
PROC: 5A09357 Assistance with Respiratory Ventilation, Less than 24 Consecutive Hours, Continuous Positive Airway Pressure (ICD-10-PCS; 2019-02-12)
PROC: 5A09357 Assistance with Respiratory Ventilation, Less than 24 Consecutive Hours, Continuous Positive Airway Pressure (ICD-10-PCS; 2019-02-13)
PROC: 5A09357 Assistance with Respiratory Ventilation, Less than 24 Consecutive Hours, Continuous Positive Airway Pressure (ICD-10-PCS; 2019-02-14)
PROC: 5A09357 Assistance with Respiratory Ventilation, Less than 24 Consecutive Hours, Continuous Positive Airway Pressure (ICD-10-PCS; 2019-02-15)
PROC: 5A09357 Assistance with Respiratory Ventilation, Less than 24 Consecutive Hours, Continuous Positive Airway Pressure (ICD-10-PCS; 2019-02-16)
PROC: 5A09357 Assistance with Respiratory Ventilation, Less than 24 Consecutive Hours, Continuous Positive Airway Pressure (ICD-10-PCS; 2019-02-17)
PROC: 5A09357 Assistance with Respiratory Ventilation, Less than 24 Consecutive Hours, Continuous Positive Airway Pressure (ICD-10-PCS; 2019-02-18)
PROC: 5A1935Z Respiratory Ventilation, Less than 24 Consecutive Hours (ICD-10-PCS; principal; 2019-02-19)
PROC: 0BH17EZ Insertion of Endotracheal Airway into Trachea, Via Natural or Artificial Opening (ICD-10-PCS; 2019-02-19)
PROC: 5A09357 Assistance with Respiratory Ventilation, Less than 24 Consecutive Hours, Continuous Positive Airway Pressure (ICD-10-PCS; 2019-02-19)
DX: J96.21 Acute and chronic respiratory failure with hypoxia (principal); G93.41 Metabolic encephalopathy; M84.48XA Pathological fracture, other site, initial encounter for fracture; C50.919 Malignant neoplasm of unspecified site of unspecified female breast; G82.20 Paraplegia, unspecified; C79.51 Secondary malignant neoplasm of bone; E87.1 Hypo-osmolality and hyponatremia; R00.0 Tachycardia, unspecified; D63.8 Anemia in other chronic diseases classified elsewhere; M84.419A Pathological fracture, unspecified shoulder, initial encounter for fracture; R65.10 Systemic inflammatory response syndrome (SIRS) of non-infectious origin without acute organ dysfunction; I10 Essential (primary) hypertension; Z86.718 Personal history of other venous thrombosis and embolism
CPT/HCPCS: 36415; 36600; 71045; 71275; 80048; 80053; 82550; 82553; 82803; 82962; 83735; 83880; 84484; 85007; 85025; 85379; 85610; 85730; 87116; 92950; 93005; 93010; 94002; 94660; 94760; 96365; 99285; G0378; J0171; J0456; J0696; J1170; J1885; J1940; J2060; J7030; J7042; J7050; Q9967